=== PATIENT | male | born 1935 | race Caucasian/White ===

== ENCOUNTER 2016-07-10 01:17 | Emergency (ER) | payer MEDICARE, OTHER ==
[~2016-07-10] VITALS: Ht 180.3 cm; Wt 124.4 kg
[~2016-07-10 01:17] MED LIST: ACET-1574 PO; ALFU10TA23 PO; ASCO250T3 PO; ASCO500T3 PO; ASPI-630 PO; BUME2TAB PO; FINA5TAB PO; FURO-68 PO; FURO-69 PO; GABA600T2 PO; HYDR-2758 PO; METO50TA10 PO; METO50TA2 PO; MINE454C6 TP; MULT-245 PO; NIAC500T PO; POTA10TA10 PO; POTA20TA84 PO; RIVA20TA2 PO; SIMV40TA PO; VANC1VIA3 IV; WARF6TAB PO; ZINC110T PO; ZINC220C2 PO; ZINC220T PO; ZINC57OI TP
[2016-07-10 01:18] VITALS: BP 138/75
--- NOTE | 2016-07-10 01:50 | ED.ADGEN ---
Past History Past Medical History: Bronchitis, CHF, COPD Past Surgical History: No Surgical History Smoking: Cigarettes, Quit Greater Than 1 Year Alcohol Use: None Drug Use: None Adult General Chief Complaint Chief Complaint Right flank pain HPI HPI Patient is a 81 year old 2 male who presents with right lower back, flank pain states it started about an hour prior to calling EMS and the became very severe he took one of his pain meds and 2 of his 's tramadol. He states it was very sharp and made worse with twisting and turning. He states he's had discomfort like this before but never this severe. He has had a hiatal hernia repair and his gallbladder removed in the past. He denies any fevers chills nausea or vomiting. Currently states the pain is a 5 out of 10 and is bearable. He denies any testicular pain or discomfort. Review of Systems Review of Systems Constitutional: Denies fever or chills [] Eyes: Denies change in visual acuity, redness, or eye pain [] HENT: Denies nasal congestion or sore throat [] Respiratory: Denies cough or shortness of breath [] Cardiovascular: No additional information not addressed in HPI [] GI: Positive for for abdominal pain, denies any nausea, vomiting, bloody stools or diarrhea [] : Denies dysuria or hematuria [] Musculoskeletal: Denies back pain or joint pain [] Integument: Denies rash or skin lesions [] Neurologic: Denies headache, focal weakness or sensory changes [] Endocrine: Denies polyuria or polydipsia [] Current Medications Current Medications Current Medications Medications (Trade) Dose Ordered Sig/Ever Start Time Stop Time Status Last Admin Dose Admin Fentanyl Citrate (Fentanyl 2ml Vial) 100 mcg STK-MED ONCE 07/10/16 01:58 07/10/16 01:59 DC Info (Do NOT chart on this entry -- for MONITORING) 1 each PRN DAILY PRN 07/10/16 02:45 07/12/16 02:44 Iohexol (Omnipaque 300 Mg/ml) 75 ml 1X ONCE 07/10/16 02:45 07/10/16 02:46 DC 07/10/16 02:44 75 ML Sodium Chloride 1,000 ml @ 1,000 mls/hr Q1H 07/10/16 02:00 07/10/16 02:59 DC 07/10/16 02:00 1,000 MLS/HR Allergies Allergies Allergies Coded Allergies Type Severity Reaction Last Updated Verified No Known Drug Allergies 01/04/14 No Physical Exam Physical Exam Constitutional: Well developed, well nourished, no acute distress, non-toxic appearance. [] HENT: Normocephalic, atraumatic, bilateral external ears normal, oropharynx moist, no oral exudates, nose normal. [] Eyes: PERRLA, EOMI, conjunctiva normal, no discharge. [] Neck: Normal range of motion, no tenderness, supple, no stridor. [] Cardiovascular:Heart rate regular rhythm, no murmur [] Lungs & Thorax: Bilateral breath sounds clear to auscultation [] Abdomen: Bowel sounds high-pitched, mild tender to palpation in the right lower quadrant, soft, no masses, no pulsatile masses. [] Skin: Warm, dry, no erythema, no rash. [] Back: No tenderness, no CVA tenderness. [] Extremities: No tenderness, no cyanosis, no clubbing, ROM intact, no edema. [] Neurologic: Alert and oriented X 3, normal motor function, normal sensory function, no focal deficits noted. [] Psychologic: Affect normal, judgement normal, mood normal. [] Current Patient Data Vital Signs Vital Signs Date Time Temp Pulse Resp B/P (MAP) Pulse Ox O2 Delivery O2 Flow Rate FiO2 07/10/16 03:20 18 96 Room Air 07/10/16 01:18 98.2 85 Lab Results Laboratory Tests Test 07/10/16 01:35 07/10/16 01:45 Urine Collection Type Unknown Urine Color Yellow Urine Clarity Clear Urine pH 5.5 Urine Specific [place] 1.025 Urine Protein Neg (NEG-TRACE) Urine Glucose (UA) Neg mg/dL (NEG) Urine Ketones (Stick) Neg mg/dL (NEG) Urine Blood Neg (NEG) Urine Nitrite Neg (NEG) Urine Bilirubin Neg (NEG) Urine Urobilinogen Dipstick 0.2 mg/dL (0.2 mg/dL) Urine Leukocyte Esterase Trace (NEG) Urine RBC 0 /HPF (0-2) Urine WBC 11-20 /HPF (0-4) Urine Squamous Epithelial Cells Occ /LPF Urine Bacteria Few /HPF (0-FEW) White Blood Count 11.9 x10^3/uL (4.0-11.0) H Red Blood Count 4.66 x10^6/uL (4.30-5.70) Hemoglobin 13.4 g/dL (13.0-17.5) Hematocrit 41.7 % (39.0-53.0) Mean Corpuscular Volume 90 fL (79-100) Mean Corpuscular Hemoglobin 29 pg (25-35) Mean Corpuscular Hemoglobin Concent 32 g/dL (31-37) Red Cell Distribution Width 14.8 % (11.5-14.5) H Platelet Count 262 x10^3/uL (140-400) Neutrophils (%) (Auto) 67 % (31-73) Lymphocytes (%) (Auto) 21 % (24-48) L Monocytes (%) (Auto) 9 % (0-9) Eosinophils (%) (Auto) 2 % (0-3) Basophils (%) (Auto) 1 % (0-3) Neutrophils # (Auto) 8.0 x10^3uL (1.8-7.7) H Lymphocytes # (Auto) 2.5 x10^3/uL (1.0-4.8) Monocytes # (Auto) 1.1 x10^3/uL (0.0-1.1) Eosinophils # (Auto) 0.2 x10^3/uL (0.0-0.7) Basophils # (Auto) 0.1 x10^3/uL (0.0-0.2) Prothrombin Time 10.3 SEC (9.4-11.4) Prothrombin Time INR 1.0 (0.9-1.1) PTT 25 SEC (23-33) Sodium Level 142 mmol/L (136-145) Potassium Level 3.7 mmol/L (3.5-5.1) Chloride Level 104 mmol/L (98-107) Carbon Dioxide Level 28 mmol/L (21-32) Anion Gap 10 (6-14) Blood Urea Nitrogen 14 mg/dL (8-26) Creatinine 1.1 mg/dL (0.7-1.3) Estimated GFR (Cockcroft-Gault) 64.4 Glucose Level 106 mg/dL (70-99) H Calcium Level 8.9 mg/dL (8.5-10.1) Total Bilirubin 0.3 mg/dL (0.2-1.0) Direct Bilirubin 0.1 mg/dL (0.0-0.2) Aspartate Amino Transferase (AST) 14 U/L (15-37) L Alanine Aminotransferase (ALT) 17 U/L (16-63) Alkaline Phosphatase 88 U/L (46-116) Creatine Kinase 53 U/L (39-308) Total Protein 8.0 g/dL (6.4-8.2) Albumin 3.3 g/dL (3.4-5.0) L Lipase 191 U/L (73-393) EKG EKG [] Radiology/Procedures Radiology/Procedures [address] [address] IMAGING REPORT Signed PATIENT: JAMES DAVID ACCOUNT: [id number] : 1935 LOCATION: ER AGE: 81 SEX: M EXAM STATUS: REG ER ORD. PHYSICIAN: MARY INTERIANO MD REASON: abd pain PROCEDURE: CT ABD PELV W/ IV CONTRST ONLY PROCEDURE CT abdomen pelvis with contrast. HISTORY Severe right anterior abdominal and flank pain today. History of bladder cancer. TECHNIQUE Helical CT imaging of the abdomen and pelvis is performed after 75 cc Omnipaque 300 IV contrast. PQRS: One or more the following individualized dose reduction techniques were utilized for the study: 1. Automated exposure control. 2. Adjustment of the mA and/or kV according to patient size. 3. Use of iterative reconstruction technique. COMPARISON CT abdomen and pelvis July 17, 2015. FINDINGS Pericardial calcification re- demonstrated. Cardiac size upper limits of normal. Chronic posterior pleural thickening is unchanged. Mild atelectasis or scarring in the posterior lower lobes bilaterally. Cholecystectomy. Tiny hypodensity in the left hepatic lobe, too small to further characterize. Liver otherwise homogeneous. The spleen, pancreas, and adrenal glands are normal. Moderate atherosclerotic calcification of the abdominal aorta, no aneurysm. Infrarenal IVC filter. Bilateral renal cysts. No hydronephrosis. Stomach is not well distended limiting evaluation. No abdominal adenopathy or free fluid. No dilated small bowel. Moderate colon diverticulosis without evidence of diverticulitis. No colon wall thickening is identified. The appendix is normal. No bladder wall thickening is seen. There is a 1.3 centimeter soft tissue density in the lumen of the left posterior lateral bladder, image 79. Prostate size normal. Prostate protrudes into the base of the bladder. No pelvic free fluid. No acute bone abnormality. IMPRESSION 1. Small round soft tissue density in the left lateral bladder. Recurrent tumor cannot be excluded. 2. Moderate colon diverticulosis without evidence of diverticulitis. 3. Bilateral renal cysts. 4. Stable bilateral chronic pleural thickening. Electronically signed by: Xavier Caballero MD (July 10, 2016 03:23:05) DICTATED AND SIGNED BY: XAVIER CABALLERO MD DATE: 07/10/16 0323 CC: MARY INTERIANO MD; FELISHA SAEED MD ~ Course & Med Decision Making Course & Med Decision Making Pertinent Labs and Imaging studies reviewed. (See chart for details) CT scan shows an area in the urinary bladder that could be suspicious for recurrence of his tumor. Otherwise his labs show white blood cells in his urine without any other signs of infection. CT scan is nonacute. Patient feels better. His pain has improved without pain medicine. He is agreeable being discharged home and follow-up with his urologist at and his primary care physician. Please return back to ER for worsening pain, fevers, other concerns. He and his son are agreeable to the plan and being discharged in stable condition this time. Final Impression Final Impression Back pain Problems: Dragon Disclaimer Dragon Disclaimer This electronic medical record was generated, in whole or in part, using a voice recognition dictation system. MARY INTERIANO MD July 10, 2016 01:50
[2016-07-10] MEDS ORDERED: fentaNYL PF 100 MCG/2 ML VIAL ONE (01:58)
[2016-07-10 01:59] LABS: BASO # 0.1 x10^3/uL (0.0-0.2); BASO % 1 % (0-3); EOS # 0.2 x10^3/uL (0.0-0.7); EOS % 2 % (0-3); HEMATOCRIT 41.7 % (39.0-53.0); HEMOGLOBIN 13.4 g/dL (13.0-17.5); LYMPH # 2.5 x10^3/uL (1.0-4.8); LYMPH % 21 % (24-48); MEAN CORPUSCULAR HEMOGLOBIN 29 pg (25-35); MEAN CORPUSCULAR HGB CONC 32 g/dL (31-37); MEAN CORPUSCULAR VOLUME 90 fL (79-100); MONO # 1.1 x10^3/uL (0.0-1.1); MONO % 9 % (0-9); NEUT % 67 % (31-73); PLATELET COUNT 262 x10^3/uL (140-400); RED BLOOD COUNT 4.66 x10^6/uL (4.30-5.70); RED CELL DISTRIBUTION WIDTH 14.8 % (11.5-14.5); WHITE BLOOD COUNT 11.9 x10^3/uL (4.0-11.0)
[2016-07-10] MEDS ORDERED: fentaNYL PF 100 MCG/2 ML VIAL IV PRN (02:00)
[2016-07-10] MEDS ORDERED: IV NORMAL SALINE 1,000ML 1,000 ML IV SCH (02:00)
[2016-07-10 02:11] LABS: ALBUMIN 3.3 g/dL (3.4-5.0); CALCIUM 8.9 mg/dL (8.5-10.1); CREATININE 1.1 mg/dL (0.7-1.3); DIRECT BILIRUBIN 0.1 mg/dL (0.0-0.2); GFR 64.4; POTASSIUM 3.7 mmol/L (3.5-5.1); TOTAL BILIRUBIN 0.3 mg/dL (0.2-1.0)
[2016-07-10 02:14] LABS: BACTERIA,URINE FEW /HPF (0-FEW); BILIRUBIN,URINE NEG (NEG); CLARITY,URINE CLEAR; COLOR,URINE YELLOW; GLUCOSE,URINE NEG (NEG); NITRITE,URINE NEG (NEG); RBC,URINE 0 /HPF (0-2); SQUAMOUS EPITHELIAL CELL,UR OCC /LPF; UROBILINOGEN,URINE 0.2 mg/dL (0.2 mg/dL)
[2016-07-10] MEDS ORDERED: CONTRAST GIVEN MC PRN (02:45)
[2016-07-10] MEDS ORDERED: IOHEXOL 300 MG/ML 75 ML VIAL. IV ONE (02:45)
--- NOTE | 2016-07-10 03:24 | RAD ---
PROCEDURE CT abdomen pelvis with contrast. HISTORY Severe right anterior abdominal and flank pain today. History of bladder cancer. TECHNIQUE Helical CT imaging of the abdomen and pelvis is performed after 75 cc Omnipaque 300 IV contrast. PQRS: One or more the following individualized dose reduction techniques were utilized for the study: 1. Automated exposure control. 2. Adjustment of the mA and/or kV according to patient size. 3. Use of iterative reconstruction technique. COMPARISON CT abdomen and pelvis July 17, 2015. FINDINGS Pericardial calcification re- demonstrated. Cardiac size upper limits of normal. Chronic posterior pleural thickening is unchanged. Mild atelectasis or scarring in the posterior lower lobes bilaterally. Cholecystectomy. Tiny hypodensity in the left hepatic lobe, too small to further characterize. Liver otherwise homogeneous. The spleen, pancreas, and adrenal glands are normal. Moderate atherosclerotic calcification of the abdominal aorta, no aneurysm. Infrarenal IVC filter. Bilateral renal cysts. No hydronephrosis. Stomach is not well distended limiting evaluation. No abdominal adenopathy or free fluid. No dilated small bowel. Moderate colon diverticulosis without evidence of diverticulitis. No colon wall thickening is identified. The appendix is normal. No bladder wall thickening is seen. There is a 1.3 centimeter soft tissue density in the lumen of the left posterior lateral bladder, image 79. Prostate size normal. Prostate protrudes into the base of the bladder. No pelvic free fluid. No acute bone abnormality. IMPRESSION 1. Small round soft tissue density in the left lateral bladder. Recurrent tumor cannot be excluded. 2. Moderate colon diverticulosis without evidence of diverticulitis. 3. Bilateral renal cysts. 4. Stable bilateral chronic pleural thickening. Electronically signed by: Xavier Caballero MD (July 10, 2016 03:23:05)
== END 2016-07-10 04:30 | disposition home or self-care (01) ==
LOC: ER 01:17
DX: M54.89 Other dorsalgia (principal); J44.9 Chronic obstructive pulmonary disease, unspecified; I50.9 Heart failure, unspecified; Z87.891 Personal history of nicotine dependence
CPT/HCPCS: 36415; 74177; 80048; 80076; 81001; 82550; 83690; 85027; 85610; 85730; 87086; 96361; 96374; 99285; J3010; Q9967; J7030

== ENCOUNTER 2016-08-10 20:37 | Emergency (ER) | payer MEDICARE, OTHER ==
[~2016-08-10] VITALS: Ht 180.3 cm; Wt 124.4 kg
[2016-08-10 20:45] VITALS: BP 137/68
--- NOTE | 2016-08-10 21:01 | PHYS DOC ---
Past History Past Medical History: Bronchitis, CHF, COPD Past Surgical History: No Surgical History Smoking: Cigarettes, Quit Greater Than 1 Year Alcohol Use: None Drug Use: None Adult General Chief Complaint Chief Complaint: BACK PAIN OR INJURY HPI HPI Patient is a 81 year old M who presents with left flank pain that started while at dinner prior to arrival. Patient states he is admitted dinner and developed this left flank pain that wraps around to his left lower quadrant. Patient has no history of kidney stones. Patient denies any history of dysuria or blood in his urine. Patient denies any history of known abdominal aortic aneurysm. Patient denies any chest pain or shortness of breath. Patient denies any nausea/ vomiting/diarrhea. Patient states the pain is persisted any contact comfortable therefore came the emergency room. Pertinent exam findings: Positive tenderness to palpation of the left flank and left lower quadrant with no rebound tenderness, bowel sounds heard in all 4 quadrants ED course: Patient was seen and examined CBC, CMP, lipase, UA, CT scan abdomen and pelvis with contrast, 1 L normal saline bolus was ordered 0009: Updated patient on lab results and CT scan results patient is feeling better and wants to go home. Pertinent results: Laboratory was unremarkable CT scan abdomen and pelvis: IMPRESSION: Stable 15 mm nodule of the left lateral urinary bladder wall. Stable enlargement of the prostate gland which indents the floor of the the urinary bladder. Stable complex small posterior left-sided pleural fluid collection. No new abnormality of the abdomen or pelvis. MDM: After reviewing the chart, CC/HPI/PMH, physical exam, [lab results], [ radiological results], I do not believe the patient has an intra-abdominal emergency warranting further workup and/or admission at this time. Patient was made aware of the abnormalities noted on the CT scan for the enlarged prostate and a nodule on his bladder which urinary new about. It is recommended patient follow up with PCP in one to 2 days. Patient wants to go home. Patient is stable for discharge. Additional verbal discharge instructions were provided to the patient and that if symptoms get worse or any new symptoms arise that are worrisome to the patient he is to return to the emergency room immediately Review of Systems Review of Systems GEN: Denies fevers, chills, sweats HEENT: Denies blurred vision, sore throat CV: Denies chest pain RESP: Denies shortness of air, cough GI: Left flank pain NEURO: Denies confusion, dizziness MSK: Denies weakness, joint pain/swelling Current Medications Current Medications Current Medications Medications (Trade) Dose Ordered Sig/Ever Start Time Stop Time Status Last Admin Dose Admin Sodium Chloride 1,000 ml @ 1,000 mls/hr 1X ONCE 08/10/16 21:00 08/10/16 21:59 UNV Allergies Allergies Allergies Coded Allergies Type Severity Reaction Last Updated Verified No Known Drug Allergies 01/04/14 No Physical Exam Physical Exam GEN.: No apparent distress. Alert and oriented. HEENT: Head is normocephalic, atraumatic NECK: Supple. LUNGS: CTAB. HEART: RRR, S1, S2 present. Peripheral pulses intact ABDOMEN: Soft, Positive tenderness to palpation of the left flank and left lower quadrant with no rebound tenderness, bowel sounds heard in all 4 quadrants EXTREMITIES: Without any cyanosis. NEUROLOGIC: Normal speech, normal tone PSYCHIATRIC: Normal affect, normal mood. SKIN: No ulcerations Current Patient Data Lab Results Laboratory Tests Test 08/10/16 21:34 White Blood Count 9.8 x10^3/uL Red Blood Count 4.10 x10^6/uL Hemoglobin 11.8 g/dL Hematocrit 36.7 % Mean Corpuscular Volume 90 fL Mean Corpuscular Hemoglobin 29 pg Mean Corpuscular Hemoglobin Concent 32 g/dL Red Cell Distribution Width 15.1 % Platelet Count 200 x10^3/uL Neutrophils (%) (Auto) 69 % Lymphocytes (%) (Auto) 19 % Monocytes (%) (Auto) 10 % Eosinophils (%) (Auto) 2 % Basophils (%) (Auto) 1 % Neutrophils # (Auto) 6.7 x10^3uL Lymphocytes # (Auto) 1.9 x10^3/uL Monocytes # (Auto) 1.0 x10^3/uL Eosinophils # (Auto) 0.2 x10^3/uL Basophils # (Auto) 0.1 x10^3/uL Urine Collection Type Unknown Urine Color Straw Urine Clarity Clear Urine pH 6.0 Urine Specific [place] 1.020 Urine Protein Neg Urine Glucose (UA) Neg mg/dL Urine Ketones (Stick) Neg mg/dL Urine Blood Neg Urine Nitrite Neg Urine Bilirubin Neg Urine Urobilinogen Dipstick 1 mg/dL Urine Leukocyte Esterase Trace Urine RBC 0 /HPF Urine WBC 1-4 /HPF Urine Squamous Epithelial Cells Many /LPF Urine Bacteria 0 /HPF Urine Mucus Slight /LPF Sodium Level 142 mmol/L Potassium Level 3.9 mmol/L Chloride Level 107 mmol/L Carbon Dioxide Level 26 mmol/L Anion Gap 9 Blood Urea Nitrogen 17 mg/dL Creatinine 1.1 mg/dL Estimated GFR (Cockcroft-Gault) 64.4 BUN/Creatinine Ratio 15 Glucose Level 106 mg/dL Lactic Acid Level 1.4 mmol/L Calcium Level 8.6 mg/dL Total Bilirubin 0.2 mg/dL Aspartate Amino Transf (AST/SGOT) 15 U/L Alanine Aminotransferase (ALT/SGPT) 17 U/L Alkaline Phosphatase 78 U/L Total Protein 7.0 g/dL Albumin 3.0 g/dL Albumin/Globulin Ratio 0.8 Lipase 122 U/L Current Medications Medications (Trade) Dose Ordered Sig/Ever Route PRN Reason Start Time Stop Time Status Last Admin Dose Admin Sodium Chloride 1,000 ml @ 1,000 mls/hr 1X ONCE IV 08/10/16 21:15 08/10/16 22:14 DC 08/10/16 21:30 Iohexol (Omnipaque 300 Mg/ml) 75 ml 1X ONCE IV 08/10/16 21:15 08/10/16 21:16 DC 08/10/16 21:58 Info (Do NOT chart on this entry -- for MONITORING) 1 each PRN DAILY PRN MC SEE COMMENTS 08/10/16 21:15 08/12/16 21:14 EKG EKG [] Radiology/Procedures Radiology/Procedures CT scan abdomen and pelvis: IMPRESSION: Stable 15 mm nodule of the left lateral urinary bladder wall. Stable enlargement of the prostate gland which indents the floor of the the urinary bladder. Stable complex small posterior left-sided pleural fluid collection. No new abnormality of the abdomen or pelvis.[] Course & Med Decision Making Course & Med Decision Making Pertinent Labs and Imaging studies reviewed. (See chart for details) [] Dragon Disclaimer Dragon Disclaimer This chart was dictated in whole or in part using Voice Recognition software in a busy, high-work load, and often noisy Emergency Department environment. It may contain unintended and wholly unrecognized errors or omissions. Departure Departure: Impression: Primary Impression: Left flank pain Disposition: HOME, SELF-CARE Condition: IMPROVED Referrals: FELISHA SAEED MD (PCP) Patient Instructions: Abdominal Pain (Nonspecific) Additional Instructions: Please follow up with her family doctor in the next one to 2 days and return symptoms increase GORDO WILD DO Aug 10, 2016 21:01
[2016-08-10] MEDS ORDERED: IV NORMAL SALINE 1,000ML 1,000 ML IV ONE (21:15)
[2016-08-10] MEDS ORDERED: IOHEXOL 300 MG/ML 75 ML VIAL. IV ONE (21:15)
[2016-08-10] MEDS ORDERED: CONTRAST GIVEN MC PRN (21:15)
[2016-08-10 22:02] LABS: BASO # 0.1 x10^3/uL (0.0-0.2); BASO % 1 % (0-3); EOS # 0.2 x10^3/uL (0.0-0.7); EOS % 2 % (0-3); HEMATOCRIT 36.7 % (39.0-53.0); HEMOGLOBIN 11.8 g/dL (13.0-17.5); LYMPH # 1.9 x10^3/uL (1.0-4.8); LYMPH % 19 % (24-48); MEAN CORPUSCULAR HEMOGLOBIN 29 pg (25-35); MEAN CORPUSCULAR HGB CONC 32 g/dL (31-37); MEAN CORPUSCULAR VOLUME 90 fL (79-100); MONO % 10 % (0-9); NEUT # 6.7 x10^3uL (1.8-7.7); NEUT % 69 % (31-73); PLATELET COUNT 200 x10^3/uL (140-400); RED CELL DISTRIBUTION WIDTH 15.1 % (11.5-14.5); WHITE BLOOD COUNT 9.8 x10^3/uL (4.0-11.0)
[2016-08-10 22:13] LABS: ALBUMIN/GLOBULIN RATIO 0.8 (1.0-1.7); CALCIUM 8.6 mg/dL (8.5-10.1); CREATININE 1.1 mg/dL (0.7-1.3); GFR 64.4; POTASSIUM 3.9 mmol/L (3.5-5.1); TOTAL BILIRUBIN 0.2 mg/dL (0.2-1.0)
[2016-08-10 22:57] LABS: BACTERIA,URINE 0 /HPF (0-FEW); BILIRUBIN,URINE NEG (NEG); CLARITY,URINE CLEAR; COLOR,URINE STRAW; GLUCOSE,URINE NEG (NEG); NITRITE,URINE NEG (NEG); RBC,URINE 0 /HPF (0-2); SQUAMOUS EPITHELIAL CELL,UR MANY /LPF; UROBILINOGEN,URINE 1 mg/dL (0.2 mg/dL)
--- NOTE | 2016-08-10 23:26 | RAD ---
CT study of the abdomen and pelvis with contrast Clinical indications: Severe left flank pain with periodic cramping. History of hiatal hernia repair and cholecystectomy and bladder cancer. TECHNIQUE: After IV infusion of 75 cc of Omnipaque 300, helical CT scanning of the abdomen and pelvis was performed. No GI contrast was administered. This may decrease the sensitivity to detect GI tract pathology. PQRS compliance Statement One or more of the following individualized dose reduction techniques were utilized for this study: 1. Automated exposure control 2. Adjustment of the mA and/or kV according to patient size 3. Use of iterative reconstruction technique COMPARISON: July 10, 2016. FINDINGS: Small cyst of the left lobe of the liver is unchanged. The spleen is not enlarged. Diffuse fatty atrophy of the pancreas is seen. The gallbladder is surgically absent. No extrahepatic biliary ductal dilatation is seen. No adrenal mass is evident. Bilateral renal cysts are seen. No hydronephrosis or hydroureter is seen. There is a nodule of the left lateral aspect of the urinary bladder which measures 15 mm. This is unchanged. There is enlargement of the prostate gland which indents the floor of the urinary bladder. This is unchanged. No focal aneurysmal dilatation of the abdominal aorta is seen. IVC filter is in place. No enlarged abdominal or pelvic lymphadenopathy is seen. No obstructive bowel pattern is seen. The appendix is normal. No free intraperitoneal air or free fluid or mesenteric edema is seen. There is mild pleural thickening posteriorly on the right side. There is a small complex posterior left sided pleural fluid collection which is unchanged. Again seen is calcification of pericardium. Old healed lower right rib cage fracture is seen. No osteolytic process is seen. IMPRESSION: Stable 15 mm nodule of the left lateral urinary bladder wall. Stable enlargement of the prostate gland which indents the floor of the the urinary bladder. Stable complex small posterior left-sided pleural fluid collection. No new abnormality of the abdomen or pelvis. Electronically signed by: Darrick Gipson MD (08/10/2016 11:23 PM)
== END 2016-08-11 00:25 | disposition home or self-care (01) ==
LOC: ER 20:37
DX: R10.32 Left lower quadrant pain (principal); J44.9 Chronic obstructive pulmonary disease, unspecified; I50.9 Heart failure, unspecified; F17.210 Nicotine dependence, cigarettes, uncomplicated
CPT/HCPCS: 36415; 74177; 80053; 81001; 83605; 83690; 85027; 96360; 99285; Q9967; J7030

== ENCOUNTER → 2016-10-24 | Outpatient (CLI) | payer MEDICARE, OTHER ==
--- NOTE | 2016-10-24 11:34 | RAD ---
Right foot, 3 views, 10/24/2016: History: Toe pain, injury There is a mild hallux valgus deformity with associated degenerative change at the first MTP joint. The bony structures are demineralized. No acute fracture or dislocation is identified. IMPRESSION: 1. Demineralization. 2. No acute bony abnormality is detected. 3. Mild hallux valgus deformity with degenerative change at the first MTP joint.
== END | disposition home or self-care (01) ==
LOC: DXRADRC 11:12
PROVIDERS: ATTEND Physician Assistant Medical
DX: S99.921D Unspecified injury of right foot, subsequent encounter (principal); M20.11 Hallux valgus (acquired), right foot; X58.XXXD Exposure to other specified factors, subsequent encounter
CPT/HCPCS: 73630

== ENCOUNTER 2018-05-22 15:59 | Emergency (ER) | payer MEDICARE, OTHER ==
[~2018-05-22] VITALS: Ht 182.9 cm; Wt 120.2 kg
[~2018-05-22 15:59] MED LIST changes: +DIAZ5TAB PO; -GABA600T2 PO; +GABA600T7 PO; +HYDR-2155 PO; -HYDR-2758 PO; +IBUP200T44 PO; -METO50TA10 PO; -METO50TA2 PO; +METO50TA29 PO; +METO50TA6 PO
--- NOTE | 2018-05-22 16:29 | PHYS DOC ---
Past History Past Medical History: A-Fib, High Cholesterol, Heart Disease, Hypertension Past Surgical History: Cholecystectomy, Other Additional Past Surgical Histo: hernia repair, Smoking: Non-smoker Alcohol Use: Rarely Drug Use: None Adult General Chief Complaint Chief Complaint: BACK PAIN - NO INJURY HPI HPI 83-year-old male presents with bilateral low back pain. Patient states that he was sitting on the couch yesterday evening when he started to have discomfort. It feels like a tight grabbing sensation. It comes and goes in waves. He denies any trauma, falls, or overuse. He has chronic pain for which he takes Nucynta, an opiod. He took 2 of these prior to arrival without relief. He denies dysuria or urinary frequency. Review of Systems Review of Systems Constitutional: Denies fever or chills [] Eyes: Denies change in visual acuity, redness, or eye pain [] HENT: Denies nasal congestion or sore throat [] Respiratory: Denies cough or shortness of breath [] Cardiovascular: No additional information not addressed in HPI [] GI: Denies abdominal pain, nausea, vomiting, bloody stools or diarrhea [] : Denies dysuria or hematuria [] Musculoskeletal: Bilateral low back pain[] Integument: Denies rash or skin lesions [] Neurologic: Denies headache, focal weakness or sensory changes [] Endocrine: Denies polyuria or polydipsia [] All other systems were reviewed and found to be within normal limits, except as documented in this note. Current Medications Current Medications Current Medications Medications (Trade) Dose Ordered Sig/Ever Start Time Stop Time Status Last Admin Dose Admin Diazepam (Valium) 5 mg 1X ONCE 05/22/18 16:30 05/22/18 16:31 UNV Allergies Allergies Allergies Coded Allergies Type Severity Reaction Last Updated Verified No Known Drug Allergies 03/24/17 No Physical Exam Physical Exam Constitutional: Well developed, obese, well nourished, no acute distress, non- toxic appearance. [] HENT: Normocephalic, atraumatic, bilateral external ears normal, oropharynx moist, no oral exudates, nose normal. [] Eyes: PERRLA, EOMI, conjunctiva normal, no discharge. [] Neck: Normal range of motion, no tenderness, supple, no stridor. [] Cardiovascular:Heart rate regular rhythm, no murmur [] Lungs & Thorax: Bilateral breath sounds clear to auscultation [] Abdomen: Bowel sounds normal, soft, no tenderness, no masses, no pulsatile masses. [] Skin: Warm, dry, no erythema, no rash. [] Back: Bilateral lumbar paraspinal muscle spasms and tenderness.[] Extremities: No tenderness, no cyanosis, no clubbing, ROM intact, no edema. [] Neurologic: Alert and oriented X 3, normal motor function, normal sensory function, no focal deficits noted. [] Psychologic: Affect normal, judgement normal, mood normal. [] Current Patient Data Vital Signs Vital Signs Date Time Temp Pulse Resp B/P (MAP) Pulse Ox O2 Delivery O2 Flow Rate FiO2 05/22/18 16:05 97.9 94 20 98 Room Air EKG EKG [] Radiology/Procedures Radiology/Procedures [] Impressions: Examination: 2 views of the lumbar spine HISTORY: History of back pain COMPARISON: None available FINDINGS: The lumbar vertebral body heights are maintained. No evidence of listhesis. Moderate intervertebral disc height loss identified in the lumbar spine. The facets are well aligned. Moderate multilevel bilateral neural foramina narrowing lumbar spine. Moderate facet degenerative changes. IVC filter is identified projecting in the abdomen IMPRESSION: Moderate multilevel degenerative changes lumbar spine. Electronically signed by: Wan Casillas MD (05/22/2018 5:00 PM) [id number] DICTATED AND SIGNED BY: WAN CASILLAS MD DATE: 05/22/18 1700 CC: MARTHA SHAFER DO; FELISHA SAEED MD Chest, PA and Lateral: Technique: PA and lateral views of the chest were obtained. History: Shortness of breath. Comparison: None. Findings: Mild cardiomegaly.. There is mild prominent appearing bilateral interstitial lung markings likely mild congestive changes.. Minimal bibasilar lung airspace opacities.. Impression: 1. Mild congestive changes. 2. Mild bibasilar lung airspace opacities likely atelectasis or infiltrates.. Electronically signed by: Wan Casillas MD (05/22/2018 4:59 PM) [id number] DICTATED AND SIGNED BY: WAN CASILLAS MD DATE: 05/22/18 7935 CC: MARTHA SHAFER DO; FELISHA SAEED MD Course & Med Decision Making Course & Med Decision Making Pertinent Labs and Imaging studies reviewed. (See chart for details) The patient's chest x-ray is suggestive of pneumonia. By my personal review I am concerned about pneumonia. I will treat the patient with azithromycin. I will give his first dose in the ED. He is not recently been admitted to health care facility. He does not live in a group home. He would prefer to go home other than be admitted. I believe this is reasonable given that he does not have a fever and no other signs of sepsis. He is stable for discharge at this time. [] Dragon Disclaimer Dragon Disclaimer This electronic medical record was generated, in whole or in part, using a voice recognition dictation system. Departure Departure: Impression: Primary Impression: Pneumonia Disposition: 01 HOME, SELF-CARE Condition: STABLE Referrals: FELISHA SAEED MD (PCP) Patient Instructions: Pneumonia, Adult, [id number]-Pfxb Scripts Azithromycin (AZITHROMYCIN TABLET) 250 Mg Tablet 250 MG PO DAILY for ANTI-BIOTIC for 4 Days, #4 TAB 0 Refills Prov: MARTHA SHAFER DO 05/22/18 Problem Qualifiers Primary Impression: Pneumonia Pneumonia type: due to unspecified organism Laterality: left Lung location : lower lobe of lung Qualified Codes: J18.1 - Lobar pneumonia, unspecified organism MARTHA SHAFER DO May 22, 2018 16:29
[2018-05-22] MEDS ORDERED: diazePAM 5 MG TABLET PO ONE (16:50)
--- NOTE | 2018-05-22 17:02 | RAD ---
Chest, PA and Lateral: Technique: PA and lateral views of the chest were obtained. History: Shortness of breath. Comparison: None. Findings: Mild cardiomegaly.. There is mild prominent appearing bilateral interstitial lung markings likely mild congestive changes.. Minimal bibasilar lung airspace opacities.. Impression: 1. Mild congestive changes. 2. Mild bibasilar lung airspace opacities likely atelectasis or infiltrates.. Electronically signed by: Wan Casillas MD (05/22/2018 4:59 PM) [id number]
--- NOTE | 2018-05-22 17:03 | RAD ---
Examination: 2 views of the lumbar spine HISTORY: History of back pain COMPARISON: None available FINDINGS: The lumbar vertebral body heights are maintained. No evidence of listhesis. Moderate intervertebral disc height loss identified in the lumbar spine. The facets are well aligned. Moderate multilevel bilateral neural foramina narrowing lumbar spine. Moderate facet degenerative changes. IVC filter is identified projecting in the abdomen IMPRESSION: Moderate multilevel degenerative changes lumbar spine. Electronically signed by: Wan Casillas MD (05/22/2018 5:00 PM) [id number]
[2018-05-22 17:22] LABS: BACTERIA,URINE 0 /HPF (0-FEW); BILIRUBIN,URINE NEG (NEG); CLARITY,URINE CLEAR; COLOR,URINE YELLOW; GLUCOSE,URINE NEG (NEG); NITRITE,URINE NEG (NEG); RBC,URINE 0 /HPF (0-2); SQUAMOUS EPITHELIAL CELL,UR OCC /LPF; UROBILINOGEN,URINE 1 mg/dL (0.2 mg/dL)
[2018-05-22] MEDS ORDERED: AZITHROMYCIN 250 MG TABLET. PO ONE (18:00)
[2018-05-22] MEDS ORDERED: AZIT250T6 PO (18:00)
[2018-05-22 18:10] VITALS: BP 130/80
[2018-06-07] MEDS ORDERED: DILT120C85 PO (15:31)
== END 2018-05-22 18:10 | disposition home or self-care (01) ==
LOC: ER 15:59 → MERGE 15:59 → ER 18:10
DX: J18.1 Lobar pneumonia, unspecified organism (principal); M54.5 Low back pain; G89.29 Other chronic pain; I48.91 Unspecified atrial fibrillation; E78.00 Pure hypercholesterolemia, unspecified; I11.9 Hypertensive heart disease without heart failure
CPT/HCPCS: 71046; 72100; 81001; 87086; 99284; J0456

== ENCOUNTER 2018-06-05 07:57 | Emergency (ER) | payer MEDICARE, OTHER ==
[~2018-06-05] VITALS: Ht 182.9 cm; Wt 118.0 kg
[~2018-06-05 07:57] MED LIST changes: +AZIT250T6 PO
--- NOTE | 2018-06-05 08:35 | RAD ---
CHEST AP ONLY History: CHEST PAIN Comparison: May 22, 2018 Findings: Single view of the chest is submitted. Pericardial cardiac silhouette is again enlarged. There is atherosclerotic calcification aortic arch. There is interstitial opacity bilaterally although decreased. There is unchanged mild blunting of the costophrenic sulci bilaterally. There is no pneumothorax. Impression: 1. Interstitial opacity has decreased, no lobar consolidation. There is unchanged mild blunting of the costophrenic sulci. Electronically signed by: Arthur Maxwell MD (06/05/2018 8:32 AM) [id number]
[2018-06-05 08:43] LABS: BASO % 0 % (0-3); EOS # 0.2 x10^3/uL (0.0-0.7); EOS % 2 % (0-3); HEMATOCRIT 44.2 % (39.0-53.0); HEMOGLOBIN 14.6 g/dL (13.0-17.5); LYMPH # 1.5 x10^3/uL (1.0-4.8); LYMPH % 19 % (24-48); MEAN CORPUSCULAR HEMOGLOBIN 30 pg (25-35); MEAN CORPUSCULAR HGB CONC 33 g/dL (31-37); MEAN CORPUSCULAR VOLUME 90 fL (79-100); MONO # 0.7 x10^3/uL (0.0-1.1); MONO % 9 % (0-9); NEUT # 5.5 x10^3uL (1.8-7.7); NEUT % 70 % (31-73); PLATELET COUNT 205 x10^3/uL (140-400); RED CELL DISTRIBUTION WIDTH 14.4 % (11.5-14.5); WHITE BLOOD COUNT 7.9 x10^3/uL (4.0-11.0)
[2018-06-05] MEDS ORDERED: diazePAM 5 MG TABLET PO ONE (08:45)
--- NOTE | 2018-06-05 09:13 | PHYS DOC ---
Past History Past Medical History: A-Fib, High Cholesterol, Heart Disease, Hypertension, Pneumonia Past Surgical History: Cholecystectomy, Other Additional Past Surgical Histo: hernia repair, Smoking: Non-smoker Alcohol Use: Rarely Drug Use: None Adult General Chief Complaint Chief Complaint: BACK PAIN - NO INJURY HPI HPI 83-year-old male presents with mid back pain. Patient states he's having spasms in his back the last 10-15 seconds at a time. It is keep coming and going. He was just sitting and watching TV when the spasms started. The patient has had intermittent problems with this in the past. He has had Valium in the past. He is currently on Nucynta, but ran out yesterday. He denies chest pain, shortness breath, or diaphoresis. He denies any recent falls or new injuries. He denies fever or chills. Review of Systems Review of Systems Constitutional: Denies fever or chills [] Eyes: Denies change in visual acuity, redness, or eye pain [] HENT: Denies nasal congestion or sore throat [] Respiratory: Denies cough or shortness of breath [] Cardiovascular: No additional information not addressed in HPI [] GI: Denies abdominal pain, nausea, vomiting, bloody stools or diarrhea [] : Denies dysuria or hematuria [] Musculoskeletal: Thoracic back pain[] Integument: Denies rash or skin lesions [] Neurologic: Denies headache, focal weakness or sensory changes [] Endocrine: Denies polyuria or polydipsia [] All other systems were reviewed and found to be within normal limits, except as documented in this note. Current Medications Current Medications Current Medications Medications (Trade) Dose Ordered Sig/Ever Start Time Stop Time Status Last Admin Dose Admin Diazepam (Valium) 5 mg 1X ONCE 06/05/18 08:45 06/05/18 08:46 DC 06/05/18 08:50 5 MG Allergies Allergies Allergies Coded Allergies Type Severity Reaction Last Updated Verified No Known Drug Allergies 06/05/18 No Physical Exam Physical Exam Constitutional: Well developed, well nourished, no acute distress, non-toxic appearance. [] HENT: Normocephalic, atraumatic, bilateral external ears normal, oropharynx moist, no oral exudates, nose normal. [] Eyes: PERRLA, EOMI, conjunctiva normal, no discharge. [] Neck: Normal range of motion, no tenderness, supple, no stridor. [] Cardiovascular:Heart rate regular rhythm, no murmur [] Lungs & Thorax: Bilateral breath sounds clear to auscultation [] Abdomen: Bowel sounds normal, soft, no tenderness, no masses, no pulsatile masses. [] Skin: Warm, dry, no erythema, no rash. [] Back: T1-T5 paraspinal spasm and mild tenderness.[] Extremities: No tenderness, no cyanosis, no clubbing, ROM intact, no edema. [] Neurologic: Alert and oriented X 3, normal motor function, normal sensory function, no focal deficits noted. [] Psychologic: Affect normal, judgement normal, mood normal. [] Current Patient Data Vital Signs Vital Signs Date Time Temp Pulse Resp B/P (MAP) Pulse Ox O2 Delivery O2 Flow Rate FiO2 06/05/18 08:13 97.7 96 17 97 Room Air Lab Results Laboratory Tests Test 06/05/18 08:28 White Blood Count 7.9 x10^3/uL (4.0-11.0) Red Blood Count 4.90 x10^6/uL (4.30-5.70) Hemoglobin 14.6 g/dL (13.0-17.5) Hematocrit 44.2 % (39.0-53.0) Mean Corpuscular Volume 90 fL (79-100) Mean Corpuscular Hemoglobin 30 pg (25-35) Mean Corpuscular Hemoglobin Concent 33 g/dL (31-37) Red Cell Distribution Width 14.4 % (11.5-14.5) Platelet Count 205 x10^3/uL (140-400) Neutrophils (%) (Auto) 70 % (31-73) Lymphocytes (%) (Auto) 19 % (24-48) L Monocytes (%) (Auto) 9 % (0-9) Eosinophils (%) (Auto) 2 % (0-3) Basophils (%) (Auto) 0 % (0-3) Neutrophils # (Auto) 5.5 x10^3uL (1.8-7.7) Lymphocytes # (Auto) 1.5 x10^3/uL (1.0-4.8) Monocytes # (Auto) 0.7 x10^3/uL (0.0-1.1) Eosinophils # (Auto) 0.2 x10^3/uL (0.0-0.7) Basophils # (Auto) 0.0 x10^3/uL (0.0-0.2) EKG EKG Sinus rhythm, rate 93, normal axis, no ST elevations or depressions, right bundle branch block.[] Radiology/Procedures Radiology/Procedures [] Impressions: CHEST AP ONLY History: CHEST PAIN Comparison: May 22, 2018 Findings: Single view of the chest is submitted. Pericardial cardiac silhouette is again enlarged. There is atherosclerotic calcification aortic arch. There is interstitial opacity bilaterally although decreased. There is unchanged mild blunting of the costophrenic sulci bilaterally. There is no pneumothorax. Impression: 1. Interstitial opacity has decreased, no lobar consolidation. There is unchanged mild blunting of the costophrenic sulci. Electronically signed by: Nilay Ortega MD (06/05/2018 8:32 AM) [facility] DICTATED AND SIGNED BY: NILAY ORTEGA MD DATE: 06/05/18831 CC: MARTHA SHAFER DO; FELISHA SAEED MD ~ Course & Med Decision Making Course & Med Decision Making Pertinent Labs and Imaging studies reviewed. (See chart for details) The patient does appear to be having back spasms. His labs are unremarkable. Troponin is negative. EKG is negative for acute findings. Chest x-ray is improved from previous diagnosis of pneumonia. We have given him 5 mg of Valium PO. This has helped significantly. I will discharge him with a short course of this medication and advice and follow-up with his primary care physician. He is stable for discharge at this time. [] Dragon Disclaimer Dragon Disclaimer This electronic medical record was generated, in whole or in part, using a voice recognition dictation system. Departure Departure: Impression: Primary Impression: Spasm of thoracic back muscle Disposition: HOME, SELF-CARE Condition: STABLE Referrals: FELISHA SAEED MD (PCP) Patient Instructions: Thoracic Strain, Ekof-tj-Mumy Scripts Diazepam (VALIUM) 5 Mg Tablet 5 MG PO TID PRN for SEVERE PAIN for 4 Days, #12 TAB Prov: MARTHA SHAFER DO 06/05/18 MARTHA SHAFER DO Jun 05, 2018 09:13
[2018-06-05 09:15] LABS: POTASSIUM ISTAT 3.8 mmol/L (3.5-5.0)
[2018-06-05 09:16] LABS: HEMOGLOBIN ISTAT 15.3 gm/dL
[2018-06-05 09:57] LABS: ALBUMIN 3.9 g/dL (3.4-5.0); TOTAL PROTEIN 7.6 g/dL (6.4-8.2)
[2018-06-05 09:58] LABS: TOTAL BILIRUBIN 0.7 mg/dL (0.2-1.0)
[2018-06-05] MEDS ORDERED: DIAZ5TAB PO (10:20)
[2018-06-05 10:32] VITALS: BP 138/81
--- NOTE | 2018-06-05 17:18 | EKG ---
[address] [address] Test Date: 2018-06-05 Test Time: 08:18:27 Pat Name: JAMES NAQVI Department: Room: Gender: M [employer]: LARON : 1935 Requested By: MARTHA SHAFER Order Number: [id number] Reading MD: Measurements Intervals [place] Rate: 93 P: AR: QRS: 87 QRSD: 124 T: 7 QT: 392 QTc: 490 Interpretive Statements SINUS RHYTHM RIGHT BUNDLE BRANCH BLOCK RVH WITH REPOLARIZATION ABNORMALITY QRS(T) CONTOUR ABNORMALITY CONSIDER ANTEROSEPTAL MYOCARDIAL DAMAGE ABNORMAL ECG RI6.01 No previous ECG available for comparison
[2018-06-07] MEDS ORDERED: DILT120C85 PO (15:31)
== END 2018-06-05 10:35 | disposition home or self-care (01) ==
LOC: ER 07:57 → MERGE 07:57 → ER 10:35
DX: M62.830 Muscle spasm of back (principal); M54.6 Pain in thoracic spine; I48.91 Unspecified atrial fibrillation; E78.00 Pure hypercholesterolemia, unspecified; I11.9 Hypertensive heart disease without heart failure; Z90.49 Acquired absence of other specified parts of digestive tract
CPT/HCPCS: 36415; 71045; 80047; 80076; 84484; 85025; 93005; 99284

== ENCOUNTER 2018-06-06 09:30 | Inpatient (IN) | payer MEDICARE, OTHER ==
[2018-06-06] VITALS (9 sets, daily range): BP systolic 125–169; BP diastolic 64–91
[~2018-06-06] VITALS: Ht 180.3 cm; Wt 116.3 kg
[2018-06-06] MEDS ORDERED: ASPIRIN 325 MG TABLET PO ONE (11:00)
[2018-06-06 11:57] LABS: BASO # 0.1 x10^3/uL (0.0-0.2); BASO % 1 % (0-3); EOS # 0.1 x10^3/uL (0.0-0.7); EOS % 1 % (0-3); HEMATOCRIT 43.9 % (39.0-53.0); HEMOGLOBIN 14.2 g/dL (13.0-17.5); LYMPH # 1.3 x10^3/uL (1.0-4.8); LYMPH % 16 % (24-48); MEAN CORPUSCULAR HEMOGLOBIN 29 pg (25-35); MEAN CORPUSCULAR HGB CONC 32 g/dL (31-37); MEAN CORPUSCULAR VOLUME 91 fL (79-100); MONO # 0.6 x10^3/uL (0.0-1.1); MONO % 7 % (0-9); NEUT # 6.2 x10^3uL (1.8-7.7); NEUT % 76 % (31-73); PLATELET COUNT 200 x10^3/uL (140-400); RED BLOOD COUNT 4.84 x10^6/uL (4.30-5.70); RED CELL DISTRIBUTION WIDTH 14.5 % (11.5-14.5); WHITE BLOOD COUNT 8.3 x10^3/uL (4.0-11.0)
--- NOTE | 2018-06-06 12:05 | RAD ---
Chest, 2 views, 06/06/2018: HISTORY: Chest pain Comparison is made to a study from 08/04/2015. The heart is at the upper limits of normal in size. There is calcific plaquing of the aorta. There is flattening of the hemidiaphragms with blunting of the costophrenic angles, likely due to scarring. There are a few scattered parenchymal scars. No pulmonary consolidation is seen. Mild spurring is present in the spine. Incidental note is made of a inferior vena cava filter. IMPRESSION: 1. Borderline cardiomegaly and aortic atherosclerosis. 2. Pleural/parenchymal scarring. 3. No acute infiltrate is evident. Electronically signed by: Huey Brunner MD (06/06/2018 12:02 PM) [facility]
[2018-06-06 12:12] LABS: ALBUMIN 3.5 g/dL (3.4-5.0); CALCIUM 8.6 mg/dL (8.5-10.1); CREATININE 1.1 mg/dL (0.7-1.3); GFR 64.1; POTASSIUM 4.1 mmol/L (3.5-5.1); TOTAL BILIRUBIN 0.4 mg/dL (0.2-1.0)
--- NOTE | 2018-06-06 12:21 | PDOC2 ---
NIKHIL DUNNE Kulwant [employer] 06/06/18 1221: CONSULT Date of Admission DATE: 06/06/18 TIME: 12:20 Reason for Consult: CP, shortness of breath History of Present Illness Mr Rubio is an 83 year old male who presents as direct admission from his PCP office with complaints of chest pain. He is a very poor historian but is accompanied by his son. They report some chest pain that occurs with low back pain. They also report increased dyspnea on exertion over the last 3 months. he reports 2 pillow orthopnea and edema. He denies productive cough, fever or chills, however his son reports he has had increased cough. 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 He denies cardiac cath previously, however records from [facility] show prior MO with PCI/ stenting as well as a high 95% RCA lesion that was not amenable to PCI. Past Medical History echo 2015 Technically difficult study. Valves not well visualized. Lumason echo contrast used for endocardial delineation. The left ventricular systolic function is normal. The Ejection Fraction is estimated at 60%. No obvious regional wall motion abnormalities. Trace tricuspid regurgitation. The PA pressure was estimated at 28 mmHg. There is no evidence of significant pericardial effusion. ignificant for cellulitis in the lower extremity in 2013. He has also chronic venous insufficiency and chronic venous ulcers of the left ankle. He has a remote history of bladder cancer. CT scan done of his abdomen and pelvis in 2014 showed some asymmetric wall thickening of the left aspect of the urinary bladder, history of pulmonary hypertension, diabetes, hyperlipidemia, tricuspid regurgitation, chronic low back pain, type 2 diabetes, benign prostatic hypertrophy and bilateral DVTs. Cardiovascular: CHF, hyperipidemia, Other (PVD, CMP, ) Pulmonary: COPD, Pulmonary embolus, Other (IVC filter) Musculoskeletal: Osteoarthritis, Other (injured back after a fall approx 2 years ago but no treatment at the time) Renal/: Benign prostatic enlarg. Past Surgical History cholecystectomy, hiatal hernia repair Past Surgical History: Total knee replacement (left) Family History non contributory due to age Social History He smoked for 21 years and quit in 1978. He has an occasional glass of wine. He does not do any other regular exercises because of his bad back. Current Medications Current Medications Aspirin (uTrail me'S Aspirin) 81 mg DAILYWBKFT PO ; Start 06/07/18 at 08:00 Aspirin (Fidencio Aspirin) 325 mg 1X ONCE PO ; Start 06/06/18 at 11:00; Stop at 11:02; Status DC Active Scripts Active Valium (Diazepam) 5 Mg Tablet 5 Mg PO TID 5 Days Please use one tablet every 8 hours as needed for muscle spasms. Do not drink alcohol or use other narcotics with this medication. Hydrocodone-Apap 5-325 (Hydrocodone Bit/Acetaminophen) 1 Each Tablet 1 Tab PO Q6H PRN 15 Days Reported Metoprolol Succinate ( Xl ) (Metoprolol Succinate) 50 Mg Tab.er.24h 1 Tab PO DAILYBFRLUN last dose at lunch next dose tomorrow lunch Uroxatral (Alfuzosin HCl) 10 Mg Tab.er.24h 10 Mg PO DAILYWSUP not given today may resume tonight Orazinc (Zinc Sulfate) 110 Mg Tablet 50 Mg PO DAILYWLUN last dose lunch next dose tomorrow lunch Ascorbic Acid 250 Mg Tablet 250 Mg PO DAILY last dose this morning next dose tomorrow Bumetanide 2 Mg Tablet 2 Mg PO DAILY last dose this morning next dose tomorrow next dose: 08/24 PM Proscar (Finasteride) 5 Mg Tablet 5 Mg PO DAILY last dose this morning next dose tomorrow next dose: 08/25 AM Multi Vitamin Daily (Multivitamin) 1 Each Tablet 1 Tab PO DAILY last dose this morning next dose tomorrow next dose: 08/25 AM Aspirin 81 Mg Tab.chew 81 Mg PO DAILY last dose this morning next dose tomorrow next dose: 08/25 AM Xarelto (Rivaroxaban) 20 Mg Tablet 20 Mg PO DAILY16 last dose yesterday next dose this evening next dose: 08/25 about 4 PM Zocor (Simvastatin) 40 Mg Tablet 40 Mg PO HS last dose last night next dose tonight next dose: 08/24 @ 9 PM Niaspan (Niacin) 500 Mg Tab.er.24h 500 Mg PO HS last dose last night next dose tonight Allergies: Coded Allergies: No Known Drug Allergies (Unverified , 01/04/14) Review of System as per HPI General: Alert, Oriented X3, Cooperative, No acute distress HEENT: Atraumatic, EOMI, Other (+HJR) Lungs: Other (decreased bilaterally without obvious crackles, no wheezing or rhonchi) Heart: Other (tachycardic, no gallops, clicks or rubs) Extremities: No cyanosis, Other (palpable pulses bilaterally, +2 edema with chronic venous stasis skin changes.) Neuro: Normal speech Psych/Mental Status: Mood NL VITALS Vital Signs Date Time Temp Pulse Resp B/P (MAP) Pulse Ox O2 Delivery O2 Flow Rate FiO2 06/06/18 12:05 97.9 91 20 160/90 (113) 95 Room Air Labs Laboratory Tests Test 06/06/18 11:00 White Blood Count 8.3 x10^3/uL (4.0-11.0) Red Blood Count 4.84 x10^6/uL (4.30-5.70) Hemoglobin 14.2 g/dL (13.0-17.5) Hematocrit 43.9 % (39.0-53.0) Mean Corpuscular Volume 91 fL (79-100) Mean Corpuscular Hemoglobin 29 pg (25-35) Mean Corpuscular Hemoglobin Concent 32 g/dL (31-37) Red Cell Distribution Width 14.5 % (11.5-14.5) Platelet Count 200 x10^3/uL (140-400) Neutrophils (%) (Auto) 76 % (31-73) Lymphocytes (%) (Auto) 16 % (24-48) Monocytes (%) (Auto) 7 % (0-9) Eosinophils (%) (Auto) 1 % (0-3) Basophils (%) (Auto) 1 % (0-3) Neutrophils # (Auto) 6.2 x10^3uL (1.8-7.7) Lymphocytes # (Auto) 1.3 x10^3/uL (1.0-4.8) Monocytes # (Auto) 0.6 x10^3/uL (0.0-1.1) Eosinophils # (Auto) 0.1 x10^3/uL (0.0-0.7) Basophils # (Auto) 0.1 x10^3/uL (0.0-0.2) Sodium Level 145 mmol/L (136-145) Potassium Level 4.1 mmol/L (3.5-5.1) Chloride Level 109 mmol/L (98-107) Carbon Dioxide Level 28 mmol/L (21-32) Anion Gap 8 (6-14) Blood Urea Nitrogen 13 mg/dL (8-26) Creatinine 1.1 mg/dL (0.7-1.3) Estimated GFR (Cockcroft-Gault) 64.1 BUN/Creatinine Ratio 12 (6-20) Glucose Level 109 mg/dL (70-99) Calcium Level 8.6 mg/dL (8.5-10.1) Total Bilirubin 0.4 mg/dL (0.2-1.0) Aspartate Amino Transf (AST/SGOT) 24 U/L (15-37) Alanine Aminotransferase (ALT/SGPT) 33 U/L (16-63) Alkaline Phosphatase 79 U/L (46-116) Troponin I Quantitative < 0.017 ng/mL (0-0.055) Total Protein 7.0 g/dL (6.4-8.2) Albumin 3.5 g/dL (3.4-5.0) Albumin/Globulin Ratio 1.0 (1.0-1.7) Images CXR - IMPRESSION: 1. Borderline cardiomegaly and aortic atherosclerosis. 2. Pleural/parenchymal scarring. 3. No acute infiltrate is evident. EKG - tachycardia with BBB, prob AFib/flutter Assessment/Plan 1. Chest pain - No acute ischemic changes on EKG. Check echo and serial cardiac enzymes. Aspirin, check lipids and add beta sruthi. Will need ischemic workup. If no CE elevation could have outpatient MPI. 2. tachycardia - unable to rule out atrial flutter. transfer to ICU and start on cardizem gtt. If rate slows and sinus tachy, ok to discontinue and continue current medications. 3. diastolic heart failure - no obvious venous congestion on CXR, +HJR, prob PHTN 4. CAD with prior PCI/Stenting and high RCA lesion on medical therapy. Currently cp free. serial enz and as above. If no significant abnormalities, suggest outpatient MPI. 5. hypertension - resume home medications 6. chronic venous insufficiency and recurrent DVT s/p IVC filter, on Xarelto 7. hyperlipidemia - check lipids. Request records, and continue supportive care CORETAT CARDOZA MD 06/06/182057: CONSULT Assessment/Plan Patient seen and examined. Agree with [facility]'s assessment and plan. 2D echo showed normal LV function Change cardizem to PO and plan outpatient ischemic evaluation Thank you for your consultation NIKHIL DUNNE APRN Jun 06, 2018 12:21 CORETTA CARDOZA MD Jun 06, 2018 20:58
[2018-06-06] MEDS ORDERED: dilTIAZem VIAL 125 MG in IV DEXTROSE 5% 100 ML IV PRN (13:00)
[2018-06-06] MEDS ORDERED: dilTIAZem VIAL 125 MG in IV DEXTROSE 5% 100 ML IV SCH (13:45)
--- NOTE | 2018-06-06 14:22 | CARD ---
MR#: [id number] Date of Study: 06/06/2018 Ordering Physician: NIKHIL DUNNE, Referring Physician: WILLOW CORNEJO Tech: Belinda Riley GREGORY APPROVED REPORT EXAM: Two-dimensional and M-mode echocardiogram with Doppler and color Doppler. Other Information Quality : Technically LimitedHR: 115bpm INDICATION Chest Pain 2D DIMENSIONS RVDd3.1 (2.9-3.5cm)Left Atrium(2D)4.5 (1.6-4.0cm) IVSd1.0 (0.7-1.1cm)Aortic Root(2D)3.7 (2.0-3.7cm) LVDd3.6 (3.9-5.9cm)LVOT Diameter2.4 (1.8-2.4cm) PWd1.3 (0.7-1.1cm)LVDs2.4 (2.5-4.0cm) FS (%) 31.6 %SV32.5 ml LVEF(%)60.5 (>50%) M-Mode DIMENSIONS Left Atrium(MM)4.75 (2.5-4.0cm)Aortic Root3.79 (2.2-3.7cm) Aortic Valve AoV Peak Jimbo.152.6cm/sAoV VTI26.4cm AO Peak GR.9.3mmHgLVOT Peak Jimbo.106.1cm/s LVOT VTI 15.67cmAO Mean GR.4mmHg MONIKA (VMAX)3.11fi9IQK (VTI)2.60cm2 Mitral Valve MV E Ajgomjyi724.6cm/sMV E Peak Gr.10mmHg MV DECEL [id number] A Qcximjqk612.6cm/s MV E Mean Gr.4mmHgE/A Ratio0.9 MV A [id number] Tricuspid Valve TR P. Pynefnlw111ft/sRAP VILALTDG2jmYv TR Peak Gr.66vaPjSWJT87nqCo LEFT VENTRICLE The left ventricle is normal size. There is borderline to mild concentric left ventricular hypertroph y. The left ventricular systolic function is normal and the ejection fraction is within normal range. The Ejection Fraction is 55-60%. There is grossly normal LV segmental wall motion. Transmitral Doppl er flow pattern is abnormal. RIGHT VENTRICLE The right ventricle is normal size. There is normal right ventricular wall thickness. The right ventr icular systolic function is normal. ATRIA The left atrium is mildly dilated. The right atrium is mildly dilated. The interatrial septum is inta ct with no evidence for an atrial septal defect or patent foramen ovale as noted on 2-D or Doppler im aging. AORTIC VALVE The aortic valve is trileaflet. The aortic valve is moderately calcified. Doppler and Color Flow reve aled no significant aortic regurgitation. There is no significant aortic valvular stenosis by doppler but the valve appears visually to be at least moderately stenotic. MITRAL VALVE The mitral valve is thickened but opens well. There is no evidence of mitral valve prolapse. There is no mitral valve stenosis. Doppler and Color-flow revealed trace to mild mitral regurgitation. TRICUSPID VALVE The tricuspid valve is normal in structure and function. Doppler and Color Flow revealed trace tricus pid regurgitation. The PA pressure was estimated at 36 mmHg. There is no tricuspid valve prolapse or vegetation. There is no tricuspid valve stenosis. PULMONIC VALVE The pulmonic valve is not well visualized. GREAT VESSELS The aortic root is normal in size. The ascending aorta is normal in size. The IVC is dilated. PERICARDIAL EFFUSION There is no evidence of significant pericardial effusion. Critical Notification Critical Value: No <Conclusion> The left ventricular systolic function is normal and the ejection fraction is within normal range. Th e Ejection Fraction is 55-60%. There is grossly normal LV segmental wall motion. There is no significant aortic valvular stenosis by doppler but the valve appears visually to be at l east moderately stenotic. Doppler and Color Flow revealed trace tricuspid regurgitation. The PA pressure was estimated at 36 mm Hg. Signed by : Dick Hassan, Electronically Approved : 06/06/2018 14:21:55
[2018-06-06 15:52] LABS: BACTERIA,URINE 0 /HPF (0-FEW); BILIRUBIN,URINE NEG (NEG); CLARITY,URINE CLEAR; COLOR,URINE YELLOW; GLUCOSE,URINE NEG (NEG); NITRITE,URINE NEG (NEG); RBC,URINE 0 /HPF (0-2); SQUAMOUS EPITHELIAL CELL,UR OCC /LPF; UROBILINOGEN,URINE 1 mg/dL (0.2 mg/dL); WBC,URINE OCC /HPF (0-4)
[2018-06-06] MEDS ORDERED: RIVAROXABAN 10 MG TABLET. PO SCH (17:00)
[2018-06-06] MEDS: LIDOCAINE (700MG/PATCH) PATCH. TD SCH (18:39)
--- NOTE | 2018-06-06 19:00 | RAD ---
Examination: CT lumbar spine without contrast HISTORY: History of low back pain, bladder cancer COMPARISON: None available TECHNIQUE: Axial CT images of the lumbar spine were performed without contrast and coronal sagittal reformats are performed Exposure: One or more of the following individualized dose reduction techniques were utilized for this examination: 1. Automated exposure control 2. Adjustment of the mA and/or kV according to patient size 3. Use of iterative reconstruction technique FINDINGS: The lumbar vertebral body heights are maintained. Moderate intervertebral disc height loss identified throughout the lumbar spine. There are mild disc bulges identified throughout the lumbar spine at L3-L4, L4-L5, L5-S1 vertebral level causing moderate spinal canal stenosis. Minimal right lung base atelectasis. Cystic structure identified in the right kidney with the largest measuring 3 cm difficult to characterize without contrast probably cysts. Punctate 3 mm calculus identified in the left kidney. IVC filter is identified. IMPRESSION: Multilevel moderate degenerative changes lumbar spine with moderate spinal canal stenosis identified at L3-L4 L4-L5, L5-S1 vertebral levels. Electronically signed by: Wan Casillas MD (06/06/2018 6:58 PM) [id number]
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
[2018-06-06] MEDS ORDERED: ATORVASTATIN CALCIUM 20 MG TABLET PO SCH (21:00)
[2018-06-06] MEDS ORDERED: PATCH REMOVAL. MC SCH (21:00)
[2018-06-06 22:06] LABS: HEMOGLOBIN A1C 6.3 % (4.8-5.6)
[2018-06-07] VITALS (8 sets, daily range): BP systolic 127–174; BP diastolic 77–97
[2018-06-07] MEDS: LIDOCAINE (700MG/PATCH) PATCH. TD SCH (06:58)
[2018-06-07 07:48] LABS: BASO % 0 % (0-3); EOS # 0.2 x10^3/uL (0.0-0.7); EOS % 2 % (0-3); HEMATOCRIT 46.6 % (39.0-53.0); HEMOGLOBIN 15.5 g/dL (13.0-17.5); LYMPH # 1.7 x10^3/uL (1.0-4.8); LYMPH % 18 % (24-48); MEAN CORPUSCULAR HEMOGLOBIN 30 pg (25-35); MEAN CORPUSCULAR HGB CONC 33 g/dL (31-37); MEAN CORPUSCULAR VOLUME 90 fL (79-100); MONO # 0.7 x10^3/uL (0.0-1.1); MONO % 8 % (0-9); NEUT # 6.6 x10^3uL (1.8-7.7); NEUT % 72 % (31-73); PLATELET COUNT 231 x10^3/uL (140-400); RED BLOOD COUNT 5.16 x10^6/uL (4.30-5.70); RED CELL DISTRIBUTION WIDTH 14.6 % (11.5-14.5); WHITE BLOOD COUNT 9.2 x10^3/uL (4.0-11.0)
[2018-06-07] MEDS ORDERED: ASPIRIN 81 MG TAB.CHEW PO SCH ×2 (08:00)
[2018-06-07 08:03] LABS: ALBUMIN 3.4 g/dL (3.4-5.0); ALBUMIN/GLOBULIN RATIO 0.8 (1.0-1.7); GFR 71.5; MAGNESIUM 2.1 mg/dL (1.8-2.4); POTASSIUM 3.9 mmol/L (3.5-5.1); TOTAL BILIRUBIN 0.6 mg/dL (0.2-1.0); TOTAL PROTEIN 7.9 g/dL (6.4-8.2)
[2018-06-07] MEDS ORDERED: LIDOCAINE (700MG/PATCH) PATCH. TD SCH (09:00)
[2018-06-07] MEDS ORDERED: BUMETANIDE 1 MG TABLET PO SCH (09:00)
[2018-06-07] MEDS ORDERED: METOPROLOL SUCC 24HR ER 50 MG TAB.ER.24H. PO SCH (11:30)
[2018-06-07] MEDS ORDERED: DILT120C85 PO (15:31)
--- NOTE | 2018-06-07 19:32 | DS ---
DATE OF DISCHARGE: 06/07/2018 HOSPITAL COURSE: The patient is an 83-year-old male patient who was admitted directly from his primary care physician's office with a complaint of chest pain. The patient is a poor historian. The patient stated that he has this back pain and shortness of breath that has been going on for the last 3 months. He reports orthopnea, bilateral lower extremity edema. Denied any cough, phlegm or hemoptysis. He is known to have myocardial infarction with PCI and stenting as well as high 95% right coronary artery lesion that was not amenable to PCI. He was admitted and was found in atrial fibrillation with rapid ventricular response. He had 3 sets of cardiac enzymes that all showed that the troponin to be less than 0.017. He was started on a Cardizem drip and his heart rate is well controlled at rest and on exertion and therefore, a decision was made to discharge him home to continue with Cardizem drip 120 mg once a day together with Toprol 50 mg once a day. PHYSICAL EXAMINATION: GENERAL: When I saw him this afternoon, he looked well and was clearly in no apparent respiratory distress. No pallor, jaundice, cyanosis, or thyromegaly. No jugular venous distension. No limb edema. VITAL SIGNS: His heart rate was 82, blood pressure 153/77, temperature was 97.6, respiratory rate 20, and oxygen saturation was 96%. HEAD, EYES, EARS, NOSE AND THROAT: Normocephalic, atraumatic. NECK: Supple. HEART: Showed normal first and second sounds. No gallop, rub or murmur. CHEST: Clear to auscultation. No crepitation or rhonchi. ABDOMEN: Distended, soft, nontender. NEUROLOGIC: He was awake, alert, responding appropriately. Cranial nerves intact. EXTREMITIES: He moves extremities without difficulty, ambulates without assistance or assistive devices. LABORATORY DATA: This morning showed a serum sodium 142, potassium 3.9, chloride 107, bicarbonate 25, anion gap of 10, BUN 10, creatinine 1, estimated GFR was 72 mL per minute, his glucose 115, calcium was 9, magnesium 2.1. Total bilirubin, AST, ALT, alkaline phosphatase were normal. Total protein was 7.9, albumin of 3.4. His white cell count was 9200, hemoglobin 15.5, hematocrit 46.6, MCV 90 and platelet count 231,000. He had 3 sets of cardiac enzymes that showed troponin to be less than 0.017. Serum triglycerides were 59, total cholesterol 147, LDL cholesterol was 93, VLDL was 11, and HDL cholesterol of 43 and the ratio was 3. DISCHARGE MEDICATIONS: He was discharged home to continue on Cardizem (diltiazem) CD 120 mg once a day, Uroxatral 10 mg once a day, ascorbic acid 250 mg once a day, aspirin 81 mg once a day, bumetanide 2 mg daily, diazepam 5 mg 3 times a day, finasteride for Proscar 5 mg once a day, hydrocodone/APAP 5/325 one tablet every 6 hours, metoprolol succinate 50 mg once a day, multivitamin 1 tablet once a day, niacin for Niaspan 500 mg at bedtime, Xarelto 20 mg once a day, simvastatin for Zocor 40 mg at bedtime, zinc sulfate 50 mg daily. FINAL DISCHARGE DIAGNOSES: Atypical chest pain, myocardial infarction ruled out. Atrial fibrillation with rapid ventricular response, rate controlled now with diltiazem and metoprolol. We will anticoagulate with Xarelto. Other medical problems include congestive heart failure which is clinically well compensated, hyperlipidemia, peripheral vascular disease, chronic venous insufficiency. WILLOW CORNEJO MD DR: MIKE/sera JOB#: [id number] / [id number]
--- NOTE | 2018-06-07 21:06 | PN ---
DATE: 06/07/2018 SUBJECTIVE: The patient is resting, slightly propped up in bed, in no apparent distress. He continued to complain of back pain, but denied any chest pain, shortness of breath, dizziness, lightheadedness, or vertigo. He continued to be in atrial fibrillation with rapid ventricular response. His heart rate continued to be very variable. His heart rate increases with exertion and sometimes ____ his heart rate goes up to 130-140. He was started on metoprolol 50 mg once a day. PHYSICAL EXAMINATION: GENERAL: When I saw him this morning, he was sitting slightly propped up comfortably in no apparent respiratory distress. No pallor, jaundice, cyanosis, or thyromegaly. No jugular venous distension. No limb edema. VITAL SIGNS: His heart rate was between 95-140, temperature was 97.9, respiratory rate 20, blood pressure ____ and oxygen saturation was 95%. HEAD, EYES, EARS, NOSE, AND THROAT: Showed normocephalic, atraumatic. NECK: Supple. HEART: Showed normal first and second heart sounds. No gallop, rub, or murmur. CHEST: Clear to auscultation. No crepitation or rhonchi. ABDOMEN: Distended, soft, nontender. NEUROLOGIC: He was awake, alert, responding appropriately. All cranial nerves intact. He moves extremities without difficulty. He ambulates without assistance or assistive devices. LABORATORY DATA: His intake and output were incompletely recorded. His white cell count was 9200, hemoglobin 15.5, hematocrit 47, MCV 90, and platelet count of 231,000. His chemistry showed serum sodium of 142, potassium 3.9, chloride 107, bicarbonate 25, anion gap of 10, BUN 10, creatinine 1, estimated GFR was 71 mL per minute. His glucose 115, calcium was 9, magnesium 2.1. Total bilirubin, AST, ALT, alkaline phosphatase were normal. Total protein was 7.9, albumin was 3.4. He had 3 sets of cardiac enzymes that were ruled out myocardial infarction. His serum triglycerides were 59, cholesterol 147, LDL cholesterol 93, VLDL was 11, HDL was 104, and cholesterol to HDL ratio was 3. ASSESSMENT: 1. Atrial fibrillation, rapid ventricular response, currently on Cardizem. He was on Cardizem drip. He is now on oral Cardizem as well as metoprolol. His heart rate still suboptimally controlled. 2. Hypertension, reasonably controlled. Other medical problems include, 1. Hyperlipidemia. 2. Peripheral vascular disease. 3. Chronic venous insufficiency. He has also history of pulmonary hypertension, type 2 diabetes mellitus, benign prostatic hypertrophy, history of DVT for which he is on Xarelto. PLAN: To continue to monitor his heart rate and might have to adjust metoprolol and Cardizem higher; however, if his heart rate will be controlled, he might be able to go home today. WILLOW CORNEJO MD DR: MIKE/sera JOB#: [id number] / [id number]
== END 2018-06-07 16:13 | disposition home or self-care (01) | DRG 313 ==
LOC: 1 SOUTH 09:30 → ICU 13:29
PROVIDERS: ADMIT Internal Medicine; ATTEND Internal Medicine
DX: R07.89 Other chest pain (principal); I50.30 Unspecified diastolic (congestive) heart failure; I48.91 Unspecified atrial fibrillation; E11.51 Type 2 diabetes mellitus with diabetic peripheral angiopathy without gangrene; E78.5 Hyperlipidemia, unspecified; I07.1 Rheumatic tricuspid insufficiency; I11.0 Hypertensive heart disease with heart failure; I25.10 Atherosclerotic heart disease of native coronary artery without angina pectoris; I27.20 Pulmonary hypertension, unspecified; I25.2 Old myocardial infarction; I87.2 Venous insufficiency (chronic) (peripheral); J44.9 Chronic obstructive pulmonary disease, unspecified; M15.9 Polyosteoarthritis, unspecified; N40.0 Benign prostatic hyperplasia without lower urinary tract symptoms; Z79.01 Long term (current) use of anticoagulants; Z85.51 Personal history of malignant neoplasm of bladder; Z86.711 Personal history of pulmonary embolism; Z86.718 Personal history of other venous thrombosis and embolism; Z87.891 Personal history of nicotine dependence; Z95.828 Presence of other vascular implants and grafts; Z96.652 Presence of left artificial knee joint; Z98.61 Coronary angioplasty status; G89.29 Other chronic pain
CPT/HCPCS: 36415; 71045; 71046; 72131; 80047; 80053; 80061; 80076; 81001; 83036; 83735; 84484; 85025; 85610; 87641; 93005; 93306; J3490

== ENCOUNTER 2019-01-23 09:05 | Inpatient (IN) | payer MEDICARE, OTHER ==
[~2019-01-23] VITALS: Ht 180.3 cm; Wt 115.7 kg
[~2019-01-23 09:05] MED LIST changes: -ACET-1574 PO; +ACET-1874 PO; -BUME2TAB PO; +BUME2TAB3 PO; +DILT120C99 PO; -ZINC220T PO; +ZINC220T3 PO
[2019-01-23] MEDS ORDERED: NITROGLYCERIN SUBLINGUAL 0.4 MG BOTTLE OF 25. SL PRN (09:15)
--- NOTE | 2019-01-23 09:22 | PHYS DOC ---
Past History Past Medical History: A-Fib, High Cholesterol, Heart Disease, Hypertension, Pneumonia Past Surgical History: Cholecystectomy, Other Additional Past Surgical Histo: hernia repair, Smoking: Non-smoker Alcohol Use: Rarely Drug Use: None Adult General Chief Complaint Chief Complaint: DIZZY/LIGHT HEADED HPI HPI Patient is a 83-year-old male presenting with shortness of breath and lightheadedness dizziness chest tightness. He says he has chest tightness mostly when he takes a deep breath it started about an hour and a half ago when he woke up he feels dizzy and lightheaded he just feels short of breath it's hard to get a deep breath. He feels nauseous but he cannot throw up due to her previous surgery back in the 1970s. He denies a cardiac history however brief chart review does show that he did have a cardiac catheter with stent From prior cardiac consultation: [facility] show prior IA with PCI/stenting as well as a high 95% RCA lesion that was not amenable to PCI. Patient was admitted here in June 2018 and an echocardiogram serial troponins that were negative was in some tachycardic rhythm without to be atrial flutter improved on medication was discharged home. Medications include Xarelto aspirin Zocor Review of Systems Review of Systems Constitutional: Denies fever or chills [] Eyes: Denies change in visual acuity, redness, or eye pain [] HENT: Denies nasal congestion or sore throat [] Respiratory: Denies cough or shortness of breath [] Cardiovascular: No additional information not addressed in HPI [] GI: Denies abdominal pain, nausea, vomiting, bloody stools or diarrhea [] : Denies dysuria or hematuria [] Musculoskeletal: Denies back pain or joint pain [] Integument: Denies rash or skin lesions [] Neurologic: Denies headache, focal weakness or sensory changes [] Endocrine: Denies polyuria or polydipsia [] All other systems were reviewed and found to be within normal limits, except as documented in this note. Current Medications Current Medications Current Medications Medications (Trade) Dose Ordered Sig/Ever Start Time Stop Time Status Last Admin Dose Admin Aspirin (Children'S Aspirin) 324 mg 1X ONCE 01/23/19 09:15 01/23/19 09:16 UNV Nitroglycerin (Nitrostat) 0.4 mg PRN Q5MIN PRN 01/23/19 09:15 UNV Allergies Allergies Allergies Coded Allergies Type Severity Reaction Last Updated Verified No Known Drug Allergies 01/04/14 No Physical Exam Physical Exam Constitutional: Well developed, well nourished, mild distress, non-toxic appearance. [] HENT: Normocephalic, atraumatic, bilateral external ears normal, oropharynx moist, no oral exudates, nose normal. [] Eyes: PERRLA, EOMI, conjunctiva normal, no discharge. [] Neck: Normal range of motion, no tenderness, supple, no stridor. [] Cardiovascular:tachy 2/6 murmur Lungs & Thorax: scattered crackles no wheezing Abdomen: Bowel sounds normal, soft, no tenderness, no masses, no pulsatile masses. [] Skin diaphoretic warm to touch Extremities: No tenderness, no cyanosis, no clubbing, ROM intact, woody edema Neurologic: Alert and oriented X 3, normal motor function, normal sensory function, no focal deficits noted. [] Psychologic: Affect normal, judgement normal, mood normal. [] Current Patient Data Vital Signs mperature (Fahrenheit): * 97.8 degrees F (97.6-99.5) Patient Temperature * 97.8 degrees F (97.5-99.5) Temperature Source * Oral Blood Pressure Systolic * 138 mm Hg (100-140) Blood Pressure Diastolic * 73 mm Hg (60-100) Blood Pressure Mean * 94 mm Hg Blood Pressure Location * Right Arm Blood Pressure Source * Automatic Cuff Pulse Rate * 123 beats per minute (60-90) H Pulse Assessment Method * Monitor Respiratory Rate * 20 breaths per minute (12-24) Oxygen Delivery Method * Room Air Bedside Pulse Oximetry * 92 % Treatment Prior to Arrival * No Complaint of Pain * No Pain Assessment Label hr 100 on my reassessmet EKG EKG []Sinus tach right bundle-branch block rate 122 differential would include a flutter but it's probably more likely to be sinus tachycardia. No STEMI seen Radiology/Procedures Radiology/Procedures [] Impressions: Findings: Upright frontal view of chest was obtained. Heart size is mildly enlarged in appearance but this is in part artifactual due to the technique and positioning. Pulmonary vasculature is congested. Interstitial thickening or edema is again seen. There is no pneumothorax. Possibility of small right and left pleural effusion. No acute bone abnormality. IMPRESSION: Mild congestive heart failure. Possible small effusions. Electronically signed by: Jarred Diaz MD (01/23/2019 9:50 AM) [facility] DICTATED AND SIGNED BY: JARRED DIAZ MD DATE: 01/23/19 0950 CC: TITO CASTRO MD; EDVIN SOLO ~ Course & Med Decision Making Course & Med Decision Making Pertinent Labs and Imaging studies reviewed. (See chart for details) [][facility] show prior IA with PCI/stenting as well as a high 95% RCA lesion that was not amenable to PCI, afib rvr on xarelto, htn, hyperlipidemia p/w chest itghtness sob sat 92 on ra hr 120's. after obsrvation hr down to 100, sat 96 on 2 liters patient looks a lot better. consider pe, acs. no stemi on ekg treated meidcally with improvement in er.wiped nitropaste off because bp down to 90's ordered lasix. diltiazem not given due to heart rate improving with observation. d/w lidia around 1115 am for admit for chf, with pending ct read to r/o pe. Dragon Disclaimer Dragon Disclaimer This electronic medical record was generated, in whole or in part, using a voice recognition dictation system. Departure Departure: Impression: Primary Impression: CHF (congestive heart failure) Disposition: ADMITTED INPATIENT Admitting Physician: Juvencio Dunbar Condition: STABLE Referrals: EDVIN SOLO (PCP) TITO CASTRO MD Jan 23, 2019 09:22
[2019-01-23] MEDS ORDERED: dilTIAZem 25 MG/5 ML VIAL IVP ONE ×2 (09:23→09:40)
[2019-01-23] MEDS ORDERED: ONDANSETRON PF 4 MG/2 ML VIAL. IVP ONE (09:30)
[2019-01-23] MEDS ORDERED: NITROGLYCERIN OINT 1 GM PACKET. TP ONE (09:30)
[2019-01-23] MEDS ORDERED: ASPIRIN 81 MG TAB.CHEW PO ONE (09:30)
[2019-01-23 09:53] LABS: BASO # 0.1 x10^3/uL (0.0-0.2); BASO % 1 % (0-3); EOS # 0.1 x10^3/uL (0.0-0.7); EOS % 1 % (0-3); HEMOGLOBIN 14.3 g/dL (13.0-17.5); LYMPH # 0.7 x10^3/uL (1.0-4.8); LYMPH % 7 % (24-48); MEAN CORPUSCULAR HEMOGLOBIN 29 pg (25-35); MEAN CORPUSCULAR HGB CONC 32 g/dL (31-37); MEAN CORPUSCULAR VOLUME 93 fL (79-100); MONO # 0.6 x10^3/uL (0.0-1.1); MONO % 5 % (0-9); NEUT % 86 % (31-73); PLATELET COUNT 217 x10^3/uL (140-400); RED BLOOD COUNT 4.85 x10^6/uL (4.30-5.70); RED CELL DISTRIBUTION WIDTH 15.3 % (11.5-14.5); WHITE BLOOD COUNT 10.4 x10^3/uL (4.0-11.0)
--- NOTE | 2019-01-23 09:53 | RAD ---
CHEST AP ONLY Clinical Indication: Chest pain Comparison: None. Findings: Upright frontal view of chest was obtained. Heart size is mildly enlarged in appearance but this is in part artifactual due to the technique and positioning. Pulmonary vasculature is congested. Interstitial thickening or edema is again seen. There is no pneumothorax. Possibility of small right and left pleural effusion. No acute bone abnormality. IMPRESSION: Mild congestive heart failure. Possible small effusions. Electronically signed by: Jarred Mojica MD (01/23/2019 9:50 AM) [id number]
[2019-01-23 10:16] LABS: ALBUMIN 3.4 g/dL (3.4-5.0); ALBUMIN/GLOBULIN RATIO 0.8 (1.0-1.7); CREATININE 1.3 mg/dL (0.7-1.3); GFR 52.9; POTASSIUM 4.2 mmol/L (3.5-5.1); TOTAL BILIRUBIN 0.5 mg/dL (0.2-1.0); TOTAL PROTEIN 7.6 g/dL (6.4-8.2)
[2019-01-23] MEDS ORDERED: IOHEXOL 350 MG/ML 100 ML VIAL. IV ONE (10:45)
[2019-01-23] MEDS ORDERED: FUROSEMIDE 40 MG/4 ML VIAL IVP ONE ×2 (11:30→16:15)
--- NOTE | 2019-01-23 12:08 | RAD ---
RS Compliance Statement: One or more of the following individualized dose reduction techniques were utilized for this examination: 1. Automated exposure control 2. Adjustment of the mA and/or kV according to patient size 3. Use of iterative reconstruction technique CT angiography chest with contrast 01/23/2019 10:33 AM INDICATION: Hypoxia, tachycardia COMPARISON: CT chest 07/16/2015 TECHNIQUE: Axial CT images of the chest were obtained after the intravenous administration of nonionic contrast. Coronal and sagittal reformats are provided. Maximum intensity projection images of the thoracic vasculature are provided. FINDINGS: The thyroid gland is normal in appearance. There is a 14 mm precarinal lymph node (series 5, image 57). Heart size is enlarged. Three-vessel coronary artery vascular opacifications are identified. There is calcification along the pericardium. Mild to moderate calcified atheromatous plaque involving the thoracic aorta. No significant pericardial effusion. Thoracic aorta is normal in course and caliber. There is adequate opacification of the pulmonary arterial system. There there are no filling defects within the pulmonary arterial system to suggest acute or chronic pulmonary embolus. There are no suspicious solid noncalcified pulmonary nodules. There are trace bilateral pleural effusions. There is adjacent compressive atelectasis versus infiltrate. Mild plantar vessel congestion. No pneumothorax. There is a 4 cm simple cyst involving the superior pole left kidney. Cholecystectomy changes are present. There is moderate fatty atrophy of the pancreas. Remote healed right lateral rib fractures are noted. No suspicious osseous lesions are visualized. IMPRESSION: 1. There is no evidence for acute or chronic pulmonary embolism. 2. Cardiomegaly with left ventricular hypertrophy. Calcified pericardium could be associated with a restrictive pericarditis. 3. Trace bilateral pleural effusions adjacent compressive atelectasis. There is mild pulmonary vascular congestion as may be seen with congestive heart failure. 4. Simple appearing severe pole left renal cyst measuring 4 cm. 5. 14 mm precarinal lymph node may be reactive. 3 month follow-up chest CT may be of benefit to ensure resolution. Electronically signed by: Suzi Cardona MD (01/23/2019 12:04 PM) [id number]
[2019-01-23 13:11] VITALS: BP 136/74
--- NOTE | 2019-01-23 16:15 | RAD ---
EXAM: Bilateral lower extremity venous Doppler sonogram. HISTORY: Positive Homans sign. Pain and swelling. TECHNIQUE: Quiñones scale and color Doppler sonographic evaluation of the bilateral lower extremity veins with spectral waveform analysis was performed. FINDINGS: There is normal color flow, normal compressibility and there are normal spectral waveforms in the common femoral, superficial femoral, popliteal, posterior tibial and greater saphenous veins. IMPRESSION: No Doppler evidence of lower extremity deep venous thrombosis. Electronically signed by: Nydia Murphy MD (01/23/2019 4:12 PM) [place] [id number]
[2019-01-23] MEDS ORDERED: HYDROcodone/APAP 5/325MG 1 TAB TABLET PO PRN (16:45)
[2019-01-23] MEDS ORDERED: RIVAROXABAN 10 MG TABLET. PO SCH (17:00)
[2019-01-23] MEDS: METOPROLOL SUCC 24HR ER 50 MG TAB.ER.24H. PO SCH (17:30)
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
[2019-01-23 19:57] VITALS: BP 130/85
[2019-01-23] MEDS ORDERED: ATORVASTATIN CALCIUM 20 MG TABLET PO SCH (21:00)
[2019-01-23] MEDS: diazePAM 5 MG TABLET PO SCH ×2 (21:00→21:15)
[2019-01-23] MEDS ORDERED: NIACIN ER 500 MG TABLET.ER PO SCH (21:00)
[2019-01-23 22:28] VITALS: BP 121/76
[2019-01-24 04:10] VITALS: BP 163/80
[2019-01-24] MEDS ORDERED: ONDANSETRON PF 4 MG/2 ML VIAL. IVP PRN (04:15)
[2019-01-24 06:15] VITALS: BP 99/57
[2019-01-24 07:47] LABS: BASO % 1 % (0-3); EOS # 0.2 x10^3/uL (0.0-0.7); EOS % 2 % (0-3); HEMATOCRIT 42.8 % (39.0-53.0); HEMOGLOBIN 13.9 g/dL (13.0-17.5); LYMPH % 12 % (24-48); MEAN CORPUSCULAR HEMOGLOBIN 30 pg (25-35); MEAN CORPUSCULAR HGB CONC 32 g/dL (31-37); MEAN CORPUSCULAR VOLUME 92 fL (79-100); MONO # 0.8 x10^3/uL (0.0-1.1); MONO % 10 % (0-9); NEUT # 6.5 x10^3uL (1.8-7.7); NEUT % 76 % (31-73); PLATELET COUNT 192 x10^3/uL (140-400); RED BLOOD COUNT 4.66 x10^6/uL (4.30-5.70); RED CELL DISTRIBUTION WIDTH 15.1 % (11.5-14.5); WHITE BLOOD COUNT 8.6 x10^3/uL (4.0-11.0)
[2019-01-24 07:59] LABS: ALBUMIN 3.1 g/dL (3.4-5.0); ALBUMIN/GLOBULIN RATIO 0.8 (1.0-1.7); CALCIUM 8.6 mg/dL (8.5-10.1); CREATININE 1.2 mg/dL (0.7-1.3); POTASSIUM 3.9 mmol/L (3.5-5.1); TOTAL BILIRUBIN 0.5 mg/dL (0.2-1.0); TOTAL PROTEIN 7.2 g/dL (6.4-8.2)
[2019-01-24] MEDS ORDERED: PRENATAL MULTIVITAMIN TABLET. PO SCH (09:00)
[2019-01-24] MEDS ORDERED: ASPIRIN 81 MG TAB.CHEW PO SCH (09:00)
[2019-01-24] MEDS ORDERED: ZINC SULFATE 220 MG CAPSULE. PO SCH (09:00)
[2019-01-24] MEDS ORDERED: ASCORBIC ACID 500 MG TABLET PO SCH (09:00)
[2019-01-24] MEDS ORDERED: FINASTERIDE 5 MG TABLET PO SCH (09:00)
[2019-01-24] MEDS: diazePAM 5 MG TABLET PO SCH (09:37)
[2019-01-24 10:59] VITALS: BP 102/66
[2019-01-24] MEDS: METOPROLOL SUCC 24HR ER 50 MG TAB.ER.24H. PO SCH (13:39)
--- NOTE | 2019-01-24 15:04 | DS ---
DATE OF DISCHARGE: 01/23/2019 HOSPITAL COURSE: The patient is an 83-year-old male patient who was admitted with increasing shortness of breath, lightheadedness, dizziness, chest tightness. He was extensively evaluated. Has had 2 sets of cardiac enzymes that ruled out myocardial infarction. He was treated with IV Lasix and we did resume all his medication and did actually very well. He was able to ambulate without assistance or assistive devices, maintaining his oxygen saturation at 95% on room air and has remained stable. A decision was made to discharge him home to continue on all his medication to follow with his primary care physician. PHYSICAL EXAMINATION: GENERAL: When I examined him today, he was sitting at the edge of the bed comfortably in no apparent distress, slightly pale. No jaundice, cyanosis or thyromegaly. No jugular venous distention. No limb edema. VITAL SIGNS: Her heart rate was 83, blood pressure was 102/66, temperature was 98, respiratory rate was 20, and oxygen saturation was 96% on 2 liters of oxygen. HEAD, EYES, EARS, NOSE AND THROAT: Showed normocephalic, atraumatic. NECK: Supple. HEART: Showed normal first and second heart sounds. No gallop or murmur. CHEST: Clear to auscultation. No crepitation or rhonchi. ABDOMEN: Distended, soft, nontender. NEUROLOGIC: He was awake, alert, responding appropriately. All cranial nerves intact. EXTREMITIES: He moves extremities without difficulty, ambulates without assistance or assistive devices. His intake and output are incompletely recorded. LABORATORY DATA: His lab work this morning showed a serum sodium 142, potassium 3.9, chloride was 104, bicarbonate 29, anion gap of 9, BUN 20, creatinine 1.2, estimated GFR was 58 mL per minute, his glucose 109, calcium was 8.6. Total bilirubin, AST, ALT, alkaline phosphatase were normal. Total protein was 7.2, albumin 3.1. His white cell count was 8600, hemoglobin 14, hematocrit 42, MCV 92, and platelet count of 193,000. His prothrombin time and INR are within normal range. DISCHARGE MEDICATIONS: He was discharged home to continue on alfuzosin 10 mg once a day, ascorbic acid 250 mg once a day, aspirin 81 mg once a day, bumetanide 2 mg daily, diazepam 5 mg 3 times a day, diltiazem hydrochloride 120 mg once a day, finasteride for Proscar 5 mg daily, hydrocodone/APAP 5/325 one tablet every 6 hours, metoprolol succinate 50 mg once a day, multivitamin 1 tablet once a day, niacin for Niaspan 500 mg at bedtime, rivaroxaban for Xarelto 20 mg p.o. daily, simvastatin 40 mg at bedtime and zinc sulfate 50 mg once a day. FINAL DISCHARGE DIAGNOSES: 1. Acute on chronic diastolic congestive heart failure, much improved. 2. Hyperlipidemia. 3. Peripheral vascular disease. 4. Chronic venous insufficiency and chronic venous ulcer of the left ankle. 5. History of bladder cancer. 6. History of pulmonary hypertension. 7. Type 2 diabetes. 8. Tricuspid regurgitation. 9. Chronic low back pain. 10. Benign prostatic hypertrophy. 11. Bilateral lower extremity DVT. He is also known to have generalized osteoarthritis. WILLOW CORNEJO MD DR: MIKE/sera JOB#: [id number] / [id number]
[2019-01-24 15:20] VITALS: BP 113/68
--- NOTE | 2019-01-24 15:48 | PDOC ---
PROVIDER NOTE PROVIDER NOTE PROVIDER NOTE Reason for consultation: Possible heart failure Consulting physician: Dr. Dunbar History of present illness: 83-year-old man with past medical history of coronary disease and prior history of DVT on anticoagulation comes to the hospital with progressive shortness of breath. He was recently seen in August 2018 in the office where evaluation including a stress test and echocardiogram did not reveal any significant pathology. He had very minimal episodes of atrial fibrillation. In speaking with the patient today his history is a bit unclear but he just reports feeling fatigued. He denies any associated angina. No syncope or palpitations. There are several family members in the room who unfortunately do not have any specific idea or information regarding his symptoms Past medical history 1. Atrial fibrillation, very low burden on recent event monitoring in 2019 2. Hypertension 3. Prior history of DVT on anticoagulation 4. Coronary artery disease 5. Morbid obesity 6. Chronic venous insufficiency Social history no alcohol, tobacco or illicit drug use Allergies no known drug allergies Current cardiac medications: Metoprolol 50 Marino grams XL daily, diltiazem 120 mg daily, Niaspan extended release 500 mg daily, Xarelto 20mg daily, zocor 40mg daily, Bumex 2 mg daily Review systems is negative unless otherwise mentioned above in history of present illness Physical examination The patient appeared well nourished and normally developed. Head exam is unremarkable. No scleral icterus or corneal arcus noted. Neck is without jugular venous distension, thyromegaly, or carotid bruits. Carotid upstrokes are brisk bilaterally. Lungs are clear to auscultation and percussion. Cardiac exam reveals the PMI to be normally sized and situated. Rhythm is regular. First and second heart sounds normal. No murmurs, rubs or gallops. Abdominal exam reveals normal bowel sounds, no masses, no organomegaly and no aortic enlargement. Extremities are nonedematous and both femoral and pedal pulses are normal. There are chronic venous stasis changes noted Msk: No traumua Neuro: No focal deficits Diagnostic studies reviewed: CT scan of the chest, recent myocardial perfusion study, echocardiogram reviewed Creatinine, hemoglobin and platelets are within normal limits EKG is unremarkable Impression: 1. Dyspnea, differential diagnosis is broad but currently does not appear to have any acute ischemic insult especially given his recent stress testing Possibly these include mild diastolic heart failure versus intrinsic lung disease although his O2 sat was unremarkable upon ambulation His CT scan of the chest does not reveal any significant parenchymal lung disease. Continue current medical therapy with aggressive blood pressure control and okay for discharge and will follow-up with him in the office for further evaluation as needed Thank you for this consultation. Discussed with nursing staff and referring physician. RANDY SARMIENTO MD Jan 24, 2019 15:48
--- NOTE | 2019-01-26 14:40 | EKG ---
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
== END 2019-01-24 15:00 | disposition home or self-care (01) | DRG 291 ==
LOC: ER 09:05 → 1 SOUTH 12:07
PROVIDERS: ADMIT Internal Medicine; ATTEND Internal Medicine
DX: I11.0 Hypertensive heart disease with heart failure (principal); J96.01 Acute respiratory failure with hypoxia; L97.329 Non-pressure chronic ulcer of left ankle with unspecified severity; I82.403 Acute embolism and thrombosis of unspecified deep veins of lower extremity, bilateral; E11.51 Type 2 diabetes mellitus with diabetic peripheral angiopathy without gangrene; I50.33 Acute on chronic diastolic (congestive) heart failure; E78.00 Pure hypercholesterolemia, unspecified; E78.5 Hyperlipidemia, unspecified; G89.29 Other chronic pain; I25.10 Atherosclerotic heart disease of native coronary artery without angina pectoris; I25.2 Old myocardial infarction; I48.91 Unspecified atrial fibrillation; M15.9 Polyosteoarthritis, unspecified; E66.01 Morbid (severe) obesity due to excess calories; Z86.718 Personal history of other venous thrombosis and embolism; Z87.891 Personal history of nicotine dependence; N40.0 Benign prostatic hyperplasia without lower urinary tract symptoms; Z79.01 Long term (current) use of anticoagulants; Z82.49 Family history of ischemic heart disease and other diseases of the circulatory system; Z82.5 Family history of asthma and other chronic lower respiratory diseases; Z85.51 Personal history of malignant neoplasm of bladder; Z95.5 Presence of coronary angioplasty implant and graft; Z90.49 Acquired absence of other specified parts of digestive tract
CPT/HCPCS: 36415; 71045; 71275; 80053; 82947; 83605; 83690; 83880; 84484; 85025; 85610; 87040; 93005; 93970; 96374; J1940; J2405; J3490; Q9967; 99285-25

== ENCOUNTER 2019-07-05 16:34 | Emergency (ER) | payer MEDICARE, OTHER ==
[~2019-07-05] VITALS: Ht 182.9 cm; Wt 114.3 kg
[2019-07-05 16:52] VITALS: BP 138/91
--- NOTE | 2019-07-05 17:03 | EKG ---
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
--- NOTE | 2019-07-05 17:11 | PHYS DOC ---
Past History Past Medical History: Dementia, Heart Disease, Hypertension Past Medical History Limited secondary to dementia Past Surgical History: Cholecystectomy, Other Additional Past Surgical Histo: hernia repair, Past Surgical History Limited secondary to dementia Smoking: Non-smoker Alcohol Use: None Drug Use: None Social History Limited secondary to dementia General Adult EDM: Chief Complaint: MECHANICAL FALL HPI: HPI: 84-year-old male with past medical history of dementia presents via EMS with report of unwitnessed fall at home. Patient does use Xarelto blood thinner. Per EMS, family was concern patient was acting "cloudy". Patient denies complaint. EMS placed patient in C-collar prior to arrival. EMS reports blood sugar 133. History of present illness limited secondary to dementia. Review of Systems: Review of Systems: Constitutional: Denies fever or chills Cardiovascular: Denies chest pain or palpitations GI: Denies vomiting Neurologic: Reports altered mental status Review of systems limited secondary to dementia Allergies: Allergies: Allergies Coded Allergies Type Severity Reaction Last Updated Verified No Known Drug Allergies 01/23/19 No Physical Exam: PE: Constitutional: Well developed, well nourished, no acute distress, non-toxic appearance, poor hygiene HENT: Normocephalic, atraumatic Eyes: PERRL, EOMI, conjunctiva normal, no discharge, no nystagmus Neck: C-collar in place, supple Cardiovascular: Heart rate normal, regular rhythm Lungs & Thorax: Bilateral breath sounds clear to auscultation, no wheezing/rales/rhonchi Abdomen: Soft, no tenderness; pelvis stable and nontender Skin: Warm, dry, no erythema, chronic bilateral lower extremity status dermatitis Back: No tenderness, no CVA tenderness Extremities: No tenderness, ROM intact, 2+ bilateral lower extremity edema Neurologic: Alert and oriented X 3, intermittently confused, normal motor function, normal sensory function, no focal deficits noted Psychologic: Affect normal, judgment abnormal Current Patient Data: Vital Signs: Vital Signs Date Time Temp Pulse Resp B/P (MAP) Pulse Ox O2 Delivery O2 Flow Rate FiO2 07/05/19 16:52 97.6 96 15 138/91 (107) 93 Room Air EKG: EKG: @1702 Afib at 87bpm, NO ST elevation, t wave inversions in III and aVF, QRS 96ms, QT/QTc 410/494ms Radiology/Procedures: Radiology/Procedures: PROCEDURE: CT HEAD AND CERVICAL SPINE WO & CT CHEST WO CT head and cervical spine without contrast 07/05/2019. Reason for exam: Pain after falling. On blood thinners. Noncontrast images were performed. Sagittal and coronal reconstructions of the cervical spine were obtained. Exposure: One or more of the following individualized dose reduction techniques were utilized for this examination: 1. Automated exposure control 2. Adjustment of the mA and/or kV according to patient size 3. Use of iterative reconstruction technique. Comparison is made with a study of 06/19/2012. CT head findings: There is no apparent intracranial hemorrhage or abnormal extra-axial fluid collection. No area of abnormal density has developed. The ventricles and basilar cisterns are normally positioned. Bone windows show no apparent fracture of the skull or abnormal sinus or mastoid opacification. IMPRESSION: No acute intracranial abnormality. CT cervical spine: Alignment is normal. There is no loss of vertebral body height or prevertebral soft tissue swelling. No fracture line is seen in the cervical levels. There is suggestion of slight compression of the superior endplate of T2. This appears similar to the prior exam and is favored to be chronic. Intervertebral discs are fairly well maintained. There are prominent anterior osteophytes especially at C6-7. No destructive process is seen. Evaluation of the soft tissue components of the canal is limited without intrathecal contrast. No destructive process is seen. IMPRESSION: Degenerative changes. No identified acute abnormality. CT CHEST: Reason for exam: Pain after falling. On blood thinners. Possible contusion. Noncontrast images were performed. Sagittal and coronal reconstructions were obtained. Exposure: One or more of the following individualized dose reduction techniques were utilized for this examination: 1. Automated exposure control 2. Adjustment of the mA and/or kV according to patient size 3. Use of iterative reconstruction technique. Comparison is made with a study of 07/16/2015. FINDINGS: There is some chronic pleural thickening and a small amount of pleural fluid posteriorly on each side. No significant pulmonary parenchymal abnormality is seen. There is no evidence of lung contusion or pneumothorax. The central airways appear normal. There is no apparent mediastinal fluid or blood. There is some pericardial calcification. Images through the upper abdomen show a vena cava filter in place. No acute abnormality is seen. Bone windows some chronic appearing right rib deformities. No acute abnormality is seen. IMPRESSION: No evidence of significant injury to the chest. Electronically signed by: Carlos Schroeder Jr., MD (07/05/2019 5:49 PM) [id number] Course & Med Decision Making: Course & Med Decision Making Pertinent Labs and Imaging studies reviewed. (See chart for details) Patient with past medical history of dementia presents with report of unwitnessed fall at home. Patient neurologically intact but intermittently confused. No significant signs of trauma appreciated. Patient is currently on Xarelto. EMS transported patient in c-collar. EKG stable. Labs obtained and posted to chart. Creat 1.6. Elevated in comparison to prior per [employer] (1.2 on 01/24/19). UA without infection. Ammonia and lactic acid WNL. CT head/cervical spine/chest without acute process. C-collar cleared. Patient stable for discharge with outpatient follow-up with PCP. Discussed findings and plan with patient and family, who acknowledge understanding and agreement. Yessenia Disclaimer: Yessenia Disclaimer: This electronic medical record was generated, in whole or in part, using a voice recognition dictation system. Departure Departure: Impression: Primary Impression: Fall Qualified Codes: W19.XXXA - Unspecified fall, initial encounter Additional Impressions: Dementia Qualified Codes: F03.90 - Unspecified dementia without behavioral disturbance Acute renal insufficiency Disposition: HOME, SELF-CARE Condition: STABLE Referrals: EDVIN SOLO (PCP) Patient Instructions: Chronic Renal Insufficiency, Dementia, [id number], Fall Prevention and Home Safety, [id number] JAYLEN MATA DO July 05, 2019 17:11
[2019-07-05 17:14] LABS: ANION GAP 12 (6-14); BLOOD UREA NITROGEN 23 mg/dL (8-26); BUN/CREATININE RATIO 14 (6-20); CALCIUM 8.7 mg/dL (8.5-10.1); CARBON DIOXIDE 28 mmol/L (21-32); CHLORIDE 99 mmol/L (98-107); CREATININE 1.6 mg/dL (0.7-1.3); GFR 41.5; GLUCOSE 118 mg/dL (70-99); POTASSIUM 3.8 mmol/L (3.5-5.1); SODIUM 139 mmol/L (136-145)
[2019-07-05 17:15] LABS: BASO # 0.1 x10^3/uL (0.0-0.2); BASO % 1 % (0-3); EOS # 0.2 x10^3/uL (0.0-0.7); EOS % 2 % (0-3); HEMATOCRIT 46.1 % (39.0-53.0); HEMOGLOBIN 15.2 g/dL (13.0-17.5); LYMPH # 2.1 x10^3/uL (1.0-4.8); LYMPH % 21 % (24-48); MEAN CORPUSCULAR HEMOGLOBIN 30 pg (25-35); MEAN CORPUSCULAR HGB CONC 33 g/dL (31-37); MEAN CORPUSCULAR VOLUME 92 fL (79-100); MONO # 1.2 x10^3/uL (0.0-1.1); MONO % 12 % (0-9); NEUT # 6.6 x10^3uL (1.8-7.7); NEUT % 65 % (31-73); PLATELET COUNT 236 x10^3/uL (140-400); RED BLOOD COUNT 5.01 x10^6/uL (4.30-5.70); RED CELL DISTRIBUTION WIDTH 14.4 % (11.5-14.5); WHITE BLOOD COUNT 10.2 x10^3/uL (4.0-11.0)
[2019-07-05 17:30] LABS: ALBUMIN 3.4 g/dL (3.4-5.0); ALBUMIN/GLOBULIN RATIO 0.7 (1.0-1.7); ALK PHOS 90 U/L (46-116); ALT (SGPT) 20 U/L (16-63); AST (SGOT) 18 U/L (15-37); MAGNESIUM 2.2 mg/dL (1.8-2.4); TOTAL BILIRUBIN 0.7 mg/dL (0.2-1.0); TOTAL PROTEIN 8.3 g/dL (6.4-8.2)
--- NOTE | 2019-07-05 17:52 | RAD ---
CT head and cervical spine without contrast 07/05/2019. Reason for exam: Pain after falling. On blood thinners. Noncontrast images were performed. Sagittal and coronal reconstructions of the cervical spine were obtained. Exposure: One or more of the following individualized dose reduction techniques were utilized for this examination: 1. Automated exposure control 2. Adjustment of the mA and/or kV according to patient size 3. Use of iterative reconstruction technique. Comparison is made with a study of 06/19/2012. CT head findings: There is no apparent intracranial hemorrhage or abnormal extra-axial fluid collection. No area of abnormal density has developed. The ventricles and basilar cisterns are normally positioned. Bone windows show no apparent fracture of the skull or abnormal sinus or mastoid opacification. IMPRESSION: No acute intracranial abnormality. CT cervical spine: Alignment is normal. There is no loss of vertebral body height or prevertebral soft tissue swelling. No fracture line is seen in the cervical levels. There is suggestion of slight compression of the superior endplate of T2. This appears similar to the prior exam and is favored to be chronic. Intervertebral discs are fairly well maintained. There are prominent anterior osteophytes especially at C6-7. No destructive process is seen. Evaluation of the soft tissue components of the canal is limited without intrathecal contrast. No destructive process is seen. IMPRESSION: Degenerative changes. No identified acute abnormality. CT CHEST: Reason for exam: Pain after falling. On blood thinners. Possible contusion. Noncontrast images were performed. Sagittal and coronal reconstructions were obtained. Exposure: One or more of the following individualized dose reduction techniques were utilized for this examination: 1. Automated exposure control 2. Adjustment of the mA and/or kV according to patient size 3. Use of iterative reconstruction technique. Comparison is made with a study of 07/16/2015. FINDINGS: There is some chronic pleural thickening and a small amount of pleural fluid posteriorly on each side. No significant pulmonary parenchymal abnormality is seen. There is no evidence of lung contusion or pneumothorax. The central airways appear normal. There is no apparent mediastinal fluid or blood. There is some pericardial calcification. Images through the upper abdomen show a vena cava filter in place. No acute abnormality is seen. Bone windows some chronic appearing right rib deformities. No acute abnormality is seen. IMPRESSION: No evidence of significant injury to the chest. Electronically signed by: Carlos Schroeder Jr., MD (07/05/2019 5:49 PM) [facility]
[2019-07-05 18:24] LABS: CLARITY,URINE CLEAR; COLOR,URINE YELLOW
[2019-07-05 18:25] LABS: BILIRUBIN,URINE NEG (NEG); GLUCOSE,URINE NEG (NEG); NITRITE,URINE NEG (NEG); UROBILINOGEN,URINE 0.2 mg/dL (0.2 mg/dL)
[2019-07-05 18:53] LABS: BACTERIA,URINE FEW /HPF (0-FEW); SQUAMOUS EPITHELIAL CELL,UR OCC /LPF; WBC,URINE 0 /HPF (0-4)
== END 2019-07-05 19:40 | disposition home or self-care (01) ==
LOC: ER 16:34
DX: N28.9 Disorder of kidney and ureter, unspecified (principal); F03.90 Unspecified dementia, unspecified severity, without behavioral disturbance, psychotic disturbance, mood disturbance, and anxiety; R41.82 Altered mental status, unspecified; W18.39XA Other fall on same level, initial encounter; Y93.89 Activity, other specified; Y92.89 Other specified places as the place of occurrence of the external cause; Y99.8 Other external cause status
CPT/HCPCS: 36415; 70450; 71250; 72125; 80053; 81001; 82140; 82553; 83605; 83735; 84484; 85025; 85610; 85730; 93005; 99285

== ENCOUNTER 2019-11-09 21:57 | Inpatient (IN) | payer MEDICARE, OTHER ==
[~2019-11-09] VITALS: Ht 180.3 cm; Wt 107.0 kg
[2019-11-09] MEDS ORDERED: IV NORMAL SALINE 1,000ML 1,000 ML IV SCH (22:35)
[2019-11-09 22:48] LABS: BASO % 0 % (0-3); EOS # 0.1 x10^3/uL (0.0-0.7); EOS % 1 % (0-3); HEMATOCRIT 44.9 % (39.0-53.0); HEMOGLOBIN 14.7 g/dL (13.0-17.5); LYMPH # 1.6 x10^3/uL (1.0-4.8); LYMPH % 17 % (24-48); MEAN CORPUSCULAR HEMOGLOBIN 30 pg (25-35); MEAN CORPUSCULAR HGB CONC 33 g/dL (31-37); MEAN CORPUSCULAR VOLUME 92 fL (79-100); MONO # 0.8 x10^3/uL (0.0-1.1); MONO % 9 % (0-9); NEUT # 6.8 x10^3uL (1.8-7.7); NEUT % 73 % (31-73); PLATELET COUNT 249 x10^3/uL (140-400); RED CELL DISTRIBUTION WIDTH 15.4 % (11.5-14.5); WHITE BLOOD COUNT 9.4 x10^3/uL (4.0-11.0)
[2019-11-09 22:53] LABS: CALCIUM 9.4 mg/dL (8.5-10.1); CREATININE 1.7 mg/dL (0.7-1.3); GFR 38.7
[2019-11-09 22:58] LABS: BACTERIA,URINE MOD /HPF (0-FEW); BILIRUBIN,URINE NEG (NEG); CLARITY,URINE HAZY; COLOR,URINE YELLOW; GLUCOSE,URINE NEG (NEG); NITRITE,URINE POS (NEG); RBC,URINE OCC /HPF (0-2); WBC,URINE >40 /HPF (0-4)
[2019-11-09 23:00] LABS: ALBUMIN 3.9 g/dL (3.4-5.0); ALBUMIN/GLOBULIN RATIO 0.9 (1.0-1.7); TOTAL BILIRUBIN 0.6 mg/dL (0.2-1.0); TOTAL PROTEIN 8.1 g/dL (6.4-8.2)
--- NOTE | 2019-11-09 23:08 | RAD ---
PORTABLE CHEST 1V Clinical Indication: Reason: rt flank pain : Comparison: AP chest 01/23/2019. Findings: Atherosclerotic aortic arch. Unchanged cardiomegaly. Pulmonary vasculature is upper limits of normal. Cannot exclude left basilar airspace disease. Evaluation is limited due to cardiac silhouette. There is no pneumothorax. No pleural effusion is appreciated. No acute bone abnormality. IMPRESSION: Cannot exclude left basilar airspace disease. Electronically signed by: Xavier Caballero MD (11/09/2019 11:06 PM) [facility]
--- NOTE | 2019-11-09 23:18 | RAD ---
PQRS Compliance Statement: One or more of the following individualized dose reduction techniques were utilized for this examination: 1. Automated exposure control 2. Adjustment of the mA and/or kV according to patient size 3. Use of iterative reconstruction technique CT ABDOMEN PELVIS WO CONTRAST Clinical Indication: Reason: rt flank pain / Spl. Instructions: / History: Comparison: CT abdomen and pelvis March 24, 2017. Technique: Helical CT imaging of the abdomen and pelvis is performed without IV or oral contrast. Findings: Evaluation of solid organs and bowel is limited without oral and IV contrast, decreasing sensitivity for detection of pathology. Pericardial calcifications are noted. Cardiac size upper limits of normal. There are chronic bilateral posterior pleural effusions and/or pleural thickening. Mild scarring in the bilateral lung bases. There is posterior left lower lobe round atelectasis. Cholecystectomy. There is infrarenal IVC filter. Small metallic density medial to the proximal stomach, unchanged. The liver, spleen, pancreas, and adrenal glands are stable. Severe atherosclerotic calcification of the abdominal aorta and iliac arteries, no aneurysm. Bilateral renal cysts do not require follow-up. There is a 3 mm nonobstructing left renal calculus. There is a 4 mm left ureteral calculus slightly distal to the pelvic brim, image 105. This is producing minimal left hydronephrosis. There is no right ureteral calculus. No right hydronephrosis. Stomach unremarkable. No dilated small bowel is seen. Probable suture material of the rectum. There is moderate to severe distal colon diverticulosis. No colon wall thickening is identified. The appendix is not seen, no secondary signs of appendicitis. No abdominal adenopathy or free fluid. Urinary bladder is mostly decompressed. There is mild wall thickening. Prostate is upper limits of normal in size, protrudes into the base of the bladder. There is no pelvic free fluid. Question small fat-containing right inguinal hernia. Vacuum disc phenomenon L4/L5 and L5/S1. IMPRESSION: 1. There is no right obstructive uropathy. There is minimal left obstructive uropathy secondary to a 4 mm ureteral calculus slightly distal to the pelvic brim. 2. Nonobstructing left renal calculus. 3. The prostate protrudes into the base of the bladder. There is mild wall thickening of the urinary bladder. Considerations include chronic bladder outlet obstruction or nonspecific cystitis. 4. Moderate to severe colon diverticulosis. 5. Chronic bilateral small pleural thickening/pleural effusions. Electronically signed by: Xavier Caballero MD (11/09/2019 11:16 PM) [facility]
--- NOTE | 2019-11-09 23:25 | PHYS DOC ---
Past History Past Medical History: Dementia, Heart Disease, Hypertension Past Surgical History: Cholecystectomy, Other Additional Past Surgical Histo: hernia repair, Smoking: Non-smoker Alcohol Use: None Drug Use: None Adult General Chief Complaint Chief Complaint: FLANK PAIN HPI HPI Patient is a 84-year-old male who presents for abdominal pain. Onset was 3 days ago and worsening without any known inciting event, trauma, or ingestion. Nothing known makes better or worse. Patient describes generalized abdominal pain. Admits he has had colic type pain on bilateral flanks but today, feels it mostly in his right CVA area that radiates down into his groin. Associated symptoms include nausea and urinary changes versus baseline. Admits dysuria and increased difficulty initiating stream and decreased p.o. intake for past 24 hours. Patient denies any fever, COVID-19 contact, chest pain, shortness of breath, history of AAA, peripheral arterial/vascular disease. Patient with full capacity confirms he is DNR status at this time Review of Systems Review of Systems Fourteen body systems of review of systems have been reviewed. See HPI for pertinent positives and negative responses, other ku all other systems are negative, non-pertinent or non-contributory Current Medications Current Medications Current Medications Medications (Trade) Dose Ordered Sig/Ever Start Time Stop Time Status Last Admin Dose Admin Ceftriaxone Sodium 2 gm/ Sodium Chloride 100 ml @ 200 mls/hr 1X ONCE 11/09/19 23:15 11/09/19 23:44 UNV Fentanyl Citrate (Fentanyl 2ml Vial) 50 mcg 1X ONCE 11/09/19 22:45 11/09/19 22:46 DC Sodium Chloride 1,000 ml @ 1,000 mls/hr Q1H 11/09/19 22:35 11/09/19 23:34 Allergies Allergies Allergies Coded Allergies Type Severity Reaction Last Updated Verified No Known Drug Allergies 01/23/19 No Physical Exam Physical Exam Constitutional: Well developed, well nourished, moderate distress due to pain, non-toxic appearance. HENT: Normocephalic, atraumatic, bilateral external ears normal, oropharynx moist, no oral exudates, nose normal. Eyes: PERRLA, EOMI, conjunctiva normal, no discharge. Neck: Normal range of motion, no tenderness, supple, no stridor. Cardiovascular: Heart rate regular, sinus rhythm, no murmurs rubs or gallops Lungs & Thorax: Bilateral breath sounds clear to auscultation Abdomen: Bowel sounds normal, soft, generalized abdominal tenderness, guarding present, no rebound, no masses, no pulsatile masses. Nonsurgical abdomen, no peritoneal signs Skin: Warm, dry, no erythema, no rash. Skin changes consistent with bilateral lower extremity venous stasis Back: No tenderness, bilateral CVA tenderness Extremities: No tenderness, no cyanosis, no clubbing, ROM intact, 1+ pitting edema of bilateral lower extremities Neurologic: Alert and oriented X 3, grossly normal motor & sensory function, no focal deficits noted. Psychologic: Affect normal, judgement normal, mood normal. Current Patient Data Vital Signs Vital Signs Date Time Temp Pulse Resp B/P (MAP) Pulse Ox O2 Delivery O2 Flow Rate FiO2 11/09/19 23:14 18 94 11/09/19 21:57 98.8 99 156/113 (127) Room Air Lab Results Laboratory Tests Test 11/09/19 22:10 White Blood Count 9.4 x10^3/uL (4.0-11.0) Red Blood Count 4.90 x10^6/uL (4.30-5.70) Hemoglobin 14.7 g/dL (13.0-17.5) Hematocrit 44.9 % (39.0-53.0) Mean Corpuscular Volume 92 fL (79-100) Mean Corpuscular Hemoglobin 30 pg (25-35) Mean Corpuscular Hemoglobin Concent 33 g/dL (31-37) Red Cell Distribution Width 15.4 % (11.5-14.5) Platelet Count 249 x10^3/uL (140-400) Neutrophils (%) (Auto) 73 % (31-73) Lymphocytes (%) (Auto) 17 % (24-48) Monocytes (%) (Auto) 9 % (0-9) Eosinophils (%) (Auto) 1 % (0-3) Basophils (%) (Auto) 0 % (0-3) Neutrophils # (Auto) 6.8 x10^3uL (1.8-7.7) Lymphocytes # (Auto) 1.6 x10^3/uL (1.0-4.8) Monocytes # (Auto) 0.8 x10^3/uL (0.0-1.1) Eosinophils # (Auto) 0.1 x10^3/uL (0.0-0.7) Basophils # (Auto) 0.0 x10^3/uL (0.0-0.2) Urine Collection Type Unknown Urine Color Yellow Urine Clarity Hazy Urine pH 7.0 Urine Specific Dalton 1.025 Urine Protein 100 mg/dl (NEG-TRACE) Urine Glucose (UA) Neg mg/dL (NEG) Urine Ketones (Stick) 15 mg/dL (NEG) Urine Blood Small (NEG) Urine Nitrite Pos (NEG) Urine Bilirubin Neg (NEG) Urine Urobilinogen Dipstick 1.0 mg/dL (0.2 mg/dL) Urine Leukocyte Esterase Mod (NEG) Urine RBC Occ /HPF (0-2) Urine WBC >40 /HPF (0-4) Urine Squamous Epithelial Cells None /LPF Urine Bacteria Mod /HPF (0-FEW) Sodium Level 141 mmol/L (136-145) Potassium Level 4.0 mmol/L (3.5-5.1) Chloride Level 104 mmol/L (98-107) Carbon Dioxide Level 23 mmol/L (21-32) Anion Gap 14 (6-14) Blood Urea Nitrogen 26 mg/dL (8-26) Creatinine 1.7 mg/dL (0.7-1.3) Estimated GFR (Cockcroft-Gault) 38.7 BUN/Creatinine Ratio 15 (6-20) Glucose Level 90 mg/dL (70-99) Calcium Level 9.4 mg/dL (8.5-10.1) Total Bilirubin 0.6 mg/dL (0.2-1.0) Aspartate Amino Transf (AST/SGOT) 23 U/L (15-37) Alanine Aminotransferase (ALT/SGPT) 18 U/L (16-63) Alkaline Phosphatase 84 U/L (46-116) Creatine Kinase 228 U/L (39-308) Troponin I Quantitative < 0.017 ng/mL (0-0.055) Total Protein 8.1 g/dL (6.4-8.2) Albumin 3.9 g/dL (3.4-5.0) Albumin/Globulin Ratio 0.9 (1.0-1.7) Lipase 57 U/L (73-393) EKG EKG EKG ordered and interpreted by myself at 2313 hrs. as sinus rhythm at 91 bpm, unremarkable intervals besides prolonged QTC at 479, right axis deviation, right bundle bRanch block, no STEMI Radiology/Procedures Radiology/Procedures PROCEDURE: PORTABLE CHEST 1V PORTABLE CHEST 1V Clinical Indication: Reason: rt flank pain : Comparison: AP chest 01/23/2019. Findings: Atherosclerotic aortic arch. Unchanged cardiomegaly. Pulmonary vasculature is upper limits of normal. Cannot exclude left basilar airspace disease. Evaluation is limited due to cardiac silhouette. There is no pneumothorax. No pleural effusion is appreciated. No acute bone abnormality. IMPRESSION: Cannot exclude left basilar airspace disease. Electronically signed by: Xavier Caballero MD (11/09/2019 11:06 PM) [facility] PROCEDURE: CT ABDOMEN PELVIS WO CONTRAST PQRS Compliance Statement: One or more of the following individualized dose reduction techniques were utilized for this examination: 1. Automated exposure control 2. Adjustment of the mA and/or kV according to patient size 3. Use of iterative reconstruction technique CT ABDOMEN PELVIS WO CONTRAST Clinical Indication: Reason: rt flank pain / Spl. Instructions: / History: Comparison: CT abdomen and pelvis March 24, 2017. Technique: Helical CT imaging of the abdomen and pelvis is performed without IV or oral contrast. Findings: Evaluation of solid organs and bowel is limited without oral and IV contrast, decreasing sensitivity for detection of pathology. Pericardial calcifications are noted. Cardiac size upper limits of normal. There are chronic bilateral posterior pleural effusions and/or pleural thickening. Mild scarring in the bilateral lung bases. There is posterior left lower lobe round atelectasis. Cholecystectomy. There is infrarenal IVC filter. Small metallic density medial to the proximal stomach, unchanged. The liver, spleen, pancreas, and adrenal glands are stable. Severe atherosclerotic calcification of the abdominal aorta and iliac arteries, no aneurysm. Bilateral renal cysts do not require follow-up. There is a 3 mm nonobstructing left renal calculus. There is a 4 mm left ureteral calculus slightly distal to the pelvic brim, image 105. This is producing minimal left hydronephrosis. There is no right ureteral calculus. No right hydronephrosis. Stomach unremarkable. No dilated small bowel is seen. Probable suture material of the rectum. There is moderate to severe distal colon diverticulosis. No colon wall thickening is identified. The appendix is not seen, no secondary signs of appendicitis. No abdominal adenopathy or free fluid. Urinary bladder is mostly decompressed. There is mild wall thickening. Prostate is upper limits of normal in size, protrudes into the base of the bladder. There is no pelvic free fluid. Question small fat-containing right inguinal hernia. Vacuum disc phenomenon L4/L5 and L5/S1. IMPRESSION: 1. There is no right obstructive uropathy. There is minimal left obstructive uropathy secondary to a 4 mm ureteral calculus slightly distal to the pelvic brim. 2. Nonobstructing left renal calculus. 3. The prostate protrudes into the base of the bladder. There is mild wall thickening of the urinary bladder. Considerations include chronic bladder outlet obstruction or nonspecific cystitis. 4. Moderate to severe colon diverticulosis. 5. Chronic bilateral small pleural thickening/pleural effusions. Electronically signed by: Xavier Caballero MD (11/09/2019 11:16 PM) [facility] Course & Med Decision Making Course & Med Decision Making Ambulatory patient who appears in pain seen on ER evaluation ABCs grossly non-concerning Comprehensive history and physical exam obtained, subsequent diagnostic studies ordered IV access obtained, 1 L IV normal saline, 50 mcg fentanyl, and 4 mg IV Zofran administered with improvement in patient's presenting symptoms Patient reevaluated numerous times throughout ER visit, no emergent or surgical findings apparent Comprehensive work-up discussed, I reviewed most likely diagnosis of UTI with subsequent left renal nephrolithiasis. Patient is high risk for poor prognosis if discharged home with antibiotics, I recommended admission for further medical management and he was amenable IV 2 g of Rocephin started On-call hospitalist, Dr. Morris, was contacted and case discussed. He agreed to admission under his care at [facility] I relayed this decision to patient he was agreeable. All questions and concerns addressed prior to ER transport to [facility] for continued medical care Yessenia Disclaimer Dragon Disclaimer This electronic medical record was generated, in whole or in part, using a voice recognition dictation system. Departure Departure: Impression: Primary Impression: UTI (urinary tract infection) Additional Impression: Left nephrolithiasis Disposition: ADMITTED INPATIENT Admitting Physician: Esteban Morris Condition: STABLE Referrals: EDVIN SOLO (PCP) Justification of Admission: Justification of Admission: Justification of Admission Dx: Yes (Diverticulitis, UTI with bilateral kidney stones and high risk geriatric patient) Problem Qualifiers NEFTALI ZAMORANO DO Nov 09, 2019 23:25
[2019-11-09] MEDS ORDERED: CIPROFLOXACIN 400MG PREMIX 200 ML IV ONE (23:30)
[2019-11-09] MEDS ORDERED: ONDANSETRON PF 4 MG/2 ML VIAL. IVP ONE (23:30)
[2019-11-09] MEDS ORDERED: IV NORMAL SALINE 100ML 100 ML ONE (23:53)
[2019-11-10 00:10] VITALS: BP 149/84
--- NOTE | 2019-11-10 00:10 | NUR ---
Pt admitted to [address] [place] [id number] from ER via [facility], accompanied by EMS and nursing staff. Pt ambulated to bed from [facility] x1 assist, unsteady gait noted. Admission assessment completed. Pt here for UTI adn renal stones. VSS. Pt placed on Telemetry, Stach noted on monitor. Health history and home medications reviewed with pt, but pt forgetful and stated that "I don't take half of my medications like I should...that is probably why I am here." Pt lives home alone with his 2 cats. SCDs for VTE. PT/OT and case management consulted. IV Rocephin started per order. Pt was given written information regarding hospital policies, unit procedures and contact persons. Valuables were checked and left at bedside. Bed alarm on.
[2019-11-10] MEDS: IV NORMAL SALINE 1,000ML 1,000 ML IV SCH ×2 (00:14→13:08)
[2019-11-10 05:15] VITALS: BP 144/80
--- NOTE | 2019-11-10 08:21 | EKG ---
[address] [address] Test Date: 2019-11-09 Test Time: 23:02:13 Pat Name: JAMES DAVID Department: Room: Gender: M [employer] Official: VENTURA : [id number] Requested By: NEFTALI ZAMORANO Order Number: [id number] Reading MD: Measurements Intervals [place] Rate: 91 P: -54 [place]: 112 QRS: 105 QRSD: 94 T: 7 QT: 388 QTc: 479 Interpretive Statements SUPRAVENTRICULAR RHYTHM LEFT ATRIAL ABNORMALITY RIGHTWARD AXIS LOW LIMB LEAD VOLTAGE INCOMPLETE RIGHT BUNDLE BRANCH BLOCK PROLONGED QT ABNORMAL ECG RI6.02 No previous ECG available for comparison
[2019-11-10] MEDS ORDERED: ONDANSETRON PF 4 MG/2 ML VIAL. IVP PRN (08:30)
[2019-11-10] MEDS ORDERED: ASPIRIN CHEWABLE 81 MG TABLET. PO SCH (09:00)
[2019-11-10] MEDS ORDERED: NON FORMULARY ITEM (Multivitamin (Multi Vitamin Daily) 1 TAB) PO SCH (09:00)
[2019-11-10] MEDS ORDERED: ASCORBIC ACID 250 MG PO SCH (09:00)
[2019-11-10] MEDS ORDERED: BUMETANIDE 2 MG PO SCH (09:00)
--- NOTE | 2019-11-10 09:37 | HP ---
ADMIT DATE: ATTENDING PHYSICIAN: Dr. Pires. CHIEF COMPLAINT: Abdominal pain. HISTORY OF PRESENT ILLNESS: The patient is an 84-year-old gentleman with new onset 3 days of worsening right-sided abdominal pain radiating anteriorly. It is flank in nature and it is pretty severe. He has spasms. There is no comfortable position. It radiates and associated with profound nausea. It does radiate to his right groin. CT of the abdomen showed evidence of bilateral nephrolithiasis and there is no obstructive uropathy, but he does have multiple stones and I believe clinically he is passing one on the right side. He has not had a history of renal colic in the past. PAST MEDICAL HISTORY: Quite complicated. He has underlying dementia, heart disease, hypertension and previous cholecystectomy. He is DNR per advanced directive. There is no history of aneurysm. I believe he is diabetic. There is also from the past records indicate he has a history of COPD; paroxysmal atrial fibrillation; chronic low back pain; acute on chronic diastolic heart failure, compensated; neurogenic claudication; frequent UTI and nephrolithiasis. CURRENT MEDICATIONS: Reviewed. He was taking Uroxatral for enlarged prostate. He is on chronic anticoagulation with Xarelto, Zocor, niacin, metoprolol, diltiazem, aspirin, hydrocodone, Valium p.r.n., zinc, bumetanide daily, vitamin C, multivitamin and Proscar. ALLERGIES: He has no known drug allergies. SOCIAL HISTORY: He was a smoker in the past. He does not drink any alcohol. He is single and lives alone in a house. He has been fairly independent and active. FAMILY HISTORY: Noncontributory. REVIEW OF SYSTEMS: Significant for the localized abdominal pain, flank pain radiating anteriorly to the right groin. He has had some hematuria. He has had nausea. He denied any chest pain or palpitations. All other systems reviewed and turned to be negative. PHYSICAL EXAMINATION: GENERAL: When I saw him, this is a pleasant gentleman who was fairly alert. He was uncomfortable from spasms. INITIAL VITAL SIGNS: Showed blood pressure 144/80 mmHg, temperature 98.3 degrees Fahrenheit, pulse 82 and regular, oxygen saturation 96% on room air. HEENT: Head is without trauma. Pupils are reactive. Sclerae nonicteric. Oropharynx is clear. NECK: Supple, no bruits. LUNGS: Clear. CARDIOVASCULAR: Showed regular heart tones. No gallops. Peripheral pulses are palpable and full. ABDOMEN: Obese, protuberant. Hypoactive bowel sounds. He has tenderness on palpation over the right flank. EXTREMITIES: Showed no cyanosis or edema. SKIN: Warm and dry. NEUROLOGIC: Focally intact. Gait normal. Speech is fluent. PERTINENT LABORATORY STUDIES: Urinalysis shows specific gravity 1.025, protein, negative for glucose, small amount of blood, moderate amount of bacteria is present. Hemoglobin maintained at 14.7 g/dL with a white count of 9400. His creatinine is 1.7 mg percent from his diuretics. Electrolytes were within normal range. Cardiac enzymes were negative. ASSESSMENT: 1. An 84-year-old gentleman with acute renal colic. 2. Bilateral nephrolithiasis. 3. Chronic heart failure, diastolic, compensated. 4. Chronic obstructive pulmonary disease. 5. Paroxysmal atrial fibrillation. 6. Chronic anticoagulation. 7. 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 PLAN: 1. Admit to the inpatient unit. 2. Gentle IV hydration with saline at 75 mL an hour, given his history of heart failure. 3. I will continue his Bumex in these rare instances where he needs his diuretic. 4. Serial chemistries. 5. P.r.n. narcotics for pain. 6. P.r.n. nausea medication. 7. Home meds continued. ELENA PIRES MD DR: NAUN/sera JOB#: [id number] / [id number] EDVIN Rios
[2019-11-10 11:14] VITALS: BP 132/75
[2019-11-10] MEDS ORDERED: ASPI325T8 PO (12:24)
[2019-11-10] MEDS ORDERED: LIDO700A21 TP (12:24)
[2019-11-10] MEDS ORDERED: CYCL-331 PO (12:24)
[2019-11-10] MEDS ORDERED: ALFU10TA23 PO (12:24)
[2019-11-10] MEDS ORDERED: NIAC500T PO (12:24)
[2019-11-10] MEDS ORDERED: BUME2TAB3 PO ×2 (12:24→12:26)
[2019-11-10] MEDS ORDERED: ALFU10TA4 PO (12:24)
[2019-11-10] MEDS ORDERED: TAPE250T PO (12:24)
[2019-11-10] MEDS: FINASTERIDE 5 MG TABLET PO SCH (13:00)
[2019-11-10] MEDS: ZINC SULFATE 220 MG CAPSULE. PO SCH (13:00)
[2019-11-10] MEDS: METOPROLOL SUCC 24HR ER 50 MG TAB.ER.24H. PO SCH (13:00)
[2019-11-10] MEDS: diazePAM 5 MG TABLET. PO SCH ×3 (14:00→20:43)
[2019-11-10] MEDS: ASCORBIC ACID 500 MG TABLET PO SCH (15:53)
[2019-11-10 16:09] VITALS: BP 134/83
[2019-11-10] MEDS: RIVAROXABAN 10 MG TABLET. PO SCH (16:37)
[2019-11-10] MEDS ORDERED: ALFUZOSIN HCL 10 MG PO SCH (17:00)
--- NOTE | 2019-11-10 17:57 | NUR ---
pt reports severe pain on right sided flank area radiating into right quadrant. After changes in dosages of Fentanyl from 50 mcg to 75mcg to 100 mcg PRN Q2, pt has some relieve with fentanyl 100 mcg q2 PRN. he states it feels like spasms that occur every 15 minutes and with position changes. Pt does request "some colace or exlax" due to feeling like needing to have a BM hoping it would relieve some pressure. Home medications reconciled and continued.
[2019-11-10 18:59] VITALS: BP 107/67
[2019-11-10] MEDS: TAMSULOSIN 0.4 MG CAP.ER.24H. PO SCH (20:43)
[2019-11-10] MEDS ORDERED: SIMVASTATIN 40 MG TABLET. PO SCH (21:00)
[2019-11-11 06:03] VITALS: BP 150/74
[2019-11-11 06:13] LABS: CALCIUM 8.5 mg/dL (8.5-10.1); CREATININE 1.2 mg/dL (0.7-1.3); GFR 57.8
[2019-11-11] MEDS: LACTOBACILLUS RHAMNOSUS GG 1 CAPSULE. PO SCH ×2 (07:52→20:55)
[2019-11-11] MEDS: ASCORBIC ACID 500 MG TABLET PO SCH (07:53)
[2019-11-11] MEDS: MULTIVITAMIN with MINERAL TABLET. PO SCH (07:53)
[2019-11-11] MEDS: diazePAM 5 MG TABLET. PO SCH ×3 (07:53→20:55)
[2019-11-11] MEDS: ZINC SULFATE 220 MG CAPSULE. PO SCH (07:53)
[2019-11-11] MEDS: FINASTERIDE 5 MG TABLET PO SCH (07:53)
[2019-11-11 10:34] VITALS: BP 116/53
[2019-11-11] MEDS: METOPROLOL SUCC 24HR ER 50 MG TAB.ER.24H. PO SCH (11:02)
[2019-11-11] MEDS: NYSTATIN TOPICAL POWDER 15GM BOTTLE. TP SCH ×2 (11:06→20:55)
[2019-11-11 14:16] VITALS: BP 107/68
[2019-11-11] MEDS ORDERED: IOHEXOL 300 MG/ML 75 ML VIAL. IV ONE (15:30)
--- NOTE | 2019-11-11 16:30 | RAD ---
Exam: CT of abdomen and pelvis without and with contrast INDICATION: Abdominal pain on right side nonobstructing stone on the left TECHNIQUE: Sequential axial images through the abdomen and pelvis obtained before and after the administration of 70 mL of Isovue-370 IV contrast. Sagittal and coronal reformatted images were reconstructed from the axial data and reviewed. Comparisons: 11/09/2019 FINDINGS: Heart size is normal. No pericardial effusion. There are trace bilateral pleural effusions. Visualized lung bases are otherwise clear. Liver, spleen, pancreas and adrenals are unremarkable. Gallbladder is surgically absent. Kidneys demonstrate symmetric enhancement. Several hypoattenuating cystic lesions are noted in the kidneys bilaterally representing simple cysts. There is a nonobstructing 2 mm calculus at the upper pole of the left kidney. A 6 mm calculus at the distal right ureter is again noted. No other ureteral calculi are identified. Bladder is decompressed not well evaluated. Prostate is not enlarged. Diverticulosis is noted within the descending and sigmoid colon without evidence of acute diverticulitis. Remainder of the large and small bowel are unremarkable. Appendix is normal. No free intra-abdominal air or fluid. No obstruction. Abdominal aorta has a normal course and caliber. Abdominal vasculature is patent. IVC filter is noted within the infrarenal IVC. No enlarged intra-abdominal lymph nodes are identified. Mildly displaced right posterior 10th and 11th rib fractures. IMPRESSION: 1. Mildly displaced posterior right 10th and 11th rib fractures. 2. Redemonstration of a nonobstructing calculus at the distal left ureter measuring approximately 6 mm. Nonobstructing left renal calculus is also noted. No hydronephrosis. 3. Diverticulosis without evidence of acute diverticulitis. 4. Trace bilateral pleural effusions. Exposure: One or more of the following in the visualized dose reduction techniques were utilized for this examination: 1. Automated exposure control 2. Adjustment of the MA and/or KV according to patient size 3. Use of iterative of reconstructive technique Electronically signed by: Eriberto Rothman MD (11/11/2019 4:28 PM) [id number]
[2019-11-11] MEDS: RIVAROXABAN 10 MG TABLET. PO SCH (16:36)
[2019-11-11] MEDS: MORPHINE SULFATE 2 MG/ML DISP.SYRIN. IV PRN ×2 (16:39→20:55)
[2019-11-11] MEDS: IV NORMAL SALINE 1,000ML 1,000 ML IV SCH (18:00)
--- NOTE | 2019-11-11 19:14 | PN ---
DATE: 11/11/2019 SUBJECTIVE: The patient is resting, slightly propped up in bed, in no apparent respiratory distress. He apparently was admitted with abdominal pain started about 3 days ago, mostly on the right side, radiating down to the right groin area. He describes it as spasm. There is no comfortable position when he came in. The pain is associated with profound nausea. It does radiate to his right groin. CT of the abdomen showed evidence of bilateral nephrolithiasis. There is no obstructive uropathy, but he does have multiple stones. The CT scan of the abdomen done on the showed that there is no right obstructive uropathy. There is minimal left obstructive uropathy secondary to a 4 mm ureteral calculus, slightly distal to the pelvic brim, has nonobstructing left renal calculus. The prostate protrudes into the base of the bladder. There is mild wall thickening of the urinary bladder, consideration include chronic bladder outlet obstruction or nonspecific cystitis. He has [id number] colon diverticulosis, chronic bilateral small pleural thickening, pleural effusion. PHYSICAL EXAMINATION: GENERAL: When I examined him this afternoon, he looked pale, not jaundiced or cyanosed. No lymphadenopathy. No thyromegaly. No jugular venous distention. Has chronic bilateral venous stasis. VITAL SIGNS: His heart rate was 67, blood pressure was 107/68, temperature was 97.7, respiratory rate 20, and oxygen saturation was 94%. HEAD, EYES, EARS, NOSE AND THROAT: Showed normocephalic, atraumatic. NECK: Supple. HEART: Showed normal first and second heart sounds. No gallop, rub or murmur. CHEST: Clear to auscultation. No crepitation or rhonchi. ABDOMEN: Distended, soft. Tenderness mostly in the right flank area, radiating down to the right groin. There is no guarding or rigidity. No organomegaly. All hernial orifice intact. Bowel sounds normal. NEUROLOGIC: He was awake, alert, responding appropriately. All cranial nerves are intact. He moves extremities without difficulty. LABORATORY DATA: As of this morning showed his serum sodium 140, potassium 4, chloride 105, bicarbonate 24, anion gap of 11, BUN 13, creatinine 1.2, estimated GFR was 57 mL per minute. His glucose 107, calcium was 8.5. His urinalysis showed the urine was yellow, hazy with a pH of 7, specific gravity of 1.025. There is large amount of protein. The urine was negative for glucose, small amount of ketones, small amount of blood, positive for nitrite, moderate amount of leukocyte esterase, occasional rbc's, and more than 40 wbc's. There is moderate amount of bacteria. His urine culture showed greater than 100,000 colony forming units per mL of gram-negative rods, identified as Proteus mirabilis. The sensitivity is still pending at the time of this dictation. ASSESSMENT: 1. Right flank pain, radiating to the right groin area, consistent with renal colic, has bilateral nephrolithiasis; however, there is no obstructing stones in the right side. He has a 4 mm obstructing stone in the left side. 2. Chronic diastolic congestive heart failure. 3. Chronic obstructive pulmonary disease. 4. Paroxysmal atrial fibrillation. 5. Chronic anticoagulation. 6. Chronic kidney disease. 7. He has also severe constipation. According to him, he has not had any bowel movement for almost 5 days now. PLAN: My plan is to repeat the CT scan of the abdomen and pelvis without contrast. Meanwhile, we will continue with IV fluid, continue with IV antibiotic, continue with Flomax. I will switch his pain medication to morphine instead of fentanyl. WILLOW CORNEJO MD DR: MIKE/sera JOB#: [id number] / [id number]
[2019-11-11 19:50] VITALS: BP 152/80
[2019-11-11] MEDS: TAMSULOSIN 0.4 MG CAP.ER.24H. PO SCH (20:55)
[2019-11-11 23:00] VITALS: BP 111/67
[2019-11-12] MEDS: MORPHINE SULFATE 2 MG/ML DISP.SYRIN. IV PRN ×2 (01:33→10:00)
[2019-11-12 05:12] VITALS: BP 117/68
[2019-11-12] MEDS: IV NORMAL SALINE 1,000ML 1,000 ML IV SCH (05:21)
[2019-11-12 09:13] LABS: ALBUMIN/GLOBULIN RATIO 0.7 (1.0-1.7); C REACTIVE PROTEIN 19.3 mg/L (0-3.3); CALCIUM 8.4 mg/dL (8.5-10.1); GFR 71.4; POTASSIUM 3.8 mmol/L (3.5-5.1); TOTAL BILIRUBIN 0.4 mg/dL (0.2-1.0); TOTAL PROTEIN 7.5 g/dL (6.4-8.2)
[2019-11-12 09:17] LABS: HEMATOCRIT 42.5 % (39.0-53.0); HEMOGLOBIN 13.9 g/dL (13.0-17.5); RED BLOOD COUNT 4.62 x10^6/uL (4.30-5.70); RED CELL DISTRIBUTION WIDTH 15.5 % (11.5-14.5); WHITE BLOOD COUNT 8.2 x10^3/uL (4.0-11.0)
[2019-11-12] MEDS: LIDOCAINE (700MG/PATCH) PATCH. TD SCH (09:41)
[2019-11-12] MEDS: ACETAMINOPHEN 325 MG TABLET PO PRN (09:42)
[2019-11-12] MEDS: ASCORBIC ACID 500 MG TABLET PO SCH (09:42)
[2019-11-12] MEDS: diazePAM 5 MG TABLET. PO SCH ×3 (09:42→20:43)
[2019-11-12] MEDS: ZINC SULFATE 220 MG CAPSULE. PO SCH (09:42)
[2019-11-12] MEDS: LACTOBACILLUS RHAMNOSUS GG 1 CAPSULE. PO SCH ×2 (09:42→20:43)
[2019-11-12] MEDS: FINASTERIDE 5 MG TABLET PO SCH (09:42)
[2019-11-12] MEDS: MULTIVITAMIN with MINERAL TABLET. PO SCH (09:42)
[2019-11-12] MEDS: NYSTATIN TOPICAL POWDER 15GM BOTTLE. TP SCH ×2 (09:42→20:46)
[2019-11-12 11:29] VITALS: BP 137/66
[2019-11-12] MEDS: METOPROLOL SUCC 24HR ER 50 MG TAB.ER.24H. PO SCH (12:06)
[2019-11-12] MEDS: RIVAROXABAN 10 MG TABLET. PO SCH (14:16)
[2019-11-12] MEDS: DOCUSATE SODIUM 100 MG CAPSULE PO SCH ×2 (14:17→20:43)
[2019-11-12 16:25] VITALS: BP 144/77
[2019-11-12] MEDS: POLYETHYLENE GLYCOL 3350 17 GM PACKET. PO SCH (18:00)
--- NOTE | 2019-11-12 18:17 | PN ---
DATE: 11/12/2019 SUBJECTIVE: The patient is resting, slightly propped up in bed, continued to complain of pain in the right flank area. I did actually repeat CT scan of the abdomen without and with contrast and he was basically found to have mildly displaced posterior right 10th and 11th rib fracture; redemonstration of a nonobstructing calculus at the distal left ureter, measuring approximately 6 mm; there is nonobstructing left renal calculus is also noted; no hydronephrosis; diverticulosis without evidence of acute diverticulitis and trace bilateral pleural effusion. When I examined him and on questioning him, he apparently has had a fall few days prior to coming to the Emergency Room and initially did not have any pain in his right flank area. PHYSICAL EXAMINATION: GENERAL: When I examined him today, he looked pale. No jaundice, cyanosis or thyromegaly. No jugular venous distention. No limb edema. VITAL SIGNS: His heart rate was 81, blood pressure was 137/66, temperature 97.6, respiratory rate 22, and oxygen saturation was 99%. HEAD, EYES, EARS, NOSE AND THROAT: Showed normocephalic, atraumatic. NECK: Supple. HEART: Showed normal first and second heart sounds. No gallop or murmur. CHEST: Clear to auscultation. No crepitation or rhonchi. ABDOMEN: Distended, soft, nontender. No guarding or rigidity. No organomegaly. All hernial orifice intact. Bowel sounds normal. Has marked tenderness, mostly in the right flank area. NEUROLOGIC: He is awake, alert, responding appropriately. All cranial nerves are intact. He moves extremities without difficulty. He ambulates without assistance or assistive devices. His intake was 1600, output was 900. LABORATORY DATA: As of this morning, his white cell count was 8200, hemoglobin 14, hematocrit 42, MCV 92, and platelet count of 188,000. His chemistry showed a serum sodium 141, potassium 3.8, chloride 106, bicarbonate 25, anion gap of 10, BUN 11, creatinine 1, estimated GFR was 71 mL per minute. His glucose was 107, calcium was 8.4. Total bilirubin, AST, ALT, alkaline phosphatase were normal. His total protein was 7.5, albumin 3. C-reactive protein was 19.3. Urinalysis showed moderate amount of leukocyte esterase, positive for nitrite and more than 40 wbc's and moderate amount of bacteria. His urine culture has grown more than 100,000 colony-forming units per mL of gram-negative rods, identified as Proteus mirabilis, sensitive to all antibiotics except perhaps nitrofurantoin. ASSESSMENT: 1. Fall with right 10th and 11th rib fracture. 2. Multiple nonobstructing stones in the left ureter and left kidney. 3. Severe diverticulosis without diverticulitis. 4. He has also chronic diastolic congestive heart failure. 5. Chronic obstructive pulmonary disease. 6. Paroxysmal atrial fibrillation, rate controlled, well anticoagulated. 7. [id number] kidney injury, improving. PLAN: To continue with his current medication. We added Lidoderm patch to his right flank area. We will continue with IV antibiotic. I will start him on oral pain medication in the form of oxycodone immediate release and I will consult our executive secretary social welfare as he agreed to go to a long term facility. WILLOW CORNEJO MD DR: MIKE/sera JOB#: [id number] / [id number]
[2019-11-12 19:05] VITALS: BP 127/77
[2019-11-12] MEDS: oxyCODONE IR 5 MG TABLET PO PRN (20:43)
[2019-11-12] MEDS: TAMSULOSIN 0.4 MG CAP.ER.24H. PO SCH (20:43)
[2019-11-12] MEDS ORDERED: PATCH REMOVAL. MC SCH (21:00)
--- NOTE | 2019-11-12 21:28 | NUR ---
Pt. was lying down in bed when approached for assessment. Pt was calm and cooperative and had no complaints of pain. Pt voiced concern of having breakthrough pain while sleeping. Pt was given PO oxycodone w/ HS meds as indicated. Pt is now resting comfortably w/ call light in reach. Will continue to monitor.
[2019-11-12 22:43] VITALS: BP 137/72
[2019-11-13] MEDS: oxyCODONE IR 5 MG TABLET PO PRN (04:33)
[2019-11-13 06:14] VITALS: BP 145/73
[2019-11-13 06:35] LABS: CALCIUM 8.5 mg/dL (8.5-10.1); GFR 71.4
[2019-11-13] MEDS: POLYETHYLENE GLYCOL 3350 17 GM PACKET. PO SCH (08:15)
[2019-11-13] MEDS: ASCORBIC ACID 500 MG TABLET PO SCH (08:16)
[2019-11-13] MEDS: MULTIVITAMIN with MINERAL TABLET. PO SCH (08:16)
[2019-11-13] MEDS: FINASTERIDE 5 MG TABLET PO SCH (08:16)
[2019-11-13] MEDS: ZINC SULFATE 220 MG CAPSULE. PO SCH (08:16)
[2019-11-13] MEDS: ACETAMINOPHEN 325 MG TABLET PO PRN (08:16)
[2019-11-13] MEDS: LACTOBACILLUS RHAMNOSUS GG 1 CAPSULE. PO SCH (08:16)
[2019-11-13] MEDS: diazePAM 5 MG TABLET. PO SCH (08:16)
[2019-11-13] MEDS: DOCUSATE SODIUM 100 MG CAPSULE PO SCH (08:16)
[2019-11-13] MEDS: LIDOCAINE (700MG/PATCH) PATCH. TD SCH (08:20)
[2019-11-13] MEDS: NYSTATIN TOPICAL POWDER 15GM BOTTLE. TP SCH (09:00)
[2019-11-13 10:30] VITALS: BP 123/70
[2019-11-13 14:23] VITALS: BP 151/75
[2019-11-13] MEDS ORDERED: CEFD300C PO (15:01)
[2019-11-13] MEDS ORDERED: OXYC5TAB4 PO (15:01)
--- NOTE | 2019-11-13 15:43 | DS ---
DATE OF DISCHARGE: 11/13/2019 HOSPITAL COURSE: The patient came complaining of severe right flank pain and initially nephrolithiasis was considered; however, I did repeat his CT scan of the abdomen and pelvis with and without contrast and it was found to have right 10th and 11th rib fracture consistent with the area that he is complaining of pain. He was found to have nonobstructing stones in the distal left ureter measuring up to 6 mm and he has nonobstructing left renal calculus also noted. No hydronephrosis, has diverticulosis without evidence of acute diverticulitis. The patient's pain has gradually improved. He was able to walk with and without a walker, was able to climb stairs. He was evaluated by physical therapy, who felt that it is safe for him to go home with home health and therefore, a decision was made to discharge him home to finish antibiotic treatment for his UTI. Continue with pain management. PHYSICAL EXAMINATION: GENERAL: When I examined him this afternoon, he was sitting on the edge of the bed comfortably in no apparent distress. No pallor, jaundice, cyanosis or thyromegaly. No jugular venous distention. No limb edema. VITAL SIGNS: His heart rate was 96, blood pressure was 151/75, temperature 97.6, respiratory rate was 20, and oxygen saturation was 94%. HEAD, EYES, EARS, NOSE AND THROAT: Showed normocephalic, atraumatic. NECK: Supple. HEART: Showed normal first and second heart sounds. No gallop or murmur. CHEST: Clear to auscultation. No crepitation or rhonchi. ABDOMEN: Distended, soft, nontender. No guarding or rigidity. No organomegaly. All hernial orifice intact. Bowel sounds normal. NEUROLOGIC: He was awake, alert, responding appropriately. Moves his extremities without difficulty, ambulates with and without a walker. His intake was 1400, output was 1100. LABORATORY DATA: His most recent lab work as of this morning showed a serum sodium 143, potassium 4, chloride 110, bicarbonate 26, anion gap of 7, BUN 11, creatinine 1, estimated GFR was 71 mL per minute. His glucose was 93, calcium was 8.5. DISCHARGE MEDICATIONS: The patient was discharged home to continue on cefdinir 300 mg twice a day for 5 more days, oxycodone immediate release 5 mg every 4 hours as needed. Should continue on alfuzosin, Uroxatral 10 mg once a day, ascorbic acid 250 mg daily, aspirin 81 mg once a day, bumetanide 2 mg daily, cyclosporine 10 mg once a day and diazepam for Valium 5 mg 3 times a day, diltiazem hydrochloride 120 mg once a day, finasteride for Proscar 5 mg once a day, hydrocodone/APAP 5/325 one tablet every 6 hours, Lidoderm patches 1 patch topically on for 12 hours and off for 12 hours, metoprolol succinate 50 mg once a day, multivitamin 1 tablet once a day, niacin 500 mg once a day, rivaroxaban 20 mg once a day, simvastatin 40 mg at bedtime, tapentadol ____ mg tablet 3 times a day. He is on zinc sulfate for Orazinc 110 mg once a day. FINAL DISCHARGE DIAGNOSES: Fall with right 10th and 11th rib fracture, urinary tract infection with growth of Proteus mirabilis sensitive to all cephalosporins, asymptomatic nephrolithiasis with no evidence of obstruction or hydronephrosis. OTHER MEDICAL PROBLEMS: Include hypertension, COPD, paroxysmal atrial fibrillation, chronic back pain, peripheral vascular disease. WILLOW CORNEJO MD DR: MIKE/sera JOB#: [id number] / [id number]
--- NOTE | 2019-11-13 16:00 | NUR ---
NSG NOTE; DISCHARGE VERBAL AND WRITTEN DISCHARGE INSTRUCTIONS GIVEN TO PT WITH VERBAL UNDERSTANDING WRITTEN RX X3 GIVEN TO PT DISCHARGED TO HOME AT 1558 VIA W/C [facility] BY [facility] WHO PICKED HIM UP
== END 2019-11-13 16:03 | disposition home health service (06) | DRG 689 ==
LOC: ER 21:57 → 1 SOUTH 23:45 → UNDOADMIN 11-10 00:01 → 1 SOUTH 11-10 00:01
PROVIDERS: ADMIT Hospitalist; ATTEND Internal Medicine
DX: N39.0 Urinary tract infection, site not specified (principal); N17.0 Acute kidney failure with tubular necrosis; N20.2 Calculus of kidney with calculus of ureter; I13.0 Hypertensive heart and chronic kidney disease with heart failure and stage 1 through stage 4 chronic kidney disease, or unspecified chronic kidney disease; I50.32 Chronic diastolic (congestive) heart failure; N17.9 Acute kidney failure, unspecified; S22.41XA Multiple fractures of ribs, right side, initial encounter for closed fracture; N18.3 Chronic kidney disease, stage 3 (moderate); E11.22 Type 2 diabetes mellitus with diabetic chronic kidney disease; E11.51 Type 2 diabetes mellitus with diabetic peripheral angiopathy without gangrene; F03.90 Unspecified dementia, unspecified severity, without behavioral disturbance, psychotic disturbance, mood disturbance, and anxiety; G89.29 Other chronic pain; I48.0 Paroxysmal atrial fibrillation; J44.9 Chronic obstructive pulmonary disease, unspecified; K57.30 Diverticulosis of large intestine without perforation or abscess without bleeding; K59.00 Constipation, unspecified; T50.2X5A Adverse effect of carbonic-anhydrase inhibitors, benzothiadiazides and other diuretics, initial encounter; Y92.89 Other specified places as the place of occurrence of the external cause; Z66 Do not resuscitate; Z79.01 Long term (current) use of anticoagulants; Z87.891 Personal history of nicotine dependence; Z90.49 Acquired absence of other specified parts of digestive tract; X58.XXXA Exposure to other specified factors, initial encounter; Y93.89 Activity, other specified; Y99.8 Other external cause status
CPT/HCPCS: 36415; 71045; 74176; 74178; 80048; 80053; 81001; 82550; 83615; 83690; 84484; 85025; 85027; 86140; 87077; 87086; 87186; 93005; 96361; 96374; 96375; J0696; J2270; J2405; J3010; Q9967; 97535; 99285-25; J7030

== ENCOUNTER 2021-02-20 02:30 | Inpatient (IN) | payer MEDICARE, OTHER ==
[~2021-02-20] VITALS: Ht 182.9 cm; Wt 91.5 kg
[~2021-02-20 02:30] MED LIST changes: +ALFU10TA4 PO; +ASPI325T8 PO; +CEFD300C PO; +CYCL10TA19 PO; +LIDO700A21 TP; +OXYC5TAB4 PO; +TAPE250T PO; -VANC1VIA3 IV; +VANC1VIA37 IV
--- NOTE | 2021-02-20 02:53 | PHYS DOC ---
Past History Past Medical History: Anxiety, Arthritis, Cancer, Dementia, Heart Disease, Hypertension, UTI Past Surgical History: Cholecystectomy, Other Additional Past Surgical Histo: hernia repair, Smoking: Non-smoker Alcohol Use: None Drug Use: None General Adult HPI: HPI: .. " I don't know.. " " I am here.. " " I do hurt..and burn.. down here in ...my ( points to groin). Patient is a 85 year old male who presents with with increased confusion since 1700 hrs. today. Patient denies any recent trauma. No history of fever or chills. Does have past medical history of bladder cancer with resection. Has had previous UT, hypertension, arthritis, chronic low back pain, suspect dementia with confusion -. No recent travel. No specific ill contacts. Does have obvious decubitus changes in groin area and marked venous stasis in legs. Patient vaccination status is unknown. Pt. normally follow s with Mike. Review of Systems: Review of Systems: Constitutional: Denies fever or chills Eyes: Denies change in visual acuity HENT: Denies nasal congestion or sore throat Respiratory: Denies cough or shortness of breath Cardiovascular: Denies chest pain or edema GI: Denies abdominal pain, nausea, vomiting, bloody stools or diarrhea : Denies dysuria. Incontinence of urine Musculoskeletal: Denies back pain or joint pain Integument: Denies rash Neurologic: Increased confusion at suspect history of dementia Endocrine: Denies polyuria or polydipsia Lymphatic: Denies swollen glands Psychiatric: Denies depression or anxiety. Does appear to have memory issues Family History: Family History: Noncontributory to presentation Current Medications: Current Meds: See nursing for home meds Allergies: Allergies: Allergies Coded Allergies Type Severity Reaction Last Updated Verified No Known Drug Allergies 01/23/19 No Physical Exam: PE: Constitutional: no acute distress, non-toxic appearance. [] HENT: Normocephalic, atraumatic, bilateral external ears normal, oropharynx moist, no oral exudates, nose normal. Very hard of hearing Eyes: PERRLA, EOMI, conjunctiva normal, no discharge. [] Neck: Normal range of motion, no tenderness, supple, no stridor. No appreciable bruits Cardiovascular: Tachycardia heart rate regular rhythm, no murmur [. PMI to the left] Lungs & Thorax: Bilateral breath sounds to apex with few scattered wheezes auscultation. Chris crackles in lower bases. Abdomen: Bowel sounds normal, soft, no tenderness, no masses, no pulsatile masses. Large midline lower pelvic abdomen scar. Breakdown of skin and groin. Incontinence. Skin: Warm, dry, no erythema, no rash. Poor turgor. Marked venous stasis changes in lower limbs. Decubitus changes and groin Back: Lumbar tenderness, no CVA tenderness. [] Extremities: No tenderness, no cyanosis, no clubbing, moves all limbs on request,, bilateral lower leg edema. Marked bilateral ankle edema and venous stasis changes Neurologic: Alert and oriented, knows name and that he is at a hospital and does recognize his son., Moves all extremities on request. Does have distal sensory, no new focal deficits noted per son, other increased confusion at sun down. Psychologic: Affect mildly anxious, judgement obvious impairment of memory and processing, mood normal. [] EKG: EKG: My interpretation EKG shows a sinus tachycardia 106 bpm. Does have bimodal P waves particularly in right ventricular lead. Has right axis deviation and right bundle branch block. Abnormal EKG. No findings of acute STEMI with contralateral changes. Time of this EKG is 256 hours [] Radiology/Procedures: Radiology/Procedures: [][place] [address] IMAGING REPORT Signed PATIENT: JAMES DAVID ACCOUNT: [id number] : 1935 LOCATION: ER AGE: 85 SEX: M EXAM STATUS: REG ER ORD. PHYSICIAN: MICHEAL MOYER MD REASON: altered mental status PROCEDURE: CT HEAD WO CONTRAST EXAM: CT HEAD WITHOUT CONTRAST. HISTORY: Altered mental status. TECHNIQUE: Computed tomography of the head was performed without intravenous contrast. One or more of the following individualized dose reduction techniques were utilized for this examination: 1. Automated exposure control. 2. Adjustment of the mA and/or kV according to patient size. 3. Use of iterative reconstruction technique. COMPARISON: 07/05/2019. FINDINGS: There is no intracranial hemorrhage. A chronic right basal ganglia infarct is new since the prior study. There is mild chronic microangiopathic white matter change elsewhere. Prominence of the lateral ventricles and hemispheric sulci indicates moderate atrophy. The visualized paranasal sinuses appear clear. There are changes of bilateral cataract surgery. The temporal bones are unremarkable. The calvarium reveals no suspicious lesions. There are atherosclerotic calcifications of the internal carotid and vertebral arteries. IMPRESSION: 1. No acute intracranial findings. 2. A right basal ganglia lacunar infarct appears chronic but is new since 07/05/2019. 3. Moderate atrophy. Electronically signed by: Mounika Jeffery MD (02/20/2021 4:03 AM) [facility] DICTATED AND SIGNED BY: SETH JEFFERY MD DATE: 02/20/21 040 CC: MICHEAL MOYER MD; EDVIN SOLO ~MTH0 0 Heart Score: C/O Chest Pain: No HEART Score for Chest Pain: HEART Score for Chest Pain Response (Comments) Value History Moderately Suspicious 1 ECG Nonspecific Repolarizatio 1 Age > 65 2 Risk Factors 1 or 2 Risk Factors 1 Troponin < Normal Limit 0 Total 5 Risk Factors: Risk Factors: DM, Current or recent (<one month) smoker, HTN, HLP, family history of CAD, obesity. Risk Scores: Score 0 - 3: 2.5% MACE over next 6 weeks - Discharge Home Score 4 - 6: 20.3% MACE over next 6 weeks - Admit for Clinical Observation Score 7 - 10: 72.7% MACE over next 6 weeks - Early Invasive Strategies Course & Med Decision Making: Course & Med Decision Making Pertinent Labs and Imaging studies reviewed. (See chart for details) Discussed presentation, testing and treatment plan with . Admit to his service with Cardiology consult. Nursing skin care consult. Will place maldonado for now because of marked skin break down in groin area. Impression: 1. Alter Mental Status - increased confusion since 1700 hrs. 2. Possible Hx. of Dementia- Marked memory issues 3. Hx UT 4. Hx. Bladder Cancer 5. Hx. Chronic Low Back Pain 6. Decub in groin and venous stasis changes legs 7. CVA- old- but not present on CT 07/05/19 8. CHF BNP 2,191. 9. Elevated CRP 13.1 10. Elevated D-dimer 1.66 11. Renal insufficiency creatinine 2.4 12. Mild leukocytosis 14.1 [] Dragon Disclaimer: Dragon Disclaimer: This electronic medical record was generated, in whole or in part, using a voice recognition dictation system. Departure Departure: Referrals: EDVIN SOLO (PCP) Yessenia Disclaimer This chart was dictated in whole or in part using Voice Recognition software in a busy, high-work load, and often noisy Emergency Department environment. It may contain unintended and wholly unrecognized errors or omissions. Dragon Disclaimer This chart was dictated in whole or in part using Voice Recognition software in a busy, high-work load, and often noisy Emergency Department environment. It may contain unintended and wholly unrecognized errors or omissions. MICHEAL MOYER MD Feb 20, 2021 02:53
[2021-02-20] MEDS ORDERED: IV RINGERS SOLUTION,LACTATED 1,000 ML IV SCH (03:30)
--- NOTE | 2021-02-20 03:32 | EKG ---
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
[2021-02-20 03:42] LABS: CALCIUM 9.2 mg/dL (8.5-10.1); CREATININE 2.4 mg/dL (0.7-1.3); GFR 25.9; POTASSIUM 4.7 mmol/L (3.5-5.1)
[2021-02-20 03:44] LABS: BASO # 0.1 x10^3/uL (0.0-0.2); BASO % 1 % (0-3); EOS # 0.1 x10^3/uL (0.0-0.7); EOS % 1 % (0-3); HEMATOCRIT 47.1 % (39.0-53.0); HEMOGLOBIN 15.4 g/dL (13.0-17.5); LYMPH # 1.3 x10^3/uL (1.0-4.8); LYMPH % 9 % (24-48); MEAN CORPUSCULAR HEMOGLOBIN 30 pg (25-35); MEAN CORPUSCULAR HGB CONC 33 g/dL (31-37); MEAN CORPUSCULAR VOLUME 93 fL (79-100); MONO % 7 % (0-9); NEUT # 11.7 x10^3uL (1.8-7.7); NEUT % 83 % (31-73); PLATELET COUNT 271 x10^3/uL (140-400); RED BLOOD COUNT 5.06 x10^6/uL (4.30-5.70); RED CELL DISTRIBUTION WIDTH 14.6 % (11.5-14.5); WHITE BLOOD COUNT 14.1 x10^3/uL (4.0-11.0)
[2021-02-20 03:53] LABS: ALBUMIN 3.4 g/dL (3.4-5.0); C REACTIVE PROTEIN 13.1 mg/L (0-3.3); DIRECT BILIRUBIN 0.1 mg/dL (0.0-0.2); MAGNESIUM 2.2 mg/dL (1.8-2.4); TOTAL BILIRUBIN 0.3 mg/dL (0.2-1.0); TOTAL PROTEIN 7.5 g/dL (6.4-8.2)
--- NOTE | 2021-02-20 04:04 | RAD ---
EXAM: CHEST ONE VIEW. HISTORY: Dyspnea. COMPARISON: 11/09/2019. FINDINGS: A frontal view of the chest is obtained. Bilateral perihilar predominant interstitial infiltrates are more focal in the right midlung. The ins piration is small. Small pleural effusions cannot be excluded. There is no pneumothorax. The heart is not enlarged. The aorta is calcified and tortuous. IMPRESSION: 1. Bilateral perihilar infiltrates suggesting atypical pneumonia. Electronically signed by: Mounika Jeffery MD (02/20/2021 4:01 AM) [facility]
--- NOTE | 2021-02-20 04:06 | RAD ---
EXAM: CT HEAD WITHOUT CONTRAST. HISTORY: Altered mental status. TECHNIQUE: Computed tomography of the head was performed without intravenous contrast. One or more of the following individualized dose reduction techniques were utilized for this examination: 1. Automated exposure control. 2. Adjustment of the mA and/or kV according to patient size. 3. Use of iterative reconstruction technique. COMPARISON: 07/05/2019. FINDINGS: There is no intracranial hemorrhage. A chronic right basal ganglia infarct is new since the prior study. There is mild chronic microangiopathic white matter change elsewhere. Prominence of the lateral ventricles and hemispheric sulci indicates moderate atrophy. The visualized paranasal sinuses appear clear. There are changes of bilateral cataract surgery. The t emporal bones are unremarkable. The calvarium reveals no suspicious lesions. There are atheroscleroti c calcifications of the internal carotid and vertebral arteries. IMPRESSION: 1. No acute intracranial findings. 2. A right basal ganglia lacunar infarct appears chronic but is new since 07/05/2019. 3. Moderate atrophy. Electronically signed by: Mounika Jeffery MD (02/20/2021 4:03 AM) [facility]
[2021-02-20 04:10] LABS: PLATELET CLUMP PRESENT; PLT ESTIMATE INCREASED (ADEQUATE)
[2021-02-20 04:11] LABS: ANISOCYTOSIS SLIGHT
[2021-02-20 04:58] LABS: INFLUENZA A PATIENT NEGATIVE (NEGATIVE); INFLUENZA B PATIENT NEGATIVE (NEGATIVE)
[2021-02-20] MEDS ORDERED: ASPIRIN CHEWABLE 81 MG TABLET. PO ONE (05:00)
[2021-02-20] MEDS ORDERED: APIXABAN 5 MG TABLET. PO SCH (05:00)
[2021-02-20] MEDS ORDERED: ANTI-COAG MONITOR BY PHARMACY. MC PRN (05:00)
[2021-02-20] MEDS ORDERED: FUROSEMIDE 40 MG/4 ML VIAL IVP ONE (05:00)
[2021-02-20 05:02] LABS: BACTERIA,URINE 0 /HPF (0-FEW); BILIRUBIN,URINE NEG (NEG); CLARITY,URINE CLEAR; COLOR,URINE YELLOW; GLUCOSE,URINE NEG (NEG); NITRITE,URINE NEG (NEG); UROBILINOGEN,URINE 0.2 mg/dL (0.2 mg/dL)
[2021-02-20] MEDS ORDERED: ACETAMINOPHEN 325 MG TABLET PO PRN (05:45)
[2021-02-20] MEDS ORDERED: ONDANSETRON PF 4 MG/2 ML VIAL. IVP PRN (05:45)
--- NOTE | 2021-02-20 07:32 | RAD ---
EXAM: Bilateral lower extremity venous Doppler. HISTORY: Bilateral lower extremity pain/swelling. COMPARISON: None. FINDINGS: Grayscale and Doppler analysis of the both lower extremity deep venous systems was performe d with graded compression and augmentation. The common femoral, greater saphenous, superficial femora l, popliteal and calf veins were assessed. There is no evidence of deep venous thrombosis. IMPRESSION: 1. No evidence of deep venous thrombosis. Electronically signed by: Mounika Jeffery MD (02/20/2021 7:30 AM) [facility]
[2021-02-20] MEDS ORDERED: ACETAMINOPHEN 325 MG TABLET PO ONE (09:00)
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
[2021-02-20 17:11] LABS: CALCIUM 8.7 mg/dL (8.5-10.1); CREATININE 2.4 mg/dL (0.7-1.3); GFR 25.9; POTASSIUM 4.5 mmol/L (3.5-5.1)
[2021-02-20] MEDS: RIVAROXABAN 10 MG TABLET. PO SCH (18:27)
[2021-02-20 18:50] VITALS: BP 123/68
[2021-02-20] MEDS ORDERED: diazePAM 5 MG TABLET. PO SCH ×2 (21:00)
[2021-02-20] MEDS: PATCH REMOVAL. MC SCH (21:00)
[2021-02-20] MEDS: CYCLOBENZAPRINE 10 MG TABLET. PO SCH (21:26)
[2021-02-20] MEDS: NIACIN ER 500 MG TABLET.ER PO SCH (21:26)
[2021-02-20] MEDS: SIMVASTATIN 40 MG TABLET. PO SCH (21:26)
[2021-02-20] MEDS: HYDROcodone/APAP 5/325MG 1 TAB TABLET PO PRN (21:27)
[2021-02-20 23:50] VITALS: BP 129/68
[2021-02-21 07:09] VITALS: BP 106/65
--- NOTE | 2021-02-21 08:50 | PDOC2 ---
LOUISE DENNIS CHANNELING MACHINE OPERATOR 02/21/21 0850: CARDIAC CONSULT DATE OF CONSULT DOS: DATE: 02/21/21 TIME: 08:40 REASON FOR CONSULT Reason for Consult CHF REFERRING PHYSICIAN Referring Physician Dr. Monteiro SOURCE Source: Chart review, Patient HPI History of Present Illness This is an 85 yo male who presented secondary to dysuria and increased confusion. Patient is a poor historian. Unable to tell me anything specific other than he was sent to the hospital. Thinks he may have been short of breath, but denies any present shortness of breath. Also denies any chest pain, palpitations, dizziness, diaphoresis, or nausea/vomiting. PAST MEDICAL HISTORY Cardiovascular: CAD, CHF, HTN, hyperipidemia CENTRAL NERVOUS SYSTEM: Dementia GI: Diverticulosis, GERD Heme/Onc: Anemia NOS, Other (DVT) Musculoskeletal: Osteoarthritis Renal/: Benign prostatic enlarg., Bladder Ca. (with resection ) Endocrine: Diabetes, Osteoporosis PAST SURGICAL HISTORY Past Surgical History: Cholecystectomy, Hernia Repair, Total knee replacement (left), Other (vasectomy ) FAMILY HISTORY Family History: Heart Disease, Hypertension SOCIAL HISTORY Smoke: Quit Drugs: None Lives: [facility] CURRENT MEDICATIONS Current Medications Current Medications Lactated Ringer's 1,000 ml @ 500 mls/hr Q2H IV Last administered on 02/20/21at 04:22; Start 02/20/21 at 03:30; Stop 02/20/21 at 05:29; Status DC Furosemide (Lasix) 40 mg 1X ONCE IVP Last administered on 02/20/21at 04:57; Start 02/20/21 at 05:00; Stop 02/20/21 at 05:01; Status DC Apixaban (Eliquis) 10 mg BID PO Last administered on 02/20/21at 04:55; Start 02/20/21 at 05:00; Stop 02/20/21 at 16:17; Status DC Aspirin (Aspirin Chewable) 81 mg 1X ONCE PO Last administered on 02/20/21at 04:55; Start 02/20/21 at 05:00; Stop 02/20/21 at 05:01; Status DC Info (Anti-Coagulation Monitoring By Pharmacy) 1 each PRN DAILY PRN MC PER PROTOCOL; Start 02/20/21 at 05:00 Ondansetron HCl (Zofran) 4 mg PRN Q4HRS PRN IVP NAUSEA/VOMITING; Start 02/20/21 at 05:45; Stop 02/21/21 at 05:44; Status DC Acetaminophen (Tylenol) 650 mg PRN Q4HRS PRN PO FEVER > 100.3'F; Start 02/20/21 at 05:45; Stop 02/21/21 at 05:44; Status DC Acetaminophen (Tylenol) 650 mg 1X ONCE PO Last administered on 02/20/21at 09:21; Start 02/20/21 at 09:00; Stop 02/20/21 at 09:04; Status DC Aspirin (Aspirin Chewable) 81 mg DAILY PO ; Start 02/21/21 at 09:00; Stop 02/20/21 at 18:42; Status DC Cyclobenzaprine HCl (Flexeril) 10 mg QHS PO Last administered on 02/20/21at 21:26; Start 02/20/21 at 21:00 Diazepam (Valium) 5 mg TID PO ; Start 02/20/21 at 21:00; Stop 02/20/21 at 18:42; Status DC Diltiazem HCl (Cardizem 24hr Cd) 120 mg DAILY PO ; Start 02/21/21 at 09:00; Stop 02/20/21 at 18:42; Status DC Finasteride (Proscar) 5 mg DAILY PO ; Start 02/21/21 at 09:00 Acetaminophen/ Hydrocodone Bitart (Lortab 5/325) 1 tab PRN Q6HRS PRN PO PAIN Last administered on 02/20/21at 21:27; Start 02/20/21 at 16:00 Lidocaine (Lidoderm) 1 patch DAILY TP ; Start 02/21/21 at 09:00 Metoprolol Succinate (Toprol Xl) 50 mg DAILYBFRLUN PO ; Start 02/21/21 at 11:30 Niacin (Slo-Niacin) 500 mg QHS PO Last administered on 02/20/21at 21:26; Start 02/20/21 at 21:00 Simvastatin (Zocor) 40 mg HS PO Last administered on 02/20/21at 21:26; Start 02/20/21 at 21:00 Non-Formulary Medication (Alfuzosin Hcl ) 1 tab DAILY PO ; Start 02/21/21 at 09:00; Stop 02/20/21 at 18:42; Status DC Ascorbic Acid (Vitamin C) 250 mg DAILY PO ; Start 02/21/21 at 09:00 Non-Formulary Medication (Bumetanide ) 1 tab DAILY PO ; Start 02/21/21 at 09:00 ; Stop 02/20/21 at 18:42; Status DC Multivitamins/ Calcium (Thera-M Plus) 1 tab DAILY PO ; Start 02/21/21 at 09:00 Rivaroxaban (Xarelto) 20 mg DAILYWSUP PO Last administered on 02/20/21at 18:27; Start 02/20/21 at 17:00 Non-Formulary Medication (Zinc Sulfate (Orazinc)) 50 mg DAILYWLUN PO ; Start 02/21/21 at 12:00; Stop 02/20/21 at 18:42; Status DC Tamsulosin HCl (Flomax) 0.4 mg QHS PO ; Start 02/21/21 at 21:00 Bumetanide (Bumex) 2 mg DAILY PO ; Start 02/21/21 at 09:00 Zinc Sulfate (Orazinc) 220 mg DAILYWLUN PO ; Start 02/21/21 at 12:00 Aspirin (Aspirin Chewable) 81 mg DAILY PO ; Start 02/21/21 at 09:00 Diazepam (Valium) 5 mg TID PO ; Start 02/20/21 at 21:00; Status UNV Diltiazem HCl (Cardizem 24hr Cd) 120 mg DAILY PO ; Start 02/21/21 at 09:00 Miscellaneous (Lidoderm Patch Removal) 1 ea QHS MC ; Start 02/20/21 at 21:00 Active Scripts Active Oxycodone Hcl Immed.release (Oxycodone Hcl) 5 Mg Tablet 5 Mg PO PRN Q4HRS PRN 7 Days Cefdinir 300 Mg Capsule 1 Cap PO BID 5 Days Diltiazem 24HR Cd (Diltiazem Hcl) 120 Mg Cap.er.24h 1 Cap PO DAILY 30 Days Valium (Diazepam) 5 Mg Tablet 5 Mg PO TID 5 Days Please use one tablet every 8 hours as needed for muscle spasms. Do not drink alcohol or use other narcotics with this medication. Hydrocodone-Apap 5-325 (Hydrocodone Bit/Acetaminophen) 1 Each Tablet 1 Tab PO Q6H PRN 15 Days Reported Bumetanide 2 Mg Tablet 1 Tab PO DAILY LAST DOSE GIVEN: DATE: TODAY TIME: AM NEXT DOSE DUE: DATE: ORR TIME: AM Lidocaine PATCH (Lidocaine) 1 Each Adh..patch 1 Each TP DAILY APPLY IN THE MORNING/ REMOVE AT NIGHT LAST DOSE GIVEN: DATE: TIME: AM NEXT DOSE DUE: DATE: TIME: AM Cyclobenzaprine Hcl 10 Mg Tablet 1 Tab PO QHS LAST DOSE GIVEN: DATE: YESTER TIME: AT BEDTIME NEXT DOSE DUE: DATE: TIME: AT BEDTIME Nucynta Er (Tapentadol Hcl) 250 Mg Tab.er.12h 150 Mg PO TID 30 Days NOT GIVEN IN THE HOSPITAL NEXT DOSE DUE: DATE: TIME: IF AND WHEN NEEDED Alfuzosin Hcl 10 Mg Tab.er.24h 1 Tab PO DAILY LAST DOSE GIVEN: DATE: TIME: AM NEXT DOSE DUE: DATE: TIME: AM Uroxatral (Alfuzosin HCl) 10 Mg Tab.er.24h 1 Tab PO DAILY 30 Days LAST DOSE GIVEN: DATE: TIME: AM NEXT DOSE DUE: DATE: TIME: AM Niaspan (Niacin) 500 Mg Tab.er.24h 1 Tab PO QHS LAST DOSE GIVEN: DATE: TIME: AT BEDTIME NEXT DOSE DUE: DATE: TIME: AT BEDTIME Bumetanide 2 Mg Tablet 1 Tab PO DAILY LAST DOSE GIVEN: DATE: TIME: AM NEXT DOSE DUE: DATE: TIME: AM Aspirin 325 Mg Tablet 1 Tab PO DAILY LAST DOSE GIVEN: DATE: TIME: AM NEXT DOSE DUE: DATE: TIME: AM Metoprolol Succinate ( Xl ) (Metoprolol Succinate) 50 Mg Tab.er.24h 1 Tab PO DAILYBFRLUN LAST DOSE GIVEN: DATE: TODAY TIME: WITH LUNCH NEXT DOSE DUE: DATE: TOMORROW TIME: WITH LUNCH Uroxatral (Alfuzosin HCl) 10 Mg Tab.er.24h 10 Mg PO DAILYWSUP NOT GIVEN TODAY NEXT DOSE: TODAY WITH DINNER Orazinc (Zinc Sulfate) 110 Mg Tablet 50 Mg PO DAILYWLUN LAST DOSE GIVEN: DATE: TIME: AM NEXT DOSE DUE: DATE: TOMORROW TIME: WITH LUNCH Ascorbic Acid 250 Mg Tablet 250 Mg PO DAILY LAST DOSE GIVEN: DATE: TIME: AM NEXT DOSE DUE: DATE: ORROW TIME: AM Bumetanide 2 Mg Tablet 2 Mg PO DAILY LAST DOSE GIVEN: DATE: TODAY TIME: AM NEXT DOSE DUE: DATE: TOMORR TIME: AM Proscar (Finasteride) 5 Mg Tablet 5 Mg PO DAILY LAST DOSE GIVEN: DATE: TODAY TIME: AM NEXT DOSE DUE: DATE: TOMORR TIME: AM Multi Vitamin Daily (Multivitamin) 1 Each Tablet 1 Tab PO DAILY LAST DOSE GIVEN: DATE: TODAY TIME: AM NEXT DOSE DUE: DATE: TOMORR TIME: AM Aspirin 81 Mg Tab.chew 81 Mg PO DAILY LAST DOSE GIVEN: DATE: TODAY TIME: AM NEXT DOSE DUE: DATE: TOMORR TIME: AM Xarelto (Rivaroxaban) 20 Mg Tablet 20 Mg PO DAILY16 LAST DOSE GIVEN: DATE: YESTER TIME: WITH DINNER NEXT DOSE DUE: DATE: TODAY TIME: WITH DINNER Zocor (Simvastatin) 40 Mg Tablet 40 Mg PO HS LAST DOSE GIVEN: DATE: YES TIME: AT BEDTIME NEXT DOSE DUE: DATE: TODAY TIME: AT BEDTIME Niaspan (Niacin) 500 Mg Tab.er.24h 500 Mg PO HS LAST DOSE GIVEN: DATE: YESTER TIME: AT BEDTIME NEXT DOSE DUE: DATE: TODAY TIME: AT BEDTIME ALLERGIES Allergies: Coded Allergies: No Known Drug Allergies (Unverified , 01/23/19) ROS Review of Systems 14 point ROS conducted with pertinent positives noted above in HPI, although limited due to dementia PHYSICAL EXAM General: Alert, Cooperative, No acute distress HEENT: Atraumatic, Mucous membr. moist/pink Lungs: Clear to auscultation Heart: Regular rate Abdomen: Soft, No tenderness Extremities: No edema Skin: No breakdown Neuro: Normal speech, Sensation intact Psych/Mental Status: Mood NL MUSCULOSKELETAL: Osteoarthritic changes both hands VITALS Vital Signs Vital Signs Date Time Temp Pulse Resp B/P (MAP) Pulse Ox O2 Delivery O2 Flow Rate FiO2 02/21/21 07:09 98.2 85 18 106/65 (79) 96 Room Air LABS LABS Laboratory Tests Test 02/20/21 02:53 02/20/21 04:05 02/20/21 04:12 02/20/21 07:55 White Blood Count 14.1 x10^3/uL (4.0-11.0) Red Blood Count 5.06 x10^6/uL (4.30-5.70) Hemoglobin 15.4 g/dL (13.0-17.5) Hematocrit 47.1 % (39.0-53.0) Mean Corpuscular Volume 93 fL (79-100) Mean Corpuscular Hemoglobin 30 pg (25-35) Mean Corpuscular Hemoglobin Concent 33 g/dL (31-37) Red Cell Distribution Width 14.6 % (11.5-14.5) Platelet Count 271 x10^3/uL (140-400) Neutrophils (%) (Auto) 83 % (31-73) Lymphocytes (%) (Auto) 9 % (24-48) Monocytes (%) (Auto) 7 % (0-9) Eosinophils (%) (Auto) 1 % (0-3) Basophils (%) (Auto) 1 % (0-3) Neutrophils # (Auto) 11.7 x10^3uL (1.8-7.7) Lymphocytes # (Auto) 1.3 x10^3/uL (1.0-4.8) Monocytes # (Auto) 1.0 x10^3/uL (0.0-1.1) Eosinophils # (Auto) 0.1 x10^3/uL (0.0-0.7) Basophils # (Auto) 0.1 x10^3/uL (0.0-0.2) Platelet Estimate Increased (ADEQUATE) Platelet Clumps, EDTA Present Large Platelets Few Anisocytosis Slight Prothrombin Time 10.4 SEC (9.4-11.4) Prothromb Time International Ratio 1.0 (0.9-1.1) Activated Partial Thromboplast Time 25 SEC (23-33) D-Dimer (Sandra) 1.66 mg/L (0.00-0.50) Sodium Level 139 mmol/L (136-145) Potassium Level 4.7 mmol/L (3.5-5.1) Chloride Level 101 mmol/L (98-107) Carbon Dioxide Level 26 mmol/L (21-32) Anion Gap 12 (6-14) Blood Urea Nitrogen 22 mg/dL (8-26) Creatinine 2.4 mg/dL (0.7-1.3) Estimated GFR (Cockcroft-Gault) 25.9 Glucose Level 131 mg/dL (70-99) Calcium Level 9.2 mg/dL (8.5-10.1) Magnesium Level 2.2 mg/dL (1.8-2.4) Total Bilirubin 0.3 mg/dL (0.2-1.0) Direct Bilirubin 0.1 mg/dL (0.0-0.2) Aspartate Amino Transf (AST/SGOT) 17 U/L (15-37) Alanine Aminotransferase (ALT/SGPT) 16 U/L (16-63) Alkaline Phosphatase 85 U/L (46-116) Creatine Kinase 200 U/L (39-308) Troponin I High Sensitivity 12 ng/L (4-75) 12 ng/L (4-75) C-Reactive Protein 13.1 mg/L (0-3.3) JV-Sza-F-Type Natriuretic Peptide 2191 pg/mL (0-449) Total Protein 7.5 g/dL (6.4-8.2) Albumin 3.4 g/dL (3.4-5.0) Lipase 110 U/L (73-393) Thyroid Stimulating Hormone (TSH) 11.757 uIU/mL (0.358-3.740) Urine Collection Type Unknown Urine Color Yellow Urine Clarity Clear Urine pH 5.5 Urine Specific [place] 1.020 Urine Protein Neg (NEG-TRACE) Urine Glucose (UA) Neg mg/dL (NEG) Urine Ketones (Stick) Neg mg/dL (NEG) Urine Blood Neg (NEG) Urine Nitrite Neg (NEG) Urine Bilirubin Neg (NEG) Urine Urobilinogen Dipstick 0.2 mg/dL (0.2 mg/dL) Urine Leukocyte Esterase Neg (NEG) Urine RBC 1-2 /HPF (0-2) Urine WBC 1-4 /HPF (0-4) Urine Squamous Epithelial Cells None /LPF Urine Bacteria 0 /HPF (0-FEW) Coronavirus (COVID-19)(PCR) Not detected (NOT DETECTD) Influenza Type A (Rapid) Negative (NEGATIVE) Influenza Type B (Rapid) Negative (NEGATIVE) SARS-CoV-2 Antigen (Rapid) Negative (NEGATIVE) Test 02/20/21 16:45 02/20/21 20:35 Sodium Level 139 mmol/L (136-145) Potassium Level 4.5 mmol/L (3.5-5.1) Chloride Level 102 mmol/L (98-107) Carbon Dioxide Level 29 mmol/L (21-32) Anion Gap 8 (6-14) Blood Urea Nitrogen 31 mg/dL (8-26) Creatinine 2.4 mg/dL (0.7-1.3) Estimated GFR (Cockcroft-Gault) 25.9 Glucose Level 97 mg/dL (70-99) Calcium Level 8.7 mg/dL (8.5-10.1) Glucose (Fingerstick) 109 mg/dL (70-99) ECHOCARDIOGRAM Echocardiogram <Conclusion> The left ventricular systolic function is normal and the ejection fraction is within normal range. The Ejection Fraction is 55-60%. There is grossly normal LV segmental wall motion. There is no significant aortic valvular stenosis by doppler but the valve appears visually to be at least moderately stenotic. Doppler and Color Flow revealed trace tricuspid regurgitation. The PA pressure was estimated at 36 mmHg. DATE: 06/06/18 1421 ASSESSMENT/PLAN Assessment/Plan 1. GHULAM 2. Dyspnea with probable PNA 2. Acute on chronic diastolic CHF; based upon elevated NT Pro BNP. s/p IV Lasix. appear compensated 3. CAD s/p PCI/stenting. clinically stable 4. Hypertension; controlled 5. Hyperlipidemia 6. Encephalopathy with underlying dementia 7. Chronic venous insufficiency and recurrent DVT s/p IVC filter. on chronic OAC with Xarelto 8. H/o CVA 9. Hypothyroidism; TSH 11. as per IM Recommendations Hold Bumex for now Resume secondary prevention Plan outpatient echo and ischemic evaluation Ongoing antibiotic therapy as per IM Supportive care CORETTA CARDOZA MD 02/22/21 0520: CARDIAC CONSULT ASSESSMENT/PLAN Assessment/Plan Patient seen and examined. Agree with SHEET ROCK APPLICATOR's assessment and plan. MS changes probably metabolic encephalopathy Continue current treatment for pneumonia Acute on chronic diastolic HF better compensated CAD status clinically stable Plan echo and ischemic evaluation as outpatient Continue management of acute kidney injury per IM Thank you for your consultation LOUISE DENNIS APRN Feb 21, 2021 08:50 CORETTA CARDOZA MD Feb 22, 2021 05:20
[2021-02-21] MEDS ORDERED: LIDOCAINE (700MG/PATCH) PATCH. TP SCH (09:00)
[2021-02-21] MEDS ORDERED: BUMETANIDE 1 MG TABLET PO SCH (09:00)
[2021-02-21] MEDS ORDERED: ASPIRIN CHEWABLE 81 MG TABLET. PO SCH (09:00)
[2021-02-21] MEDS ORDERED: NON FORMULARY ITEM (Bumetanide 1 TAB) PO SCH (09:00)
[2021-02-21] MEDS ORDERED: ALFUZOSIN HCL PO SCH (09:00)
[2021-02-21] MEDS: FINASTERIDE 5 MG TABLET. PO SCH (10:00)
[2021-02-21] MEDS: MULTIVITAMIN with MINERAL TABLET. PO SCH (10:00)
[2021-02-21] MEDS: ASCORBIC ACID 500 MG TABLET PO SCH (10:01)
[2021-02-21] MEDS: ASPIRIN CHEWABLE 81 MG TABLET. PO SCH (10:02)
[2021-02-21 10:11] LABS: ALBUMIN 2.9 g/dL (3.4-5.0); ALBUMIN/GLOBULIN RATIO 0.7 (1.0-1.7); CALCIUM 8.3 mg/dL (8.5-10.1); CREATININE 1.9 mg/dL (0.7-1.3); GFR 33.9; MAGNESIUM 2.2 mg/dL (1.8-2.4); POTASSIUM 3.8 mmol/L (3.5-5.1); TOTAL BILIRUBIN 0.8 mg/dL (0.2-1.0); TOTAL PROTEIN 7.2 g/dL (6.4-8.2)
[2021-02-21 10:34] LABS: BASO # 0.1 x10^3/uL (0.0-0.2); BASO % 1 % (0-3); EOS # 0.2 x10^3/uL (0.0-0.7); EOS % 3 % (0-3); HEMATOCRIT 42.7 % (39.0-53.0); HEMOGLOBIN 14.1 g/dL (13.0-17.5); LYMPH # 1.3 x10^3/uL (1.0-4.8); LYMPH % 15 % (24-48); MEAN CORPUSCULAR HEMOGLOBIN 30 pg (25-35); MEAN CORPUSCULAR HGB CONC 33 g/dL (31-37); MEAN CORPUSCULAR VOLUME 92 fL (79-100); MONO # 0.7 x10^3/uL (0.0-1.1); MONO % 7 % (0-9); NEUT # 6.7 x10^3uL (1.8-7.7); NEUT % 75 % (31-73); PLATELET COUNT 226 x10^3/uL (140-400); RED BLOOD COUNT 4.63 x10^6/uL (4.30-5.70); RED CELL DISTRIBUTION WIDTH 14.5 % (11.5-14.5)
[2021-02-21 11:04] VITALS: BP 124/69
[2021-02-21] MEDS ORDERED: METOPROLOL SUCC 24HR ER 50 MG TAB.ER.24H. PO SCH (11:30)
[2021-02-21] MEDS ORDERED: ZINC SULFATE 220 MG CAPSULE. PO SCH (12:00)
[2021-02-21] MEDS ORDERED: ZINC SULFATE 50 MG PO SCH (12:00)
[2021-02-21 15:00] VITALS: BP 107/65
[2021-02-21] MEDS ORDERED: AZITHROMYCIN 250 MG TABLET. PO ONE (16:00)
--- NOTE | 2021-02-21 16:21 | RAD ---
EXAM: Chest CT without intravenous contrast. HISTORY: Pneumonia. TECHNIQUE: Computed tomographic images of the chest were obtained without contrast. Multiplanar refor matting was performed. *One or more of the following individualized dose reduction techniques were utilized for this examina tion: 1. Automated exposure control. 2. Adjustment of the mA and/or kV according to patient size. 3. Use of iterative reconstruction technique. COMPARISON: 07/05/2019 and 11/11/2019. FINDINGS: There are stable trace right and small left pleural effusions and basilar pleural thickenin g. There is cardiomegaly. There is calcification of the pericardium. There is calcified atherosclerot ic plaque involving the coronary arteries. There is calcification of the aortic valve. There is mild emphysema. There is biapical pleural nodularity and adjacent groundglass opacity due to scarring. The re is no pneumothorax. There is scarring or atelectasis within the anterior right middle lobe. There is left greater than right basilar and posterior dependent atelectasis. There is no consolidation. There is no suspicious pulmonary nodule. There is colonic diverticulosis. There are simple appearing left renal cysts, partially included on the [id number]. Follow-up is no t routinely performed for simple cysts. There is degenerative change involving the spine. There is no acute osseous finding. There is a minimal chronic superimposed endplate depression at T6. There are chronic fracture deformity of multiple right ribs. IMPRESSION: 1. Emphysema with bilateral posterior dependent and basilar atelectasis and multifocal pleural parenc hymal scarring. There are stable trace right and small left pleural effusions with pleural thickening . 2. Stable cardiomegaly and calcification of the pericardium. 3. Multiple simple appearing left renal cysts. 4. Colonic diverticulosis. Electronically signed by: Nydia Murphy MD (02/21/2021 4:19 PM) [id number]
[2021-02-21] MEDS ORDERED: LIDOCAINE (700MG/PATCH) PATCH. TP PRN (17:15)
[2021-02-21] MEDS: RIVAROXABAN 10 MG TABLET. PO SCH (17:27)
[2021-02-21 19:54] VITALS: BP 105/66
[2021-02-21] MEDS ORDERED: TAMSULOSIN 0.4 MG CAP.ER.24H. PO SCH (21:00)
[2021-02-21] MEDS: PATCH REMOVAL. MC SCH (21:00)
[2021-02-21] MEDS: NIACIN ER 500 MG TABLET.ER PO SCH (21:19)
[2021-02-21] MEDS: CYCLOBENZAPRINE 10 MG TABLET. PO SCH (21:19)
[2021-02-21] MEDS: SIMVASTATIN 40 MG TABLET. PO SCH (21:19)
[2021-02-21] MEDS: HYDROcodone/APAP 5/325MG 1 TAB TABLET PO PRN (21:19)
[2021-02-22 00:06] LABS: THYROXINE 5.3 ug/dL (4.5-12.0)
--- NOTE | 2021-02-22 00:39 | PN ---
DATE: 02/21/2021 SUBJECTIVE: The patient is sitting comfortably in his chair, in no apparent distress. On questioning him, he denied any complaint. The nursing staff stated that he was confused overnight. He seemed to be much better today. He was able to ambulate without assistance or assistive devices and he likes to go home. PHYSICAL EXAMINATION: GENERAL: When I examined him, he looked well and there was no pallor, jaundice, cyanosis or thyromegaly. No jugular venous distention. No limb edema. VITAL SIGNS: His heart rate was 75, blood pressure was 124/69, temperature was 98, respiratory rate was 18 and oxygen saturation was 97% on room air. HEAD, EYES, EARS, NOSE, AND THROAT: Normocephalic, atraumatic. NECK: Supple. HEART: Showed normal first and second heart sounds. No gallop, rub or murmur. CHEST: Clear to auscultation, no crepitation or rhonchi. ABDOMEN: Distended, soft, nontender. NEUROLOGIC: He was grossly intact. His intake over the last 24 hours and output are incompletely recorded. LABORATORY DATA: This morning showed a white cell count is down to 9000, hemoglobin 14, hematocrit 42, MCV 92 and platelet count of 226,000. His chemistry showed a serum sodium 139, potassium 3.8, chloride was 104, bicarb of 24, anion gap of 11, BUN 29, creatinine 1.9. Estimated GFR was 33 mL per minute. His glucose was 121, calcium was 8.3. Magnesium was 2.2. Total bilirubin, AST, ALT, alkaline phosphatase were normal. Total protein was 7.2, albumin was 2.9. His prothrombin time, INR and APTT normal. D-dimer was 1.66. Urinalysis essentially unremarkable. His influenza A and B negative and coronavirus by PCR was negative. His blood cultures showed no growth after 24 hours. ASSESSMENT: 1. Altered mental status, resolved. 2. Acute on chronic kidney injury, improving. 3. Acute diastolic congestive heart failure. 4. Coronary artery disease status post PCI and stenting. 5. Hypertension. 6. Hyperlipidemia. The patient has also chronic venous insufficiency with recurrent DVT, status post IVC filter, history of cerebrovascular accident. He is hypothyroid with TSH of 11 point something. PLAN: My plan is to arrange for a CT scan of the chest without contrast. I will add also IV antibiotic in the form of Zithromax and Rocephin. I would also add finasteride as he clearly has benign prostatic hypertrophy and he unfortunately took his catheter out and he now has marked frequency. I will repeat his lab work, and if he remains stable, he might be able to be discharged home tomorrow. SOMMER DR: Luz Eelna TID: [id number]
[2021-02-22 01:32] VITALS: BP 116/56
[2021-02-22 06:05] VITALS: BP 100/65
[2021-02-22 07:18] LABS: BASO # 0.1 x10^3/uL (0.0-0.2); BASO % 1 % (0-3); EOS # 0.3 x10^3/uL (0.0-0.7); EOS % 4 % (0-3); HEMATOCRIT 40.2 % (39.0-53.0); HEMOGLOBIN 13.3 g/dL (13.0-17.5); LYMPH # 1.8 x10^3/uL (1.0-4.8); LYMPH % 20 % (24-48); MEAN CORPUSCULAR HEMOGLOBIN 31 pg (25-35); MEAN CORPUSCULAR HGB CONC 33 g/dL (31-37); MEAN CORPUSCULAR VOLUME 93 fL (79-100); MONO # 0.9 x10^3/uL (0.0-1.1); MONO % 10 % (0-9); NEUT # 5.9 x10^3uL (1.8-7.7); NEUT % 66 % (31-73); PLATELET COUNT 186 x10^3/uL (140-400); RED BLOOD COUNT 4.33 x10^6/uL (4.30-5.70); RED CELL DISTRIBUTION WIDTH 14.4 % (11.5-14.5)
[2021-02-22 07:32] LABS: ALBUMIN 2.6 g/dL (3.4-5.0); ALBUMIN/GLOBULIN RATIO 0.7 (1.0-1.7); CALCIUM 8.3 mg/dL (8.5-10.1); CREATININE 1.3 mg/dL (0.7-1.3); GFR 52.6; POTASSIUM 4.2 mmol/L (3.5-5.1); TOTAL BILIRUBIN 0.5 mg/dL (0.2-1.0); TOTAL PROTEIN 6.6 g/dL (6.4-8.2)
[2021-02-22] MEDS: FINASTERIDE 5 MG TABLET. PO SCH (08:15)
[2021-02-22] MEDS: MULTIVITAMIN with MINERAL TABLET. PO SCH (08:15)
[2021-02-22] MEDS: ASCORBIC ACID 500 MG TABLET PO SCH (08:16)
[2021-02-22] MEDS: ASPIRIN CHEWABLE 81 MG TABLET. PO SCH (08:16)
[2021-02-22 08:19] VITALS: BP 108/64
--- NOTE | 2021-02-22 08:23 | PDOC ---
CARDIO Progress Notes Date & Time Date of Service DATE: 02/22/21 TIME: 08:23 Time of Evaluation 08:23 Subjective Notes No chest pain, shortness of breath. feeling well Vitals Vitals Vital Signs Date Time Temp Pulse Resp B/P (MAP) Pulse Ox O2 Delivery O2 Flow Rate FiO2 02/22/21 06:05 97.4 82 18 100/65 (77) 90 Room Air Weight Weight [ ] Input and Output I.O. Intake and Output 02/22/21 07:00 Intake Total 770 ml Output Total 200 ml Balance 570 ml Intake Oral 720 ml IV Total 50 ml Output Urine Total 200 ml # Voids 2 Laboratory Labs Laboratory Tests Test 02/20/21 16:45 02/20/21 20:35 02/21/21 09:35 02/21/21 16:45 Sodium Level 139 mmol/L (136-145) 139 mmol/L (136-145) Potassium Level 4.5 mmol/L (3.5-5.1) 3.8 mmol/L (3.5-5.1) Chloride Level 102 mmol/L (98-107) 104 mmol/L (98-107) Carbon Dioxide Level 29 mmol/L (21-32) 24 mmol/L (21-32) Anion Gap 8 (6-14) 11 (6-14) Blood Urea Nitrogen 31 mg/dL (8-26) 29 mg/dL (8-26) Creatinine 2.4 mg/dL (0.7-1.3) 1.9 mg/dL (0.7-1.3) Estimated GFR (Cockcroft-Gault) 25.9 33.9 Glucose Level 97 mg/dL (70-99) 121 mg/dL (70-99) Calcium Level 8.7 mg/dL (8.5-10.1) 8.3 mg/dL (8.5-10.1) Glucose (Fingerstick) 109 mg/dL (70-99) White Blood Count 9.0 x10^3/uL (4.0-11.0) Red Blood Count 4.63 x10^6/uL (4.30-5.70) Hemoglobin 14.1 g/dL (13.0-17.5) Hematocrit 42.7 % (39.0-53.0) Mean Corpuscular Volume 92 fL (79-100) Mean Corpuscular Hemoglobin 30 pg (25-35) Mean Corpuscular Hemoglobin Concent 33 g/dL (31-37) Red Cell Distribution Width 14.5 % (11.5-14.5) Platelet Count 226 x10^3/uL (140-400) Neutrophils (%) (Auto) 75 % (31-73) Lymphocytes (%) (Auto) 15 % (24-48) Monocytes (%) (Auto) 7 % (0-9) Eosinophils (%) (Auto) 3 % (0-3) Basophils (%) (Auto) 1 % (0-3) Neutrophils # (Auto) 6.7 x10^3uL (1.8-7.7) Lymphocytes # (Auto) 1.3 x10^3/uL (1.0-4.8) Monocytes # (Auto) 0.7 x10^3/uL (0.0-1.1) Eosinophils # (Auto) 0.2 x10^3/uL (0.0-0.7) Basophils # (Auto) 0.1 x10^3/uL (0.0-0.2) BUN/Creatinine Ratio 15 (6-20) Magnesium Level 2.2 mg/dL (1.8-2.4) Total Bilirubin 0.8 mg/dL (0.2-1.0) Aspartate Amino Transf (AST/SGOT) 23 U/L (15-37) Alanine Aminotransferase (ALT/SGPT) 12 U/L (16-63) Alkaline Phosphatase 79 U/L (46-116) Total Protein 7.2 g/dL (6.4-8.2) Albumin 2.9 g/dL (3.4-5.0) Albumin/Globulin Ratio 0.7 (1.0-1.7) Procalcitonin 0.11 ng/mL (0.00-0.10) Free Thyroxine 1.11 ng/dL (0.76-1.46) Thyroxine (T4) 5.3 ug/dL (4.5-12.0) Total Triiodothyronine 95 ng/dL (71-180) Test 02/22/21 06:09 White Blood Count 9.0 x10^3/uL (4.0-11.0) Red Blood Count 4.33 x10^6/uL (4.30-5.70) Hemoglobin 13.3 g/dL (13.0-17.5) Hematocrit 40.2 % (39.0-53.0) Mean Corpuscular Volume 93 fL (79-100) Mean Corpuscular Hemoglobin 31 pg (25-35) Mean Corpuscular Hemoglobin Concent 33 g/dL (31-37) Red Cell Distribution Width 14.4 % (11.5-14.5) Platelet Count 186 x10^3/uL (140-400) Neutrophils (%) (Auto) 66 % (31-73) Lymphocytes (%) (Auto) 20 % (24-48) Monocytes (%) (Auto) 10 % (0-9) Eosinophils (%) (Auto) 4 % (0-3) Basophils (%) (Auto) 1 % (0-3) Neutrophils # (Auto) 5.9 x10^3uL (1.8-7.7) Lymphocytes # (Auto) 1.8 x10^3/uL (1.0-4.8) Monocytes # (Auto) 0.9 x10^3/uL (0.0-1.1) Eosinophils # (Auto) 0.3 x10^3/uL (0.0-0.7) Basophils # (Auto) 0.1 x10^3/uL (0.0-0.2) Sodium Level 143 mmol/L (136-145) Potassium Level 4.2 mmol/L (3.5-5.1) Chloride Level 107 mmol/L (98-107) Carbon Dioxide Level 26 mmol/L (21-32) Anion Gap 10 (6-14) Blood Urea Nitrogen 28 mg/dL (8-26) Creatinine 1.3 mg/dL (0.7-1.3) Estimated GFR (Cockcroft-Gault) 52.6 BUN/Creatinine Ratio 22 (6-20) Glucose Level 103 mg/dL (70-99) Calcium Level 8.3 mg/dL (8.5-10.1) Total Bilirubin 0.5 mg/dL (0.2-1.0) Aspartate Amino Transf (AST/SGOT) 19 U/L (15-37) Alanine Aminotransferase (ALT/SGPT) 12 U/L (16-63) Alkaline Phosphatase 63 U/L (46-116) Total Protein 6.6 g/dL (6.4-8.2) Albumin 2.6 g/dL (3.4-5.0) Albumin/Globulin Ratio 0.7 (1.0-1.7) Microbiology Micro Microbiology 02/20/21 Blood Culture - Preliminary, Resulted NO GROWTH AFTER 2 DAYS... Physical Exams HEENT: Neck Supple W Full Motion Chest: Symmetric Lungs: Clear to Auscultation Heart: RRR Abdomen: Soft N/T Extremities: No Edema Neurology: alert, oriented, follow commands Assessment Assessment 1. GHULAM; improved 2. Dyspnea with probable PNA 2. Acute on chronic diastolic CHF; based upon elevated NT Pro BNP. s/p IV Lasix. appear compensated 3. CAD s/p PCI/stenting. clinically stable 4. Hypertension; controlled 5. Hyperlipidemia 6. Encephalopathy with underlying dementia 7. Chronic venous insufficiency and recurrent DVT s/p IVC filter. on chronic OAC with Xarelto 8. H/o CVA 9. Hypothyroidism; TSH 11. as per IM Recommendations Secondary prevention Plan outpatient echo and ischemic evaluation Ongoing antibiotic therapy as per IM Supportive care LOUISE DENNIS APRN Feb 22, 2021 08:23
[2021-02-22] MEDS ORDERED: AZITHROMYCIN 250 MG TABLET. PO SCH (09:00)
[2021-02-22] MEDS ORDERED: LACTOBACILLUS RHAMNOSUS GG 1 CAPSULE. PO SCH (09:00)
--- NOTE | 2021-02-22 12:14 | DS ---
DATE OF DISCHARGE: 02/22/2021 ATTENDING PHYSICIAN: Dr. Dunbar. FINAL DISCHARGE DIAGNOSES: 1. Altered mentation, resolved. 2. Acute on chronic kidney injury, improved. 3. Acute diastolic congestive heart failure, compensated. 4. Known coronary artery disease. 5. Profound dementia. 6. Hypertension. 7. Hyperlipidemia. HISTORY AND PHYSICAL: The patient is an 85-year-old gentleman with multiple medical issues. He was admitted with altered mentation. His son is the primary instrument worker. He lives at home. PHYSICAL EXAMINATION: Please see the dictated note. PERTINENT LABORATORY AND X-RAY STUDIES: Admission hemoglobin was 15.4 grams, white count 14,000, repeated was down to 9000. Electrolytes within normal range. Potassium 4.2 mEq, creatinine was 1.9 mg/dL. With gentle hydration and holding his diuretic, it is down to 1.3 mg/dL. Cardiac enzymes are negative for coronary ischemia. Transaminases were normal. COURSE IN HOSPITAL: The patient was admitted, meds were simplified. Formal Cardiology consultation was entertained. Their recommendation is on the chart. He was doing better. We contacted the son, he is going to take care of him at home. In the long run, he needs a higher level of care, but they can decide on doing that after the holidays. On the third hospital day, the patient was then discharged from the hospital. He will continue his scheduled Uroxatral, ascorbic acid, aspirin, bumetanide, cefdinir until complete, diazepam, diltiazem, Proscar, hydrocodone p.r.n., Lidoderm patch, metoprolol, multivitamin, oxycodone, Zocor, and zinc sulfate doses unchanged. For now, we held his Flexeril and niacin. He will follow up with PCP in the next 7-10 days as scheduled. The patient was then discharged from our hospital in stable condition with explicit drug and followup care. Total discharge time spent 39 minutes. NAUN/JUAN PABLO/JASSON DR: NAUN/sera TID: [id number]
--- NOTE | 2021-02-22 12:16 | PN ---
DATE: 02/22/2021 ATTENDING PHYSICIAN: Dr. Dunbar. SUBJECTIVE: He remains very confused. He is in no acute distress, but he does not know his primary care physician. He states he lives at home with his son. He could not remember his son's name, could not remember his phone number. OBJECTIVE FINDINGS: VITAL SIGNS: Blood pressure this morning is 100/65, pulse is 82 and regular. He is afebrile. Oxygen saturation 90% on room air. HEENT: Head is without trauma. Pupils are reactive. Sclerae nonicteric. The oropharynx is clear. NECK: Supple, no bruits identified. LUNGS: Good breath sounds. CARDIOVASCULAR: Showed regular heart tones. No gallops. ABDOMEN: Soft. EXTREMITIES: Without edema. NEUROLOGIC: Profoundly confused. SKIN: Otherwise, warm and dry. LABORATORY DATA: His serology is negative for coronavirus. CBC showed elevated white count of 14,000, now down to 9000. Hemoglobin maintained at 13.3 g/dL. His electrolytes are improved. Creatinine has improved from 1.9 down to 1.3 mg/dL, BUN is 28, potassium 4.2 mEq. Cardiac enzymes were negative for coronary ischemia. ASSESSMENT: 1. This 85-year-old gentleman has altered mentation. He is still confused. He has profound underlying dementia. 2. Dehydration with acute kidney injury, improved. 3. Probable systemic inflammatory response syndrome. Cultures are negative so far. 4. History of diastolic congestive heart failure, compensated. 5. Coronary artery disease. 6. Essential hypertension, currently normotensive. PLAN: 1. Meds have been reviewed. 2. I am trying to track down his son for discharge. He left a couple of numbers. I have not been able to contact him. We do not have a safe discharge plan until I can get a hold of his family. NAUN/JUAN PABLO PARKER: Guru TID: [id number]
== END 2021-02-22 11:37 | disposition home or self-care (01) | DRG 177 ==
LOC: ER 02:30 → 1 SOUTH 05:38 → ER 18:35
PROVIDERS: ADMIT Internal Medicine; ATTEND Internal Medicine
DX: J15.6 Pneumonia due to other Gram-negative bacteria (principal); I50.33 Acute on chronic diastolic (congestive) heart failure; G93.41 Metabolic encephalopathy; N17.9 Acute kidney failure, unspecified; I13.0 Hypertensive heart and chronic kidney disease with heart failure and stage 1 through stage 4 chronic kidney disease, or unspecified chronic kidney disease; J15.9 Unspecified bacterial pneumonia; E03.9 Hypothyroidism, unspecified; E11.51 Type 2 diabetes mellitus with diabetic peripheral angiopathy without gangrene; E78.5 Hyperlipidemia, unspecified; E86.0 Dehydration; F03.90 Unspecified dementia, unspecified severity, without behavioral disturbance, psychotic disturbance, mood disturbance, and anxiety; I25.10 Atherosclerotic heart disease of native coronary artery without angina pectoris; I25.2 Old myocardial infarction; I27.20 Pulmonary hypertension, unspecified; I45.10 Unspecified right bundle-branch block; G89.29 Other chronic pain; K21.9 Gastro-esophageal reflux disease without esophagitis; N18.9 Chronic kidney disease, unspecified; K57.90 Diverticulosis of intestine, part unspecified, without perforation or abscess without bleeding; F41.9 Anxiety disorder, unspecified; I87.2 Venous insufficiency (chronic) (peripheral); Z96.652 Presence of left artificial knee joint; M15.9 Polyosteoarthritis, unspecified; N40.0 Benign prostatic hyperplasia without lower urinary tract symptoms; Z79.01 Long term (current) use of anticoagulants; Z82.49 Family history of ischemic heart disease and other diseases of the circulatory system; Z82.5 Family history of asthma and other chronic lower respiratory diseases; Z85.51 Personal history of malignant neoplasm of bladder; Z86.718 Personal history of other venous thrombosis and embolism; Z86.73 Personal history of transient ischemic attack (TIA), and cerebral infarction without residual deficits; Z87.891 Personal history of nicotine dependence; Z95.5 Presence of coronary angioplasty implant and graft; Z95.828 Presence of other vascular implants and grafts; Z90.49 Acquired absence of other specified parts of digestive tract
CPT/HCPCS: 36415; 51702; 70450; 71045; 71250; 80048; 80053; 80076; 81001; 82550; 82947; 83690; 83735; 83880; 84145; 84436; 84439; 84443; 84480; 84484; 85025; 85379; 85610; 85730; 86140; 87040; 87426; 87804; 93005; 93970; 96374; J0696; J1940; J7120; U0003; 97530; 99285-25

== ENCOUNTER 2021-05-26 09:48 | Emergency (ER) | payer MEDICARE, OTHER ==
[~2021-05-26] VITALS: Ht 210.8 cm; Wt 91.5 kg
[2021-05-26] MEDS ORDERED: ONDANSETRON PF 4 MG/2 ML VIAL. IVP ONE (10:30)
[2021-05-26] MEDS ORDERED: IV NORMAL SALINE 500ML 500 ML IV ONE (10:30)
[2021-05-26] MEDS ORDERED: CONTRAST GIVEN. MC PRN (10:45)
[2021-05-26] MEDS ORDERED: IOHEXOL 300 MG/ML 75 ML VIAL. IV ONE (10:45)
[2021-05-26 11:47] LABS: CALCIUM 8.1 mg/dL (8.5-10.1); CREATININE 1.1 mg/dL (0.7-1.3); GFR 63.6
[2021-05-26 12:00] LABS: ALBUMIN 2.2 g/dL (3.4-5.0); ALBUMIN/GLOBULIN RATIO 0.5 (1.0-1.7); TOTAL BILIRUBIN 0.6 mg/dL (0.2-1.0); TOTAL PROTEIN 6.4 g/dL (6.4-8.2)
[2021-05-26 12:04] LABS: BASO # 0.1 x10^3/uL (0.0-0.2); BASO % 1 % (0-3); EOS # 0.1 x10^3/uL (0.0-0.7); EOS % 1 % (0-3); HEMATOCRIT 37.6 % (39.0-53.0); HEMOGLOBIN 12.2 g/dL (13.0-17.5); LYMPH # 0.8 x10^3/uL (1.0-4.8); LYMPH % 6 % (24-48); MEAN CORPUSCULAR HEMOGLOBIN 30 pg (25-35); MEAN CORPUSCULAR HGB CONC 33 g/dL (31-37); MEAN CORPUSCULAR VOLUME 91 fL (79-100); MONO # 1.4 x10^3/uL (0.0-1.1); MONO % 10 % (0-9); NEUT # 11.3 x10^3uL (1.8-7.7); NEUT % 82 % (31-73); PLATELET COUNT 244 x10^3/uL (140-400); RED BLOOD COUNT 4.12 x10^6/uL (4.30-5.70); RED CELL DISTRIBUTION WIDTH 14.3 % (11.5-14.5); WHITE BLOOD COUNT 13.7 x10^3/uL (4.0-11.0)
[2021-05-26] MEDS ORDERED: IOHEXOL 350 MG/ML 100 ML VIAL. ONE ×2 (12:06→12:09)
--- NOTE | 2021-05-26 12:48 | RAD ---
US DPLX ARTR EXTREM LOWER BILAT Indication: Reason: leg pain bilat; poor pulses to distal BLEs / Spl. Instructions: / History: Comparison: None. Procedure: Real-time grayscale, color flow Doppler, and Doppler spectral waveform analysis of the art erial system of the lower extremity is performed. Findings: Right lower cervical and biphasic wave arthropathy right lower extremity. Mildly limited velocity wit hin the right superficial femoral artery measures 159 cm/s. Moderate atheromatous plaque. No occlusio n. Left lower extremity: Biphasic wave forms throughout the left lower extremity. No flow is identified within the left distal posterior tibial artery and peroneal artery. Mildly elevated velocity within t he left mid superficial femoral artery measures 157 cm/s. Moderate atheromatous plaque. IMPRESSION: 1. No flow identified within the LEFT distal posterior tibial and peroneal arteries, may represent o cclusion. CT angiogram can further assess if persistent clinical concern. 2. Moderate atheromatous plaque. 3. Mildly elevated velocity within the bilateral superficial femoral arteries, may indicate 30-49 pe rcent stenosis. Electronically signed by: Ari Ware DO (05/26/2021 12:46 PM) [id number]
[2021-05-26 13:02] VITALS: BP 121/65
--- NOTE | 2021-05-26 13:12 | RAD ---
XR CHEST 1V History: Reason: weakness / Spl. Instructions: / History: Comparison: February 20, 2021 Findings: Mild interstitial thickening. Small pleural effusion.. Unchanged cardiac size. No pneumothorax. Impression: 1. Mild interstitial thickening, likely chronic interstitial changes. 2. Small left pleural effusion. Electronically signed by: Ari Ware DO (05/26/2021 1:10 PM) [id number]
[2021-05-26] MEDS ORDERED: HEPARIN 25,000UTS/250ML PREMIX 250 ML IV PRN (13:45)
[2021-05-26] MEDS ORDERED: HEPARIN for IV BOLUS 10,000 UNIT/10 ML VIAL. IV PRN ×3 (13:45)
[2021-05-26] MEDS ORDERED: HEPARIN for IV BOLUS 10,000 UNIT/10 ML VIAL. IV ONE (13:45)
--- NOTE | 2021-05-26 13:45 | RAD ---
CTA AORTA/RUNOFF W/WO +POST History: Reason: DVT / Spl. Instructions: / History: Leg pain. Poor pulses. Abnormal ultrasound find ings. Technique: CT angiogram abdomen and pelvis with lower extremity runoff with intravenous contrast. Cor onal and sagittal reconstructions were performed. 3-D reconstructions were performed. Exposure: One or more of the following individualized dose reduction techniques were utilized for thi s examination: 1. Automated exposure control 2. Adjustment of the mA and/or kV according to patient size 3. Use of iterative reconstruction technique. Comparison: Ultrasound arterial May 26, 2021. CT abdomen pelvis November 11, 2019 Findings: Lower chest: Tiny left pleural effusion with adjacent atelectasis. Abdomen and pelvis: The liver, spleen, adrenal glands, and pancreas are unremarkable. Prior cholecyst ectomy. Bilateral renal cysts. Largest on the right measures 4.5 x 4.1 cm and left measures 4.4 x 3.9 cm. No renal calculi. No hydronephrosis. Colonic diverticulosis. Normal appendix. No evidence of bowel obstruction. No pathologic lymphadenopa thy. No ascites. Small right inguinal fat containing hernia. IVC filter noted. Nonopacification of the venous system throughout the bilateral lower extremities. T here are regions of infiltration adjacent to the veins most prominent on the left involving the left external iliac vein. Additional infiltration adjacent to the right superficial femoral and popliteal veins. Angiogram:Severe atheromatous plaque throughout the nonaneurysmal abdominal aorta and branch vessels. Mild narrowing of the celiac artery origin. Patent superior mesenteric artery. Patent renal arteries . Patent inferior mesenteric artery. Mild narrowing of the common iliac arteries due to calcified em que. Multifocal narrowing of the internal iliac arteries. Right lower extremity: Patent right external iliac artery. Mild narrowing of the common femoral arter y. Patent deep femoral artery. Moderate multifocal narrowing of the superficial femoral artery. Sever e focal narrowing of the proximal superficial femoral artery (series 5 image 275). Decreased opacific ation of distal arteries due to contrast bolus timing. Severe multifocal narrowing of the distal supe rficial femoral artery. Mild narrowing of the popliteal artery. Calcified plaque throughout the poste rior tibial, peroneal and anterior tibial arteries with lack of contrast opacification due to contras t bolus timing. Left lower extremity: Patent left external iliac artery. Mild narrowing of the common femoral artery. Moderate narrowing of the deep femoral artery. Multifocal moderate narrowing of the superficial femo ral artery. Severe focal narrowings of the mid superficial femoral artery (series 5 image [id number] and [id number]). Opacification of the distal arteries due to contrast bolus timing. Calcified posterior tibial, perone al and anterior tibial arteries without contrast opacification due to contrast bolus timing. Bones: Postoperative changes left proximal tibia bilateral knee DJD. Multilevel lumbar spondylosis. Impression: 1. Degraded evaluation of the distal arteries within the lower extremities due to contrast bolus jose carlos ing. Distal lower extremity runoff not evaluated due to lack of contrast. 2. Severe multifocal narrowing of the bilateral superficial femoral arteries. 3. Nonopacification of the venous system related to arterial contrast bolus. Regions of infiltration adjacent to the veins most prominent within the right lower extremity and left external iliac veins, may indicate thrombophlebitis. 4. IVC filter. A retrievable IVC filter is noted, and the referring physician is encouraged to ensure that a managem ent plan for this filter is in place. If no such plan is present, referral to an interventional clini amando on a non-emergent basis should be considered. Electronically signed by: Ari Ware DO (05/26/2021 1:43 PM) [id number]
--- NOTE | 2021-05-26 14:01 | PHYS DOC ---
Past History Past Medical History: Anxiety, Arthritis, Cancer, Dementia, Heart Disease, Hypertension, UTI Additional Past Medical Histor: chronic back pain Past Surgical History: Cholecystectomy, Other Additional Past Surgical Histo: hernia repair, Smoking: Non-smoker Alcohol Use: None Drug Use: None Adult General Chief Complaint Chief Complaint: MULTIPLE COMPLAINTS HPI HPI The patient is an 86-year-old male with a history of hypertension, hyperlipidemia, coronary artery disease, diastolic heart failure, CKD, dementia. Mr. Rubio presents for evaluation of leg discomfort with ambulation bilaterally. Patient has evidently been complaining of discomfort in his lower abdomen and his bilateral legs with any ambulation over the past 3 days. Family states this is not normal for him. Family state otherwise he is at his baseline and seems to not have any pain at all when he is sitting and resting comfortably. Associated mild anorexia over the past 3 days per family. Patient himself denies any complaints at all, states he feels fine and does not understand why he was brought to the hospital today. Vital signs are appropriate here and the patient is in no acute distress. Review of Systems Review of Systems A 12 point review of systems was completed and was negative except where noted in HPI above. Current Medications Current Medications Current Medications Medications (Trade) Dose Ordered Sig/Ever Start Time Stop Time Status Last Admin Dose Admin Heparin Sodium (Porcine) (Heparin Sodium) 1,000 unit PRN Q6HRS PRN 05/26/21 13:45 UNV Heparin Sodium/ Dextrose 250 ml @ 0 mls/hr CONT PRN 05/26/21 13:45 UNV Info (Do NOT chart on this entry -- for MONITORING) 1 each PRN DAILY PRN 05/26/21 10:45 05/28/21 10:44 Iohexol (Omnipaque 300 Mg/ml) 75 ml 1X ONCE 05/26/21 10:45 05/26/21 10:59 DC Iohexol (Omnipaque 350 Mg/ml) 100 ml STK-MED ONCE 05/26/21 12:09 05/26/21 12:09 DC Ondansetron HCl (Zofran) 4 mg 1X ONCE 05/26/21 10:30 05/26/21 10:33 DC 05/26/21 10:30 4 MG Sodium Chloride 500 ml @ 0 mls/hr 1X ONCE 05/26/21 10:30 05/26/21 10:33 DC 05/26/21 10:30 500 MLS/HR Allergies Allergies Allergies Coded Allergies Type Severity Reaction Last Updated Verified No Known Drug Allergies 01/23/19 No Physical Exam Physical Exam 86-year-old male appearing nontoxic and in no acute distress. Head is normocephalic and atraumatic. Neck is supple and nontender. Oropharynx is moist. Lungs are clear to auscultation at all stations. There is a normal S1 and S2 without rubs or gallops and capillary refill is appropriate, less than 2 seconds globally. Abdomen is soft, nontender and nondistended. Skin is warm and dry without cyanosis, clubbing or edema. Psychiatrically, the patient demonstrates appropriate mood and affect and is alert. Evaluation of the extremities reveals diminished pulses to bilateral feet with DP pulse minimally palpable on the right and not palpable on the left. There is mild calf tenderness bilaterally without erythema or swelling although there is chronic hemosiderin deposition to both calves. Sensation and strength are intact to the distal bilateral lower extremities. Capillary refill is appropriate to the distal bilateral lower extremities. No joint irritability to any joint of bilateral lower extremities. 2+ equal radial pulses to bilateral upper extremities, which are warm and well-perfused. Current Patient Data Vital Signs Vital Signs Date Time Temp Pulse Resp B/P (MAP) Pulse Ox O2 Delivery O2 Flow Rate FiO2 05/26/21 13:02 78 16 121/65 (83) 98 Room Air 05/26/21 09:53 98.4 Lab Results Laboratory Tests Test 05/26/21 11:16 White Blood Count 13.7 x10^3/uL (4.0-11.0) H Red Blood Count 4.12 x10^6/uL (4.30-5.70) L Hemoglobin 12.2 g/dL (13.0-17.5) L Hematocrit 37.6 % (39.0-53.0) L Mean Corpuscular Volume 91 fL (79-100) Mean Corpuscular Hemoglobin 30 pg (25-35) Mean Corpuscular Hemoglobin Concent 33 g/dL (31-37) Red Cell Distribution Width 14.3 % (11.5-14.5) Platelet Count 244 x10^3/uL (140-400) Neutrophils (%) (Auto) 82 % (31-73) H Lymphocytes (%) (Auto) 6 % (24-48) L Monocytes (%) (Auto) 10 % (0-9) H Eosinophils (%) (Auto) 1 % (0-3) Basophils (%) (Auto) 1 % (0-3) Neutrophils # (Auto) 11.3 x10^3uL (1.8-7.7) H Lymphocytes # (Auto) 0.8 x10^3/uL (1.0-4.8) L Monocytes # (Auto) 1.4 x10^3/uL (0.0-1.1) H Eosinophils # (Auto) 0.1 x10^3/uL (0.0-0.7) Basophils # (Auto) 0.1 x10^3/uL (0.0-0.2) Prothrombin Time 11.6 SEC (9.4-11.4) H Prothrombin Time INR 1.1 (0.9-1.1) Activated Partial Thromboplast Time 26 SEC (23-33) Sodium Level 137 mmol/L (136-145) Potassium Level 4.0 mmol/L (3.5-5.1) Chloride Level 100 mmol/L (98-107) Carbon Dioxide Level 26 mmol/L (21-32) Anion Gap 11 (6-14) Blood Urea Nitrogen 18 mg/dL (8-26) Creatinine 1.1 mg/dL (0.7-1.3) Estimated GFR (Cockcroft-Gault) 63.6 BUN/Creatinine Ratio 16 (6-20) Glucose Level 123 mg/dL (70-99) H Lactic Acid Level 1.8 mmol/L (0.4-2.0) Calcium Level 8.1 mg/dL (8.5-10.1) L Total Bilirubin 0.6 mg/dL (0.2-1.0) Aspartate Amino Transferase (AST) 34 U/L (15-37) Alanine Aminotransferase (ALT) 20 U/L (16-63) Alkaline Phosphatase 77 U/L (46-116) Troponin I High Sensitivity 8 ng/L (4-75) QA-Rkx-U-Type Natriuretic Peptide 793 pg/mL (0-449) H Total Protein 6.4 g/dL (6.4-8.2) Albumin 2.2 g/dL (3.4-5.0) L Albumin/Globulin Ratio 0.5 (1.0-1.7) L Lipase 34 U/L (73-393) L EKG EKG Atrial fibrillation, rate 96, no acute ST elevation or depression, right ventricular conduction delay, EP interpretation. Nonischemic tracing. Radiology/Procedures Radiology/Procedures CTA AORTA/RUNOFF W/WO +POST History: Reason: DVT / Spl. Instructions: / History: Leg pain. Poor pulses. Abnormal ultrasound findings. Technique: CT angiogram abdomen and pelvis with lower extremity runoff with intravenous contrast. Coronal and sagittal reconstructions were performed. 3-D reconstructions were performed. Exposure: One or more of the following individualized dose reduction techniques were utilized for this examination: 1. Automated exposure control 2. Adjustment of the mA and/or kV according to patient size 3. Use of iterative reconstruction technique. Comparison: Ultrasound arterial May 26, 2021. CT abdomen pelvis November 11, 2019 Findings: Lower chest: Tiny left pleural effusion with adjacent atelectasis. Abdomen and pelvis: The liver, spleen, adrenal glands, and pancreas are unremarkable. Prior cholecystectomy. Bilateral renal cysts. Largest on the right measures 4.5 x 4.1 cm and left measures 4.4 x 3.9 cm. No renal calculi. No hydronephrosis. Colonic diverticulosis. Normal appendix. No evidence of bowel obstruction. No pathologic lymphadenopathy. No ascites. Small right inguinal fat containing hernia. IVC filter noted. Nonopacification of the venous system throughout the bilateral lower extremities. There are regions of infiltration adjacent to the veins most prominent on the left involving the left external iliac vein. Additional infiltration adjacent to the right superficial femoral and popliteal veins. Angiogram:Severe atheromatous plaque throughout the nonaneurysmal abdominal aorta and branch vessels. Mild narrowing of the celiac artery origin. Patent superior mesenteric artery. Patent renal arteries. Patent inferior mesenteric artery. Mild narrowing of the common iliac arteries due to calcified plaque. Multifocal narrowing of the internal iliac arteries. Right lower extremity: Patent right external iliac artery. Mild narrowing of the common femoral artery. Patent deep femoral artery. Moderate multifocal narrowing of the superficial femoral artery. Severe focal narrowing of the proximal superficial femoral artery (series 5 image 275). Decreased opacification of distal arteries due to contrast bolus timing. Severe multifocal narrowing of the distal superficial femoral artery. Mild narrowing of the popliteal artery. Calcified plaque throughout the posterior tibial, peroneal and anterior tibial arteries with lack of contrast opacification due to contrast bolus timing. Left lower extremity: Patent left external iliac artery. Mild narrowing of the common femoral artery. Moderate narrowing of the deep femoral artery. Multifocal moderate narrowing of the superficial femoral artery. Severe focal narrowings of the mid superficial femoral artery (series 5 image 319 and image 347). Opacification of the distal arteries due to contrast bolus timing. Calcified posterior tibial, peroneal and anterior tibial arteries without contrast opacifi cation due to contrast bolus timing. Bones: Postoperative changes left proximal tibia bilateral knee DJD. Multilevel lumbar spondylosis. Impression: 1. Degraded evaluation of the distal arteries within the lower extremities due to contrast bolus timing. Distal lower extremity runoff not evaluated due to lack of contrast. 2. Severe multifocal narrowing of the bilateral superficial femoral arteries. 3. Nonopacification of the venous system related to arterial contrast bolus. Regions of infiltration adjacent to the veins most prominent within the right lower extremity and left external iliac veins, may indicate thrombophlebitis. 4. IVC filter. A retrievable IVC filter is noted, and the referring physician is encouraged to ensure that a management plan for this filter is in place. If no such plan is present, referral to an interventional clinician on a non-emergent basis should be considered. Electronically signed by: Ari Ware DO (05/26/2021 1:43 PM) [id number] DICTATED AND SIGNED BY: ARI WARE DO DATE: 05/26/211312 CC: SAROJ PETERSON MD; EDVIN SOLO ~ US DPLX ARTR EXTREM LOWER BILAT Indication: Reason: leg pain bilat; poor pulses to distal BLEs / Spl. Instructions: / History: Comparison: None. Procedure: Real-time grayscale, color flow Doppler, and Doppler spectral waveform analysis of the arterial system of the lower extremity is performed. Findings: Right lower cervical and biphasic wave arthropathy right lower extremity. Mildly limited velocity within the right superficial femoral artery measures 159 cm/s. Moderate atheromatous plaque. No occlusion. Left lower extremity: Biphasic wave forms throughout the left lower extremity. No flow is identified within the left distal posterior tibial artery and peroneal artery. Mildly elevated velocity within the left mid superficial femoral artery measures 157 cm/s. Moderate atheromatous plaque. IMPRESSION: 1. No flow identified within the LEFT distal posterior tibial and peroneal arteries, may represent occlusion. CT angiogram can further assess if persistent clinical concern. 2. Moderate atheromatous plaque. 3. Mildly elevated velocity within the bilateral superficial femoral arteries, may indicate 30-49 percent stenosis. Electronically signed by: Ari Ware DO (05/26/2021 12:46 PM) [id number] DICTATED AND SIGNED BY: ARI WARE DO DATE: 05/26/21 1244 CC: SAROJ PETERSON MD; EDVIN SOLO ~ Heart Score C/O Chest Pain: No Risk Factors: Risk Factors: DM, Current or recent (<one month) smoker, HTN, HLP, family history of CAD, obesity. Risk Scores: Risk Factors: DM, Current or recent (<one month) smoker, HTN, HLP, family history of CAD, obesity. Course & Med Decision Making Course & Med Decision Making Patient with bilateral occlusive DVT and also with suspected arterial blockages of the left lower extremity distally, with both feet warm and well-perfused and with normal strength and sensation, so doubt that patient is acutely infarcting his left lower leg. Have started heparin and will transfer the patient to [facility] for vascular surgical consultation and further care. Patient has an IVC filter on imaging so unlikely co-occurring PE and will defer CT angiography of the chest to the receiving team should they feel it is w arranted. Stable for transfer. All questions have been answered. Graciously accepted in transfer by Dr. Kemp. Critical care time was 45 minutes. Dragon Disclaimer Dragon Disclaimer This electronic medical record was generated, in whole or in part, using a voice recognition dictation system. Departure Departure: Impression: Primary Impression: Arterial occlusion, lower extremity Additional Impression: DVT of lower extremity, bilateral Disposition: 02 SHORT TERM HOSPITAL Condition: GUARDED Referrals: EDVIN SOLO (PCP) Problem Qualifiers Additional Impression: DVT of lower extremity, bilateral Affected thrombotic vein of extremity: other lower extremity vein Chronicity: acute Qualified Codes: I82.493 - Acute embolism and thrombosis of other specified deep vein of lower extremity, bilateral SAROJ PETERSON MD May 26, 2021 14:01
[2021-05-26 15:46] LABS: BACTERIA,URINE 0 /HPF (0-FEW); CLARITY,URINE HAZY; COLOR,URINE YELLOW; GLUCOSE,URINE NEG (NEG); NITRITE,URINE NEG (NEG); RBC,URINE 0 /HPF (0-2); SQUAMOUS EPITHELIAL CELL,UR FEW /LPF; WBC,URINE >40 /HPF (0-4)
--- NOTE | 2021-05-26 23:51 | EKG ---
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
--- NOTE | 2021-05-29 08:29 | RAD ---
US VENOUS History: Pain Comparison: None. Technique: Multiple longitudinal and transverse high resolution real-time images of the venous system of bilateral lower extremity were obtained with color and Doppler sampling. Findings: X-rays of deep vein thrombosis throughout the bilateral lower extremities involving the popliteal, po sterior tibial and peroneal veins. Impression: 1. Extensive bilateral lower extremity deep vein thrombosis. FOR INTERNAL CODING PURPOSES Critical result: Results were discussed with Dr. Campbell by biochemistry technologist at time of study. RESULT CODE: (C) Electronically signed by: Ari Ware DO (05/26/2021 11:36 AM) [id number]
== END 2021-05-26 16:42 | disposition short-term general hospital (02) ==
LOC: ER 09:48
DX: I77.1 Stricture of artery (principal); I82.493 Acute embolism and thrombosis of other specified deep vein of lower extremity, bilateral; R10.30 Lower abdominal pain, unspecified; E78.5 Hyperlipidemia, unspecified; I25.10 Atherosclerotic heart disease of native coronary artery without angina pectoris; I12.9 Hypertensive chronic kidney disease with stage 1 through stage 4 chronic kidney disease, or unspecified chronic kidney disease; N18.9 Chronic kidney disease, unspecified; F03.90 Unspecified dementia, unspecified severity, without behavioral disturbance, psychotic disturbance, mood disturbance, and anxiety; F41.9 Anxiety disorder, unspecified; M19.90 Unspecified osteoarthritis, unspecified site; G89.29 Other chronic pain
CPT/HCPCS: 36415; 71045; 74177; 75635; 80053; 81001; 83605; 83690; 83880; 84484; 85025; 85610; 85730; 87086; 93005; 93925; 93970; 96361; 96374; 99285; J2405; J7040

== ENCOUNTER 2021-07-21 00:04 | Emergency (ER) | payer MEDICARE, OTHER ==
[~2021-07-21] VITALS: Ht 175.3 cm; Wt 72.0 kg
--- NOTE | 2021-07-21 00:43 | RAD ---
PQRS Compliance Statement: One or more of the following individualized dose reduction techniques were utilized for this examinat ion: 1. Automated exposure control 2. Adjustment of the mA and/or kV according to patient size 3. Use of iterative reconstruction technique CT head and cervical spine without contrast 07/21/2021 12:14 AM INDICATION: Fall with head pain. COMPARISON: CT head 02/20/2021 TECHNIQUE: Multiple axial CT images of the head were obtained from skull base through the vertex with out intravenous contrast. Multiple axial CT images of the cervical spine were obtained without intrav enous contrast. Coronal and sagittal reformats are provided. FINDINGS: Head: Ventricles, sulci and basal cisterns are prominent compatible with moderate generalized cerebral line loss. Remote lacunar infarct involving the right thalamus. Remote lacunar infarct involving the righ t caudate head with expected dilatation of the frontal horn of the right lateral ventricle. Low-atten uation in the periventricular white matter is suggestive of chronic small vessel ischemic changes. Th ere is no hydrocephalus. Quiñones-white matter differentiation is normal. There is no acute intracranial hemorrhage. There is no mass, mass effect or midline shift. Posterior fossa is normal in appearance. Visualized portions of the orbits are normal with exception of bilateral lens replacement. Paranasal sinuses are well aerated. Mastoid air cells are well aerated. Scalp and calvaria are normal. Asymmetr ic prominence of the right jugular fossa without definite permeative mass. Remodeling of the temporal mandibular joints suggestive of chronic TMJ arthropathy. Cervical spine: Alignment of the cervical spine is normal. Skull base is intact. Craniocervical junction is normal in appearance. Atlantoaxial articulation is normal. Moderate anterior marginal osteophytosis, most sign ificant at C6-C7. Vertebral body heights are maintained without evidence for acute fracture. At C3-C4, there is a circumferential disc bulge. Moderate facet arthropathy. Mild uncovertebral joint disease. Mild left neuroforaminal stenosis. Mild spinal canal stenosis. At C4-C5, there is a posterior disc osteophyte complex. There is moderate to severe facet arthropathy . Mild uncovertebral joint disease. Moderate bilateral neuroforaminal stenosis, left greater than rig ht. At C5-C6, there is mild disc bulge with central disc protrusion. Moderate facet arthropathy. Mild unc overtebral joint disease. Mild bilateral neuroforaminal stenosis. No spinal canal stenosis. There is no prevertebral soft tissue swelling. Thyroid gland is normal in appearance. Biapical pleura l-parenchymal scarring. Calcified plaque identified at the carotid bifurcations. IMPRESSION: 1. No acute intracranial hemorrhage. Moderate generalized cerebral volume loss. Low-attenuation in th e periventricular white matter is suggestive of chronic small vessel ischemic changes. Remote lacunar infarcts identified in the right basal ganglia and right thalamus. 2. No acute fracture or malalignment of the cervical spine. Mild cervical spondylosis. 3. Chronic right TMJ arthropathy. Electronically signed by: Suzi Cardona MD (07/21/2021 12:41 AM) [facility]
--- NOTE | 2021-07-21 00:44 | RAD ---
XR CHEST 1V 07/21/2021 12:14 AM INDICATION: Pain, fall COMPARISON: 05/26/2021 TECHNIQUE: Portable frontal view of the chest is provided. FINDINGS: The cardiomediastinal silhouette is similar in appearance. Lungs are clear. Trace bilateral pleural effusions with adjacent compressive atelectasis versus infiltrates. There is no pulmonary vascular congestion. No pneumothorax. No suspicious osseous abnormality. IMPRESSION: Trace bilateral pleural effusions with adjacent bibasilar compressive atelectasis versus infiltrates, progressed. Electronically signed by: Suzi Cardona MD (07/21/2021 12:42 AM) [facility]
--- NOTE | 2021-07-21 00:56 | PHYS DOC ---
Past History Past Medical History: Anxiety, Arthritis, Cancer, Dementia, Heart Disease, Hypertension, UTI Additional Past Medical Histor: unable to answer questions at this time Past Surgical History: Other Additional Past Surgical Histo: unable to answer questions at this time Smoking: Non-smoker Alcohol Use: None Drug Use: None General Adult EDM: Chief Complaint: MECHANICAL FALL HPI: HPI: ". I had taken him to bed.. and next thing I heard was a thud... and I found him laying on his back with eye 's fluttering.. eventually he woke up... he had falled and hit the back of his head..." (Grandson) [phone] Patient is a 86 year old male who presents with above hx.. of fall and head injury. Patient had reportedly a momentary loss of consciousness after his fall. Patient does have a past medical history significant for congestive heart failure, hyperlipidemia, peripheral vascular disease, chronic venous insufficiency and chronic peripheral vascular disease. Does have a history of bladder cancer., COPD,, Pulmonary hypertension, diabetes, hyperkalemia, hyperlipidemia, tricuspid regurg, chronic low back pain, diabetes, benign prostatic hypertrophic changes, bilateral lower leg DVTs, osteoarthritis, shuffling gait,. Patient has had history of surgery for Hiatal hernia, cholecystecomy, Lt ankle reconstruction, cataract extraction, Lt. knee surgery, .. Patient no longer smokes has a 21-year pack history. Patient discharged from [facility] approximate 1 month ago after fall and rehab. Patient normally follows with [facility] for care. Review of Systems: Review of Systems: Constitutional: Denies fever or chills Eyes: Denies change in visual acuity HENT: Denies nasal congestion or sore throat Respiratory: Denies cough or shortness of breath Cardiovascular: Denies chest pain or edema GI: Denies abdominal pain, nausea, vomiting, bloody stools or diarrhea : Denies dysuria Musculoskeletal: Denies back pain or joint pain Integument: Denies rash Neurologic: Denies headache, focal weakness or sensory changes Endocrine: Denies polyuria or polydipsia Lymphatic: Denies swollen glands Psychiatric: Denies depression or anxiety Family History: Family History: History of twin brother who age 70 because of COPD. Father 60s from MS, mother when he was 4 years old. Current Medications: Current Meds: See nursing for home meds Allergies: Allergies: Allergies Coded Allergies Type Severity Reaction Last Updated Verified No Known Drug Allergies 01/23/19 No Physical Exam: PE: Constitutional: Mild distress, non-toxic appearance. [] HENT: Normocephalic, contusion posterior scalp, bilateral external ears normal, oropharynx moist, no oral exudates, nose normal. [] Eyes: Corneal scar conjunctiva normal, no discharge. [] Neck: Limited range of motion, upper neck tenderness, supple, no stridor. [] Cardiovascular:Heart rate regular rhythm, flow murmur, PMI to left Lungs & Thorax: Bilateral breath sounds scattered wheezes throughout on auscultation [] Abdomen: Bowel sounds normal, soft, no tenderness, no masses, no pulsatile masses. Old surgery scars Skin: Warm, dry, no erythema, no rash. Poor turgor. Marked venous stasis changes in lower limbs Back: Some upper back tenderness, no CVA tenderness. Kyphosis Extremities: No tenderness, no cyanosis, no clubbing, limited range of motion but moves all extremities on request, no edema. Arthritic changes. No obvious cording. Extensive venous stasis changes and decreased distal pulses in legs. Neurologic: Alert and oriented X 2, moves all extremities on request,, decreased lower limb plantar sensory,, no new focal deficits noted by grandson. Does have a shuffling gait. Psychologic: Affect anxious judgement normal, mood normal. [] Current Patient Data: Vital Signs: Vital Signs Date Time Temp Pulse Resp B/P (MAP) Pulse Ox O2 Delivery O2 Flow Rate FiO2 07/21/21 00:15 97.6 67 16 128/63 (84) 96 Room Air EKG: EKG: My interpretation of EKG shows a sinus rhythm at 72 bpm. Slightly prolonged RI interval, bimodal P waves, right bundle branch block. Time of initial EKG is 114 hours. My interpretation of second EKG shows wavering baseline, right bundle branch block. Some findings suggestive of A. fib however P waves can be discerned. Time of EKG is 253 hours [] Radiology/Procedures: Radiology/Procedures: [ IMAGING REPORT Signed PATIENT: JAMES DAVID ACCOUNT: [id number] : 1935 LOCATION: ER AGE: 86 SEX: M EXAM STATUS: REG ER ORD. PHYSICIAN: MICHEAL MOYER MD REASON: OMNI 350, 100ML IV.Hypoxia, elevated D- dimer PROCEDURE: CT ANGIOGRAPHY CHEST RS Compliance Statement: One or more of the following individualized dose reduction techniques were utilized for this examination: 1. Automated exposure control 2. Adjustment of the mA and/or kV according to patient size 3. Use of iterative reconstruction technique CTA CHEST 07/21/2021 4:33 AM INDICATION: Hypoxia, elevated d-dimer COMPARISON: CT chest 02/21/2021 TECHNIQUE: Axial CT images of the chest were obtained after the intravenous administration of nonionic contrast. Coronal and sagittal reformats are provided. Maximum intensity projection images of the thoracic vasculature are provided. FINDINGS: The thyroid gland is normal in appearance. There are no pathologically enlarged axillary, mediastinal or hilar lymph nodes. The heart size is enlarged. Three- vessel coronary vascular calcifications are present. No significant pericardial effusion. Thoracic aorta is normal in course and caliber. There is adequate opacification of the pulmonary arterial system. There there are no filling defects within the pulmonary arterial system to suggest acute or chronic pulmonary embolus. Small bilateral pleural effusions. Bronchial wall thickening compatible with nonspecific bronchitis. Mild centrilobular pulmonary emphysema. Biapical ple ural-parenchymal scarring. Moderate to advanced pancreas atrophy. Simple cyst in the superior pole the left kidney measures 4.4 cm. Cholecystectomy. Remote healed right lateral third through eighth rib fractures. IMPRESSION: There is no evidence for acute or chronic pulmonary embolism. Small bilateral chronic pleural effusions with adjacent compressive atelectasis or pleural thickening. COPD changes. Biapical pleural parenchymal scarring. Heart size is enlarged. Three-vessel coronary vascular calcifications. Electronically signed by: Emmanuel Flores MD (07/21/2021 5:45 AM) [facility] DICTATED AND SIGNED BY: EMMANUEL FLORES MD DATE: 07/21/21537 CC: MICHEAL MOYER MD; EDVIN SOLO ~ ][address] [id number] IMAGING REPORT Signed PATIENT: JAMES DAVID ACCOUNT: [id number] : 1935 LOCATION: ER AGE: 86 SEX: M EXAM STATUS: PRE ER ORD. PHYSICIAN: MICHEAL MOYER MD REASON: pain, FALL PROCEDURE: PORTABLE CHEST 1V XR CHEST 1V 07/21/2021 12:14 AM INDICATION: Pain, fall COMPARISON: 05/26/2021 TECHNIQUE: Portable frontal view of the chest is provided. FINDINGS: The cardiomediastinal silhouette is similar in appearance. Lungs are clear. Trace bilateral pleural effusions with adjacent compressive atelectasis versus infiltrates. There is no pulmonary vascular congestion. No pneumothorax. No suspicious osseous abnormality. IMPRESSION: Trace bilateral pleural effusions with adjacent bibasilar compressive atelectasis versus infiltrates, progressed. Electronically signed by: Emmanuel Flores MD (07/21/2021 12:42 AM) [facility] DICTATED AND SIGNED BY: EMMANUEL FLORES MD DATE: 07/21/2140 CC: MICHEAL MOYER MD; EDVIN SOLO PA ~ SEX: MEXAM ACCESSION#: [id number] STATUS: PRE ER ORD. PHYSICIAN: MICHEAL MOYER MD REASON: fall and head injury PROCEDURE: CT HEAD AND CERVICAL SPINE WO PQRS Compliance Statement: One or more of the following individualized dose reduction techniques were utilized for this examination: 1. Automated exposure control 2. Adjustment of the mA and/or kV according to patient size 3. Use of iterative reconstruction technique CT head and cervical spine without contrast 07/21/2021 12:14 AM INDICATION: Fall with head pain. COMPARISON: CT head 02/20/2021 TECHNIQUE: Multiple axial CT images of the head were obtained from skull base through the vertex without intravenous contrast. Multiple axial CT images of the cervical spine were obtained without intravenous contrast. Coronal and sagittal reformats are provided. FINDINGS: Head: Ventricles, sulci and basal cisterns are prominent compatible with moderate generalized cerebral line loss. Remote lacunar infarct involving the right thalamus. Remote lacunar infarct involving the right caudate head with expected dilatation of the frontal horn of the right lateral ventricle. Low-attenuation in the periventricular white matter is suggestive of chronic small vessel ischemic changes. There is no hydrocephalus. Quiñones-white matter differentiation is normal. There is no acute intracranial hemorrhage. There is no mass, mass effect or midline shift. Posterior fossa is normal in appearance. Visualized portions of the orbits are normal with exception of bilateral lens replacement. Paranasal sinuses are well aerated. Mastoid air cells are well aerated. Scalp and calvaria are normal. Asymmetric prominence of the right jugular fossa without definite permeative mass. Remodeling of the temporal mandibular joints suggestive of chronic TMJ arthropathy. Cervical spine: Alignment of the cervical spine is normal. Skull base is intact. Craniocervical junction is normal in appearance. Atlantoaxial articulation is normal. Moderate anterior marginal osteophytosis, most significant at C6-C7. Vertebral body heights are maintained without evidence for acute fracture. At C3-C4, there is a circumferential disc bulge. Moderate facet arthropathy. Mild uncovertebral joint disease. Mild left neuroforaminal stenosis. Mild spinal canal stenosis. At C4-C5, there is a posterior disc osteophyte complex. There is moderate to severe facet arthropathy. Mild uncovertebral joint disease. Moderate bilateral neuroforaminal stenosis, left greater than right. At C5-C6, there is mild disc bulge with central disc protrusion. Moderate facet arthropathy. Mild uncovertebral joint disease. Mild bilateral neuroforaminal stenosis. No spinal canal stenosis. There is no prevertebral soft tissue swelling. Thyroid gland is normal in appearance. Biapical pleural-parenchymal scarring. Calcified plaque identified at the carotid bifurcations. IMPRESSION: 1. No acute intracranial hemorrhage. Moderate generalized cerebral volume loss. Low-attenuation in the periventricular white matter is suggestive of chronic s mall vessel ischemic changes. Remote lacunar infarcts identified in the right basal ganglia and right thalamus. 2. No acute fracture or malalignment of the cervical spine. Mild cervical spondylosis. 3. Chronic right TMJ arthropathy. Electronically signed by: Emmanuel Flores MD (07/21/2021 12:41 AM) [facility] Heart Score: C/O Chest Pain: N/A HEART Score for Chest Pain: HEART Score for Chest Pain Response (Comments) Value History Moderately Suspicious 1 ECG Nonspecific Repolarizatio 1 Age > 65 2 Risk Factors 1 or 2 Risk Factors 1 Troponin < Normal Limit 0 Total 5 Risk Factors: Risk Factors: DM, Current or recent (<one month) smoker, HTN, HLP, family history of CAD, obesity. Risk Scores: Score 0 - 3: 2.5% MACE over next 6 weeks - Discharge Home Score 4 - 6: 20.3% MACE over next 6 weeks - Admit for Clinical Observation Score 7 - 10: 72.7% MACE over next 6 weeks - Early Invasive Strategies Course & Med Decision Making: Course & Med Decision Making Pertinent Labs and Imaging studies reviewed. (See chart for details) Follow-up primary. Return if any concerns. Must continue anticoagulation meds. Follow instructions prevent falls. Consider use of walker. Impression: 1. Fall 2. Head Injury 3. Anemia hemoglobin 12.2 4. Elevated BNP 553 5. Malnutrition Alb. 2.9 6. Elevated magnesium 2.5 7. Elevated D-dimer 7.11 8. History of advanced dementia [] Dragon Disclaimer: Dragon Disclaimer: This electronic medical record was generated, in whole or in part, using a voice recognition dictation system. Departure Departure: Referrals: EDVIN SOLO (PCP) Dragon Disclaimer This chart was dictated in whole or in part using Voice Recognition software in a busy, high-work load, and often noisy Emergency Department environment. It may contain unintended and wholly unrecognized errors or omissions. Dragon Disclaimer This chart was dictated in whole or in part using Voice Recognition software in a busy, high-work load, and often noisy Emergency Department environment. It may contain unintended and wholly unrecognized errors or omissions. MICHEAL MOYER MD July 21, 2021 00:56
[2021-07-21] MEDS: IV RINGERS SOLUTION,LACTATED 1,000 ML IV SCH ×2 (01:00→01:57)
[2021-07-21 02:13] LABS: BASO % 0 % (0-3); EOS # 0.2 x10^3/uL (0.0-0.7); EOS % 2 % (0-3); HEMATOCRIT 37.9 % (39.0-53.0); HEMOGLOBIN 12.2 g/dL (13.0-17.5); LYMPH # 0.9 x10^3/uL (1.0-4.8); LYMPH % 10 % (24-48); MEAN CORPUSCULAR HEMOGLOBIN 29 pg (25-35); MEAN CORPUSCULAR HGB CONC 32 g/dL (31-37); MEAN CORPUSCULAR VOLUME 90 fL (79-100); MONO # 0.8 x10^3/uL (0.0-1.1); MONO % 8 % (0-9); NEUT # 7.8 x10^3uL (1.8-7.7); NEUT % 80 % (31-73); PLATELET COUNT 229 x10^3/uL (140-400); RED BLOOD COUNT 4.21 x10^6/uL (4.30-5.70); RED CELL DISTRIBUTION WIDTH 15.4 % (11.5-14.5); WHITE BLOOD COUNT 9.7 x10^3/uL (4.0-11.0)
[2021-07-21 02:24] LABS: CALCIUM 8.8 mg/dL (8.5-10.1); CREATININE 1.2 mg/dL (0.7-1.3); GFR 57.5; POTASSIUM 4.1 mmol/L (3.5-5.1)
[2021-07-21 02:37] LABS: ALBUMIN 2.9 g/dL (3.4-5.0); DIRECT BILIRUBIN 0.1 mg/dL (0.0-0.2); MAGNESIUM 2.5 mg/dL (1.8-2.4); TOTAL BILIRUBIN 0.3 mg/dL (0.2-1.0); TOTAL PROTEIN 6.9 g/dL (6.4-8.2)
[2021-07-21 04:17] LABS: BARBITURATES NEG (NEG); BENZODIAZEPINES NEG (NEG); CANNABINOIDS NEG (NEG); COCAINE NEG (NEG); METHADONE NEG (NEG); OPIATES NEG (NEG); PHENCYCLIDINE NEG (NEG)
[2021-07-21 04:32] LABS: INFLUENZA A PATIENT NEGATIVE (NEGATIVE); INFLUENZA B PATIENT NEGATIVE (NEGATIVE)
[2021-07-21 04:36] LABS: AMPHETAMINE/METHAMPHETAMINE NEG (NEG)
[2021-07-21] MEDS ORDERED: CONTRAST GIVEN. MC PRN (04:45)
[2021-07-21 04:56] LABS: CLARITY,URINE CLEAR; COLOR,URINE YELLOW; GLUCOSE,URINE NEG (NEG); NITRITE,URINE NEG (NEG)
[2021-07-21 04:57] LABS: BACTERIA,URINE FEW /HPF (0-FEW); SQUAMOUS EPITHELIAL CELL,UR FEW /LPF
[2021-07-21] MEDS ORDERED: IOHEXOL 350 MG/ML 100 ML VIAL. IV ONE (05:00)
--- NOTE | 2021-07-21 05:48 | RAD ---
PQRS Compliance Statement: One or more of the following individualized dose reduction techniques were utilized for this examinat ion: 1. Automated exposure control 2. Adjustment of the mA and/or kV according to patient size 3. Use of iterative reconstruction technique CTA CHEST 07/21/2021 4:33 AM INDICATION: Hypoxia, elevated d-dimer COMPARISON: CT chest 02/21/2021 TECHNIQUE: Axial CT images of the chest were obtained after the intravenous administration of nonioni c contrast. Coronal and sagittal reformats are provided. Maximum intensity projection images of the t horacic vasculature are provided. FINDINGS: The thyroid gland is normal in appearance. There are no pathologically enlarged axillary, mediastinal or hilar lymph nodes. The heart size is enlarged. Three-vessel coronary vascular calcifications are present. No significant pericardial effusion. Thoracic aorta is normal in course and caliber. There is adequate opacification of the pulmonary arterial system. There there are no filling defects within the pulmonary arterial system to suggest acute or chronic pulmonary embolus. Small bilateral pleural effusions. Bronchial wall thickening compatible with nonspecific bronchitis. Mild centrilobular pulmonary emphysema. Biapical pleural-parenchymal scarring. Moderate to advanced pancreas atrophy. Simple cyst in the superior pole the left kidney measures 4.4 cm. Cholecystectomy. Remote healed right lateral third through eighth rib fractures. IMPRESSION: There is no evidence for acute or chronic pulmonary embolism. Small bilateral chronic pleural effusions with adjacent compressive atelectasis or pleural thickening . COPD changes. Biapical pleural parenchymal scarring. Heart size is enlarged. Three-vessel coronary vascular calcifications. Electronically signed by: Suzi Cardona MD (07/21/2021 5:45 AM) [facility]
[2021-07-21 06:15] VITALS: BP 134/78
== END 2021-07-21 06:19 | disposition home or self-care (01) ==
LOC: ER 00:04
DX: S00.03XA Contusion of scalp, initial encounter (principal); R79.1 Abnormal coagulation profile; D64.9 Anemia, unspecified; R79.89 Other specified abnormal findings of blood chemistry; F03.90 Unspecified dementia, unspecified severity, without behavioral disturbance, psychotic disturbance, mood disturbance, and anxiety; F41.9 Anxiety disorder, unspecified; M19.90 Unspecified osteoarthritis, unspecified site; I11.9 Hypertensive heart disease without heart failure; E78.5 Hyperlipidemia, unspecified; I50.9 Heart failure, unspecified; I11.0 Hypertensive heart disease with heart failure; J44.9 Chronic obstructive pulmonary disease, unspecified; E11.9 Type 2 diabetes mellitus without complications; G89.29 Other chronic pain; Z87.440 Personal history of urinary (tract) infections; W18.39XA Other fall on same level, initial encounter; Y93.89 Activity, other specified; Y92.89 Other specified places as the place of occurrence of the external cause; Y99.8 Other external cause status
CPT/HCPCS: 36415; 70450; 71045; 71275; 72125; 80048; 80076; 80307; 81001; 82550; 83690; 83735; 83880; 84443; 84484; 85025; 85379; 85610; 85730; 87077; 87086; 87186; 87804; 93005; 96360; 96361; 99285; J7120; Q9967; 87428